=== PATIENT | male | born 1945 | race Caucasian/White ===

== ENCOUNTER 2017-01-11 20:45 | Emergency (ER) | payer MEDICARE, OTHER ==
[2017-01-11 21:16] LABS: Hematocrit 48 % (42-52); Hemoglobin 15.9 g/dl (14.0-18.0); Mean Corpuscular HGB Conc 33 g/dl (31-36); Mean Corpuscular Hemoglobin 35 pg (27-31); Mean Corpuscular Volume 104 fL (80-94); Mean Platelet Volume 7 um3 (7.4-10.4); Red Cell Distribution Width 17 % (10.5-15)
[2017-01-11 21:24] LABS: Add Diff/Slide Review? Slide Review Added; Comments Flag Yes
[2017-01-11 21:31] LABS: ALT 21 U/L (7-52); AST 33 U/L (13-39); Albumin 4.3 g/dL (3.2-5.2); Alkaline Phosphatase 57 U/L (34-104); Anion Gap 13 mmol/L (2-11); BUN/Creatinine Ratio 17.7 (8-20); Blood Urea Nitrogen 25 mg/dL (6-24); CO2 Carbon Dioxide 21 mmol/L (22-32); Calcium 8.7 mg/dL (8.6-10.3); Chloride 105 mmol/L (101-111); EGFR African American 64.1 (>60); EGFR Non-African American 49.8 (>60); Globulin 3.1 g/dL (2-4); Glucose 82 mg/dL (70-100); Potassium 4.5 mmol/L (3.5-5.0); Sodium 139 mmol/L (133-145); Total Protein 7.4 g/dL (6.4-8.9)
[2017-01-11 21:59] LABS: Acetaminophen < 15 mcg/mL; Neutrophil % 41 % (38-83); RBC Morphology Normal (Normal); Reactive Lymph % 3 % (0-6); Salicylate < 2.50 mg/dL (<30)
[2017-01-11 22:00] LABS: Alcohol 440 mg/dL (<10)
[2017-01-11 22:06] LABS: TSH (Thyroid Stimulating Horm) 4.32 mcIU/mL (0.34-5.60)
--- NOTE | 2017-01-11 22:35 | RAD ---
Indication: Fall, head injury. CT of the brain was performed without IV contrast. Ventricular structures are midline. No midline shift is noted. The extra-axial spaces are unremarkable. There is no evidence of intracranial mass or hemorrhage. No other high or low density lesions are identified. Mastoid air cells and paranasal sinuses are otherwise unremarkable. IMPRESSION: No intracranial mass or hemorrhage is noted.
--- NOTE | 2017-01-11 23:49 | ED ---
Meghna Gallegos Alok, scribed for Maria E Laguna MD on 01/11/17 at 2217 . Substance Abuse/Use - HPI Summary HPI Summary: 71M presents to the ED BIBA for ETOH intoxication. Pt's girlfriend notes fall with probable head trauma. - History Of Current Complaint Chief Complaint: EDGeneral Stated Complaint: ETOH Time Seen by Provider: 01/11/17 20:52 Hx Obtained From: Patient, Family/Historical Guide Onset/Duration of Drug/ETOH Abuse: Hours Severity Initially: Moderate Severity Currently: Moderate Character: Other - intoxicated Aggravating Factor(s): Nothing Alleviating Factor(s): Nothing Associated Signs And Symptoms: Altered Mental Status, Other: - Allergies/Home Medications Allergies/Adverse Reactions: Allergies Allergy/AdvReac Type Severity Reaction Status Date / Time No Known Allergies Allergy Verified 01/25/16 09:36 PMH/Surg Hx/FS Hx/Imm Hx Endocrine/Hematology History: Denies: Hx Anticoagulant Therapy, Hx Blood Disorders, Hx Blood Transfusions, Hx Bone Marrow Disease, Hx Diabetes, Hx Systemic Lupus Erythematosus, Hx Sickle Cell Disease, Hx Thyroid Disease, Hx Anemia, Hx Unexplained Bleeding, Other Endocrine/Hematological Disorders Cardiovascular History: Reports: Hx Atrial Fibrillation, Hx Deep Vein Thrombosis , Hx Embolism - Pulmonary Embolism, Hx Hypercholesterolemia, Hx Hypertension - TAKES NO MEDS, Other Cardiovascular Problems/Disorders - HIGH CHOLESTEROL Denies: Hx Aneurysm, Hx Angina, Hx Auto Implanted Cardiovert Defib, Hx Cardiac Arrest, Hx Cardiomegaly, Hx Congenital Heart Disease, Hx Congestive Heart Failure, Hx Coronary Artery Disease, Hx Hypotension, Hx Pacemaker/ICD, Hx Peripheral Vascular Disease, Hx Rheumatic Fever, Hx Syncope, Hx Valvular Heart Disease Respiratory History: Reports: Hx Pleural Effusion, Hx Pulmonary Embolism Denies: Hx Asthma, Hx Chronic Bronchitis, Hx Chronic Obstructive Pulmonary Disease (COPD), Hx Cystic Fibrosis, Hx Lung Cancer, Hx Pneumonia, Hx Pulmonary Edema, Hx Seasonal Allergies, Hx Sleep Apnea, Other Respiratory Problems/ Disorders GI History: Denies: Hx Cirrhosis, Hx Crohn's Disease, Hx Diverticulosis, Hx Gall Bladder Disease, Hx Gastroesophageal Reflux Disease, Hx Gastrointestinal Bleed, Hx Hiatal Hernia, Hx Irritable Bowel, Hx Jaundice, Hx Obstructive Bowel, Hx Ileostomy, Hx Pyloric Stenosis, Hx Ulcer, Other GI Disorders History: Denies: Hx Acute Renal Failure, Hx Benign Prostatic Hyperplasia, Hx Chronic Renal Failure, Hx Dialysis, Hx Kidney Infection, Hx Kidney Stones, Other Problems/Disorders Musculoskeletal History: Reports: Other Musculoskeletal History - R hip relpacement Denies: Hx Arthritis, Hx Back Problems, Hx Bursitis, Hx Congenital Bone Abnormalities, Hx Fibromyalgia, Hx Gout, Hx Orthopedic Injury, Hx Osteoporosis, Hx Scoliosis, Hx Tendonitis Sensory History: Reports: Hx Contacts or Glasses Denies: Hx Cataracts, Hx Eye Injury, Hx Eye Prosthesis, Hx Glaucoma, Hx Legally Blind, Hx Macular Degeneration, Hx Vision Problem, Hx Deafness, Hx Hearing Aid, Hx Hearing Problem, Other Sensory Impairments Opthamlomology History: Reports: Hx Contacts or Glasses Denies: Hx Cataracts, Hx Eye Injury, Hx Eye Prosthesis, Hx Glaucoma, Hx Legally Blind, Hx Macular Degeneration, Hx Vision Problem, Other Sensory Impairments Neurological History: Reports: Other Neuro Impairments/Disorders - Bilateral foot numbness Denies: Hx Dementia, Hx Developmental Delay, Hx Headaches, Hx Migraine, Hx Nerve Disease, Hx Seizures, Hx Spinal Cord Injury, Hx Transient Ischemic Attacks (TIA) Psychiatric History: Reports: Hx Anxiety, Hx Depression, Hx Inpatient Treatment , Hx Community Mental Health Tx, Hx Suicide Attempt, Hx Substance Abuse Denies: Hx Attention Deficit Hyperactivity Disorder, Hx Eating Disorder, Hx Panic Disorder, Hx Post Traumatic Stress Disorder, Hx Schizophrenia, Hx Bipolar Disorder, Hx of Violent Episodes Against Others, Other Psychiatric Issues/ Disorders - Surgical History Surgery Procedure, Year, and Place: RT HIP REPLACEMENT Hx Anesthesia Reactions: No - Immunization History Date of Tetanus Vaccine: Unk Date of Influenza Vaccine: Unk Infectious Disease History: No Infectious Disease History: Reports: Hx Hepatitis - Reported via blood bank upon donation, Hx Shingles Denies: Hx Clostridium Difficile, Hx Human Immunodeficiency Virus (HIV), Hx of Known/Suspected MRSA, Hx Tuberculosis, History Other Infectious Disease, Traveled Outside the [place] in Last 30 Days - Family History Known Family History: Negative: Cardiac Disease, Hypertension, Diabetes - Social History Lives: Alone Alcohol Use: Daily Alcohol Amount: gin Hx Substance Use: No Substance Use Type: Reports: None Hx Tobacco Use: No Smoking Status (MU): Never Smoked Tobacco Review of Systems Negative: Fever Positive: Other - ETOH intoxication All Other Systems Reviewed And Are Negative: Yes Physical Exam Triage Information Reviewed: Yes Vital Signs On Initial Exam: Initial Vitals BP 144/85 01/11/17 20:56 Vital Signs Reviewed: Yes Appearance: Positive: Well-Appearing, No Pain Distress Skin: Positive: Warm, Skin Color Reflects Adequate Perfusion, Dry Eyes: Positive: EOMI, MELISSA ENT: Positive: Pharynx normal, TMs normal Neck: Positive: Supple, Nontender Respiratory/Lung Sounds: Positive: Clear to Auscultation, Breath Sounds Present. Negative: Rales, Rhonchi, Wheezes Cardiovascular: Positive: RRR, Other - no gallop. Negative: Murmur, Rub Abdomen Description: Positive: Nontender, Soft, Other: - no rebound. Negative: Distended, Guarding Bowel Sounds: Positive: Present Musculoskeletal: Positive: Strength/ROM Intact. Negative: Edema Left, Edema Right Neurological: Positive: Sensory/Motor Intact, Alert, Oriented to Person Place, Time, CN Intact II-III Psychiatric: Positive: Affect/Mood Appropriate - [place] Coma Scale Coma Scale Total: 15 Diagnostics - Vital Signs Vital Signs Temp Pulse Resp BP Pulse Ox 01/11/17 21:58 69 16 99/64 01/11/17 21:30 73 14 99/64 92 01/11/17 21:21 98.4 F 58 16 123/78 95 01/11/17 21:18 98.4 F 58 16 123/78 95 01/11/17 21:00 98 14 123/78 96 01/11/17 20:58 60 16 97 01/11/17 20:56 144/85 - Laboratory Lab Results: Lab Results 01/11/17 01/11/17 Range/Units 21:10 21:10 WBC 9.0 (3.5-10.8) 10^3/ul RBC 4.60 (4.0-5.4) 10^6/ul Hgb 15.9 (14.0-18.0) g/dl Hct 48 (42-52) % MCV 104 H (80-94) fL MCH 35 H (27-31) pg MCHC 33 (31-36) g/dl RDW 17 H (10.5-15) % Plt Count 213 (150-450) 10^3/ul MPV 7 L (7.4-10.4) um3 Neut % (Auto) 39.9 (38-83) % Lymph % (Auto) 51.3 H (25-47) % [place] % (Auto) 6.6 (1-9) % Eos % (Auto) 0.5 (0-6) % Baso % (Auto) 1.7 (0-2) % Absolute Neuts (auto) 3.6 (1.5-7.7) 10^3/ul Absolute Lymphs (auto) 4.6 (1.0-4.8) 10^3/ul Absolute Monos (auto) 0.6 (0-0.8) 10^3/ul Absolute Eos (auto) 0 (0-0.6) 10^3/ul Absolute Basos (auto) 0.2 (0-0.2) 10^3/ul Absolute Nucleated RBC 0.01 10^3/ul Neutrophils % 41 (38-83) % Lymphocytes % 53 H (25-47) % Reactive Lymphs % 3 (0-6) % Monocytes % 2 (0-13) % Basophils % 1 (0-2) % Nucleated RBC % 0.1 Normal RBC Morphology Normal (Normal) Sodium 139 (133-145) mmol/L Potassium 4.5 (3.5-5.0) mmol/L Chloride 105 (101-111) mmol/L Carbon Dioxide 21 L (22-32) mmol/L Anion Gap 13 H (2-11) mmol/L BUN 25 H (6-24) mg/dL Creatinine 1.41 H (0.67-1.17) mg/dL Est GFR ( Amer) 64.1 (>60) Est GFR (Non-Af Amer) 49.8 (>60) BUN/Creatinine Ratio 17.7 (8-20) Glucose 82 (70-100) mg/dL Calcium 8.7 (8.6-10.3) mg/dL Total Bilirubin 0.60 (0.2-1.0) mg/dL AST 33 (13-39) U/L ALT 21 (7-52) U/L Alkaline Phosphatase 57 (34-104) U/L Total Protein 7.4 (6.4-8.9) g/dL Albumin 4.3 (3.2-5.2) g/dL Globulin 3.1 (2-4) g/dL Albumin/Globulin Ratio 1.4 (1-3) TSH 4.32 (0.34-5.60) mcIU/mL Salicylates < 2.50 (<30) mg/dL Acetaminophen < 15 mcg/mL Serum Alcohol 440 H* (<10) mg/dL Result Diagrams: 01/11/17 21:10 01/11/17 21:10 Lab Statement: Any lab studies that have been ordered have been reviewed, and results considered in the medical decision making process. - CT Brain CT CT Interpretation: Positive (See Comments) - IMPRESSION: No intracranial mass or hemorrhage is noted. CT Interpretation Completed By: Radiologist Course/Dx - Course Course Of Treatment: 71 yo male here after girlfriend found lodged between couch and wall, but she was unable to pick him up. He is asking for her to come , but his level is over 400, plan is for her to come at 5am and get him.CT brain neg no signs of trauma - Diagnoses Provider Diagnoses: ETOH intoxication Discharge - Discharge Plan Condition: Stable Disposition: HOME Patient Education Materials: Alcohol Intoxication (ED) Referrals: Onur Rodriguez MD [Primary Care Provider] - The documentation as recorded by the Meghna quintanilla Alok accurately reflects the service I personally performed and the decisions made by me, Maria E Lagnua MD.
[2017-01-12] MEDS ORDERED: LORazepam TAB(*) 1 MG PO ONE (01:37)
[2017-01-12 05:25] VITALS: BP 117/77
== END 2017-01-12 05:23 | disposition home or self-care (01) ==
LOC: ED 20:45
DX: F10.129 Alcohol abuse with intoxication, unspecified (principal); Y90.8 Blood alcohol level of 240 mg/100 ml or more; I10 Essential (primary) hypertension; I48.91 Unspecified atrial fibrillation; E78.00 Pure hypercholesterolemia, unspecified; F41.9 Anxiety disorder, unspecified; F32.9 Major depressive disorder, single episode, unspecified; Z86.718 Personal history of other venous thrombosis and embolism; Z86.711 Personal history of pulmonary embolism; Z96.641 Presence of right artificial hip joint
CPT/HCPCS: 36415; 70450; 80053; 80320; 80329; 84443; 85025; 99284; A9270-GY; G0480

== ENCOUNTER 2017-11-17 13:10 | Emergency (ER) | payer MEDICARE, OTHER ==
[2017-11-17] MEDS ORDERED: NS 0.9% 1000 ML* 2,000 ML IV ONE ×2 (14:56→17:32)
[2017-11-17 15:06] LABS: ABS Basophils 0.1 10^3/ul (0-0.2); ABS Eosinophils 0 10^3/ul (0-0.6); ABS Lymphocytes 2.3 10^3/ul (1.0-4.8); ABS Monocytes 0.3 10^3/ul (0-0.8); ABS Neutrophils 2.5 10^3/ul (1.5-7.7); ABS Nucleated RBC 0 10^3/ul; Eosinophil % 0.8 % (0-6); Hematocrit 44 % (42-52); Hemoglobin 15.1 g/dl (14.0-18.0); Lymphocyte % 43.4 % (25-47); Mean Corpuscular HGB Conc 34 g/dl (31-36); Mean Corpuscular Hemoglobin 35 pg (27-31); Mean Corpuscular Volume 101 fL (80-94); Mean Platelet Volume 7.3 um3 (7.4-10.4); Nucleated Red Blood Cells % 0.1; Platelet Count 144 10^3/ul (150-450); Red Blood Count 4.37 10^6/ul (4.0-5.4); Red Cell Distribution Width 14 % (10.5-15); White Blood Count 5.2 10^3/ul (3.5-10.8)
[2017-11-17 15:22] LABS: EGFR Non-African American 60.4 (>60)
[2017-11-17 18:26] VITALS: BP 139/90
--- NOTE | 2017-11-17 19:07 | ED ---
Ting Gallegos Emily, scribed for Lisseth Ackerman MD on 11/17/17 at 1435 . Substance Abuse/Use - HPI Summary HPI Summary: This patient is a 72 year old M BIBA to [facility] accompanied by friend with a chief complaint of ETOH intoxication that occurred [employer]. The patient rates the pain 0/10 in severity. Symptoms aggravated by nothing. Symptoms alleviated by nothing. Patient reports purple finger tips. Patient denies CP and SOB. Pt reports having 2L of gin [employer]. - History Of Current Complaint Chief Complaint: EDSubstanceAbuse Stated Complaint: ETOH Time Seen by Provider: 11/17/17 13:47 Hx Obtained From: Patient Ingestion History: Type/Name Of Drug - ETOH Overdose Characteristics: Oral Timing Of Abuse: Daily Severity Initially: Mild Severity Currently: Mild Aggravating Factor(s): Nothing Alleviating Factor(s): Nothing - Allergies/Home Medications Allergies/Adverse Reactions: Allergies Allergy/AdvReac Type Severity Reaction Status Date / Time No Known Allergies Allergy Verified 11/17/17 13:32 PMH/Surg Hx/FS Hx/Imm Hx Previously Healthy: No Endocrine/Hematology History: Denies: Hx Anticoagulant Therapy, Hx Blood Disorders, Hx Blood Transfusions, Hx Bone Marrow Disease, Hx Diabetes, Hx Systemic Lupus Erythematosus, Hx Sickle Cell Disease, Hx Thyroid Disease, Hx Anemia, Hx Unexplained Bleeding, Other Endocrine/Hematological Disorders Cardiovascular History: Reports: Hx Atrial Fibrillation, Hx Deep Vein Thrombosis , Hx Embolism - Pulmonary Embolism, Hx Hypercholesterolemia, Hx Hypertension - TAKES NO MEDS, Other Cardiovascular Problems/Disorders - HIGH CHOLESTEROL Denies: Hx Aneurysm, Hx Angina, Hx Auto Implanted Cardiovert Defib, Hx Cardiac Arrest, Hx Cardiomegaly, Hx Congenital Heart Disease, Hx Congestive Heart Failure, Hx Coronary Artery Disease, Hx Hypotension, Hx Pacemaker/ICD, Hx Peripheral Vascular Disease, Hx Rheumatic Fever, Hx Syncope, Hx Valvular Heart Disease Respiratory History: Reports: Hx Pleural Effusion, Hx Pulmonary Embolism Denies: Hx Asthma, Hx Chronic Bronchitis, Hx Chronic Obstructive Pulmonary Disease (COPD), Hx Cystic Fibrosis, Hx Lung Cancer, Hx Pneumonia, Hx Pulmonary Edema, Hx Seasonal Allergies, Hx Sleep Apnea, Other Respiratory Problems/ Disorders GI History: Denies: Hx Cirrhosis, Hx Crohn's Disease, Hx Diverticulosis, Hx Gall Bladder Disease, Hx Gastroesophageal Reflux Disease, Hx Gastrointestinal Bleed, Hx Hiatal Hernia, Hx Irritable Bowel, Hx Jaundice, Hx Obstructive Bowel, Hx Ileostomy, Hx Pyloric Stenosis, Hx Ulcer, Other GI Disorders History: Denies: Hx Acute Renal Failure, Hx Benign Prostatic Hyperplasia, Hx Chronic Renal Failure, Hx Dialysis, Hx Kidney Infection, Hx Kidney Stones, Hx Renal Disease, Other Problems/Disorders Musculoskeletal History: Reports: Other Musculoskeletal History - R hip relpacement Denies: Hx Arthritis, Hx Back Problems, Hx Bursitis, Hx Congenital Bone Abnormalities, Hx Fibromyalgia, Hx Gout, Hx Orthopedic Injury, Hx Osteoporosis, Hx Scoliosis, Hx Tendonitis Sensory History: Reports: Hx Contacts or Glasses Denies: Hx Cataracts, Hx Eye Injury, Hx Eye Prosthesis, Hx Glaucoma, Hx Legally Blind, Hx Macular Degeneration, Hx Vision Problem, Hx Deafness, Hx Hearing Aid, Hx Hearing Problem, Other Sensory Impairments Opthamlomology History: Reports: Hx Contacts or Glasses Denies: Hx Cataracts, Hx Eye Injury, Hx Eye Prosthesis, Hx Glaucoma, Hx Legally Blind, Hx Macular Degeneration, Hx Vision Problem, Other Sensory Impairments Neurological History: Reports: Other Neuro Impairments/Disorders - Bilateral foot numbness Denies: Hx Dementia, Hx Developmental Delay, Hx Headaches, Hx Migraine, Hx Nerve Disease, Hx Seizures, Hx Spinal Cord Injury, Hx Transient Ischemic Attacks (TIA) Psychiatric History: Reports: Hx Anxiety, Hx Depression, Hx Inpatient Treatment , Hx Community Mental Health Tx, Hx Suicide Attempt, Hx Substance Abuse Denies: Hx Attention Deficit Hyperactivity Disorder, Hx Eating Disorder, Hx Panic Disorder, Hx Post Traumatic Stress Disorder, Hx Schizophrenia, Hx Bipolar Disorder, Hx of Violent Episodes Against Others, Other Psychiatric Issues/ Disorders - Surgical History Surgery Procedure, Year, and Place: RT HIP REPLACEMENT Hx Anesthesia Reactions: No - Immunization History Date of Tetanus Vaccine: Unk Date of Influenza Vaccine: Unk Infectious Disease History: No Infectious Disease History: Reports: Hx Hepatitis - Reported via blood bank upon donation, Hx Shingles Denies: Hx Clostridium Difficile, Hx Human Immunodeficiency Virus (HIV), Hx of Known/Suspected MRSA, Hx Tuberculosis, History Other Infectious Disease, Traveled Outside the [place] in Last 30 Days - Family History Known Family History: Positive: None Negative: Cardiac Disease, Hypertension, Diabetes - Social History Occupation: Retired Lives: Alone Alcohol Use: Daily Alcohol Amount: gin Hx Substance Use: No Substance Use Type: Reports: None Hx Tobacco Use: No Smoking Status (MU): Never Smoked Tobacco Review of Systems Positive: Other - Positive purple fingertips. Negative: Chest Pain Negative: Shortness Of Breath All Other Systems Reviewed And Are Negative: Yes Physical Exam - Summary Physical Exam Summary: Appearance: Obese, Intoxicated Skin: Warm, no evidence of cyanosis Eyes: Normal ENT: Normal Head/Face: bilateral erythematous cheeks Neck: Supple, nontender Respiratory: Clear to auscultation Cardiovascular: Regular rate, regular rhythm. Normal S1, S2. Capillary refill less than 2 seconds Abdomen: Soft, nontender Musculoskeletal: Normal, Strength/ROM Intact Neurological: Normal, A&Ox3 Psychiatric: Normal General: No acute distress Triage Information Reviewed: Yes Vital Signs On Initial Exam: Initial Vitals Temp Pulse Resp BP Pulse Ox 98.3 F 82 16 118/64 92 11/17/17 13:32 11/17/17 13:32 11/17/17 13:32 11/17/17 13:32 11/17/17 13:32 Vital Signs Reviewed: Yes - [place] Coma Scale Best Eye Response: 4 - Spontaneous Best Motor Response: 6 - Obeys Commands Best Verbal Response: 5 - Oriented Coma Scale Total: 15 Diagnostics - Vital Signs Vital Signs Temp Pulse Resp BP Pulse Ox 11/17/17 13:32 98.3 F 82 16 118/64 92 - Laboratory Lab Results: Lab Results 11/17/17 11/17/17 11/17/17 Range/Units 14:56 14:56 14:56 WBC 5.2 (3.5-10.8) 10^3/ul RBC 4.37 (4.0-5.4) 10^6/ul Hgb 15.1 (14.0-18.0) g/dl Hct 44 (42-52) % MCV 101 H (80-94) fL MCH 35 H (27-31) pg MCHC 34 (31-36) g/dl RDW 14 (10.5-15) % Plt Count 144 L (150-450) 10^3/ul MPV 7.3 L (7.4-10.4) um3 Neut % (Auto) 48.6 (38-83) % Lymph % (Auto) 43.4 (25-47) % [place] % (Auto) 6.0 (0-7) % Eos % (Auto) 0.8 (0-6) % Baso % (Auto) 1.2 (0-2) % Absolute Neuts (auto) 2.5 (1.5-7.7) 10^3/ul Absolute Lymphs (auto) 2.3 (1.0-4.8) 10^3/ul Absolute Monos (auto) 0.3 (0-0.8) 10^3/ul Absolute Eos (auto) 0 (0-0.6) 10^3/ul Absolute Basos (auto) 0.1 (0-0.2) 10^3/ul Absolute Nucleated RBC 0 10^3/ul Nucleated RBC % 0.1 Sodium 143 (139-145) mmol/L Potassium 4.2 (3.5-5.0) mmol/L Chloride 104 (101-111) mmol/L Carbon Dioxide 24 (22-32) mmol/L Anion Gap 15 H (2-11) mmol/L BUN 31 H (6-24) mg/dL Creatinine 1.19 H (0.67-1.17) mg/dL Est GFR ( Amer) 77.7 (>60) Est GFR (Non-Af Amer) 60.4 (>60) BUN/Creatinine Ratio 26.1 H (8-20) Glucose 121 H (70-100) mg/dL Lactic Acid 2.8 H* (0.5-2.0) mmol/L Calcium 8.8 (8.6-10.3) mg/dL Total Bilirubin 0.60 (0.2-1.0) mg/dL AST 35 (13-39) U/L ALT 30 (7-52) U/L Alkaline Phosphatase 43 (34-104) U/L Troponin I 0.00 (<0.04) ng/mL Total Protein 7.3 (6.4-8.9) g/dL Albumin 4.3 (3.2-5.2) g/dL Globulin 3.0 (2-4) g/dL Albumin/Globulin Ratio 1.4 (1-3) TSH 3.07 (0.34-5.60) mcIU/mL Salicylates < 2.50 (<30) mg/dL Acetaminophen < 15 mcg/mL Serum Alcohol 377 H (<10) mg/dL Result Diagrams: 11/17/17 14:56 11/17/17 14:56 Lab Statement: Any lab studies that have been ordered have been reviewed, and results considered in the medical decision making process. Course/Dx - Course Assessment/Plan: after 1L of IVF pt REFUSED TO STAY LONGER. PARTNER NOTIFIED. DISCUSSED RISKS OF LEAVING AMA INCLUDING FALL AND DT'S OR WORSE. PT STILL WISHES TO GO AMA. PARTNER CAME TO GET PT AND TO DRIVE HIM HOME AND LEFT AMA - Diagnoses Provider Diagnoses: Alcohol intoxication, Alcohol abuse Discharge - Sign-Out/Discharge Documenting (check all that apply): Discharge - Left AMA - Discharge Plan Condition: Stable Disposition: AGAINST MEDICAL ADVICE Referrals: Onur Rodriguez MD [Primary Care Provider] - - Billing Disposition and Condition Condition: STABLE Disposition: AMA The documentation as recorded by the Ting quintanilla Emily accurately reflects the service I personally performed and the decisions made by me, Lisseth Ackerman MD.
== END 2017-11-17 17:45 | disposition left against medical advice (07) ==
LOC: ED 13:10
DX: F10.129 Alcohol abuse with intoxication, unspecified (principal); Z53.21 Procedure and treatment not carried out due to patient leaving prior to being seen by health care provider
CPT/HCPCS: 36415; 80053; 80320; 80329; 83605; 84443; 84484; 85025; 96360; 99283; G0480

== ENCOUNTER 2017-11-20 10:54 | Inpatient (IN) | payer MEDICARE, OTHER ==
[2017-11-20] MEDS ORDERED: LORazepam INJ* 2 MG/ML 1 ML VIAL IV PUSH ONE ×2 (11:20→13:08)
[2017-11-20] MEDS ORDERED: Ondansetron INJ* 2 MG/ML VIAL IV ONE (11:20)
[2017-11-20] MEDS ORDERED: Thiamine IV* 100 MG/ML 2 ML VIAL IV ONE (11:20)
[2017-11-20] MEDS: NS 0.9% 1000 ML* 2,000 ML IV ONE (11:40)
[2017-11-20] MEDS ORDERED: Thiamine IV* 100 MG in NS 0.9% 50 ML* 50 ML IV ONE (12:00)
[2017-11-20 12:08] LABS: Hematocrit 37 % (42-52); Hemoglobin 12.8 g/dl (14.0-18.0); Mean Corpuscular HGB Conc 35 g/dl (31-36); Mean Corpuscular Hemoglobin 35 pg (27-31); Mean Corpuscular Volume 101 fL (80-94); Red Blood Count 3.66 10^6/ul (4.0-5.4); Red Cell Distribution Width 14 % (10.5-15); White Blood Count 8.9 10^3/ul (3.5-10.8)
[2017-11-20 12:09] LABS: INR 1.25 (0.77-1.02)
[2017-11-20 12:21] LABS: EGFR Non-African American 62.9 (>60)
[2017-11-20 12:26] LABS: Urine Appearance Clear; Urine Blood 1+ (Negative); Urine Color Yellow; Urine Ketones Trace (Negative); Urine Protein Negative (Negative); Urine Specific Gravity 1.013 (1.010-1.030); Urine Urobilinogen Negative (Negative)
[2017-11-20 12:35] LABS: ABS Basophils 0.1 10^3/ul (0-0.2); ABS Eosinophils 0 10^3/ul (0-0.6); ABS Lymphocytes 0.4 10^3/ul (1.0-4.8); ABS Monocytes 0.3 10^3/ul (0-0.8); ABS Neutrophils 8.1 10^3/ul (1.5-7.7); ABS Nucleated RBC 0 10^3/ul; Eosinophil % 0.1 % (0-6); Lymphocyte % 4.9 % (25-47); Nucleated Red Blood Cells % 0; Platelet Count 91 10^3/ul (150-450)
--- NOTE | 2017-11-20 13:02 | RAD ---
INDICATION: Hypoxemia. Fever COMPARISON: [id number] TECHNIQUE: PA and lateral dual-energy views were obtained. FINDINGS: Bones/Soft Tissues: There are no acute bony findings. Cardiomediastinal: The cardiomediastinal silhouette is normal. Lungs: There are no infiltrates. There is hyperinflation. Pleura: There are no pleural effusions. Other: None IMPRESSION: HYPERINFLATION. NO ACTIVE DISEASE.
[2017-11-20] MEDS ORDERED: Metoprolol Tartrate IV* 1 MG/ML 5 ML VIAL IV ONE (13:08)
[2017-11-20] MEDS ORDERED: Al Hydrox/Mg Hydrox/Simet LIQ* 30 ML UDC PO PRN (13:31)
[2017-11-20] MEDS ORDERED: Ondansetron INJ* 2 MG/ML VIAL IV PRN (13:31)
[2017-11-20] MEDS ORDERED: Iohexol 350* (CONTRAST) 500 ML MDV IV ONE (13:35)
[2017-11-20] MEDS ORDERED: Acetaminophen TAB* 325 MG PO PRN ×2 (13:37→14:28)
[2017-11-20] MEDS ORDERED: Magnesium Sulfate 2 GM IV* 2 GM/50 ML BAG IVPB ONE (13:58)
--- NOTE | 2017-11-20 13:58 | ED ---
Sofya Gallegos Julia, scribed for Troy Jimenez MD on 11/20/17 at 1126 . Substance Abuse/Use - HPI Summary HPI Summary: This patient is a 72 year old M presenting [facility] accompanied by a friend with a chief complaint of tremors, difficulty ambulating, nausea and vomiting for the past two days. Patient has a history of alcohol abuse, but was sober for the past eight months before relapsing on 11/10/17. He states he has been drinking a liter of gin each day for ten days. He was seen in the ED, drunk, on 11/17/17. He has not eaten yet today. He states he doesnt know why he began drinking again, and has gone through withdrawal and rehab multiple times. Patient denies current pain. Medications list reviewed. - History Of Current Complaint Chief Complaint: EDSubstanceAbuse Stated Complaint: ALCOHOL WITHDRAWALS Time Seen by Provider: 11/20/17 11:11 Hx Obtained From: Patient Onset/Duration of Drug/ETOH Abuse: Increased Since: - 11/10/17 Ingestion History: Type/Name Of Drug - etoh States Increased Use Since: 11/10/17 Overdose Characteristics: Oral Timing Of Abuse: Binge Use, Recent Cessation For A Period Of - 8 months Aggravating Factor(s): Nothing Associated Signs And Symptoms: Nausea, Vomiting, Other: - tremors and difficulty with ambulation Related Hx: Drug/Alcohol Last Used @ - 11/17/17, Prior Drug Abuse Counseling/ Admission - Allergies/Home Medications Allergies/Adverse Reactions: Allergies Allergy/AdvReac Type Severity Reaction Status Date / Time No Known Allergies Allergy Verified 11/17/17 13:32 Home Medications: Home Medications Atorvastatin* [Lipitor*] 20 mg PO BEDTIME 11/20/17 [History Confirmed 11/20/17] PMH/Surg Hx/FS Hx/Imm Hx Endocrine/Hematology History: Denies: Hx Anticoagulant Therapy, Hx Blood Disorders, Hx Blood Transfusions, Hx Bone Marrow Disease, Hx Diabetes, Hx Systemic Lupus Erythematosus, Hx Sickle Cell Disease, Hx Thyroid Disease, Hx Anemia, Hx Unexplained Bleeding, Other Endocrine/Hematological Disorders Cardiovascular History: Reports: Hx Atrial Fibrillation, Hx Deep Vein Thrombosis , Hx Embolism - Pulmonary Embolism, Hx Hypercholesterolemia, Hx Hypertension - TAKES NO MEDS, Other Cardiovascular Problems/Disorders - HIGH CHOLESTEROL Denies: Hx Aneurysm, Hx Angina, Hx Auto Implanted Cardiovert Defib, Hx Cardiac Arrest, Hx Cardiomegaly, Hx Congenital Heart Disease, Hx Congestive Heart Failure, Hx Coronary Artery Disease, Hx Hypotension, Hx Pacemaker/ICD, Hx Peripheral Vascular Disease, Hx Rheumatic Fever, Hx Syncope, Hx Valvular Heart Disease Respiratory History: Reports: Hx Pleural Effusion, Hx Pulmonary Embolism Denies: Hx Asthma, Hx Chronic Bronchitis, Hx Chronic Obstructive Pulmonary Disease (COPD), Hx Cystic Fibrosis, Hx Lung Cancer, Hx Pneumonia, Hx Pulmonary Edema, Hx Seasonal Allergies, Hx Sleep Apnea, Other Respiratory Problems/ Disorders GI History: Denies: Hx Cirrhosis, Hx Crohn's Disease, Hx Diverticulosis, Hx Gall Bladder Disease, Hx Gastroesophageal Reflux Disease, Hx Gastrointestinal Bleed, Hx Hiatal Hernia, Hx Irritable Bowel, Hx Jaundice, Hx Obstructive Bowel, Hx Ileostomy, Hx Pyloric Stenosis, Hx Ulcer, Other GI Disorders History: Denies: Hx Acute Renal Failure, Hx Benign Prostatic Hyperplasia, Hx Chronic Renal Failure, Hx Dialysis, Hx Kidney Infection, Hx Kidney Stones, Hx Renal Disease, Other Problems/Disorders Musculoskeletal History: Reports: Other Musculoskeletal History - R hip relpacement Denies: Hx Arthritis, Hx Back Problems, Hx Bursitis, Hx Congenital Bone Abnormalities, Hx Fibromyalgia, Hx Gout, Hx Orthopedic Injury, Hx Osteoporosis, Hx Scoliosis, Hx Tendonitis Sensory History: Reports: Hx Contacts or Glasses Denies: Hx Cataracts, Hx Eye Injury, Hx Eye Prosthesis, Hx Glaucoma, Hx Legally Blind, Hx Macular Degeneration, Hx Vision Problem, Hx Deafness, Hx Hearing Aid, Hx Hearing Problem, Other Sensory Impairments Opthamlomology History: Reports: Hx Contacts or Glasses Denies: Hx Cataracts, Hx Eye Injury, Hx Eye Prosthesis, Hx Glaucoma, Hx Legally Blind, Hx Macular Degeneration, Hx Vision Problem, Other Sensory Impairments Neurological History: Reports: Other Neuro Impairments/Disorders - Bilateral foot numbness Denies: Hx Dementia, Hx Developmental Delay, Hx Headaches, Hx Migraine, Hx Nerve Disease, Hx Seizures, Hx Spinal Cord Injury, Hx Transient Ischemic Attacks (TIA) Psychiatric History: Reports: Hx Anxiety, Hx Depression, Hx Inpatient Treatment , Hx Community Mental Health Tx, Hx Suicide Attempt, Hx Substance Abuse Denies: Hx Attention Deficit Hyperactivity Disorder, Hx Eating Disorder, Hx Panic Disorder, Hx Post Traumatic Stress Disorder, Hx Schizophrenia, Hx Bipolar Disorder, Hx of Violent Episodes Against Others, Other Psychiatric Issues/ Disorders - Surgical History Surgery Procedure, Year, and Place: RT HIP REPLACEMENT Hx Anesthesia Reactions: No - Immunization History Date of Tetanus Vaccine: Unk Date of Influenza Vaccine: Unk Infectious Disease History: Yes Infectious Disease History: Reports: Hx Hepatitis - Reported via blood bank upon donation, Hx Shingles Denies: Hx Clostridium Difficile, Hx Human Immunodeficiency Virus (HIV), Hx of Known/Suspected MRSA, Hx Tuberculosis, History Other Infectious Disease, Traveled Outside the [place] in Last 30 Days - Family History Known Family History: Negative: Cardiac Disease, Hypertension, Diabetes - Social History Lives: Alone Alcohol Use: Daily Alcohol Amount: gin Hx Substance Use: No Substance Use Type: Reports: None Hx Tobacco Use: No Smoking Status (MU): Never Smoked Tobacco Review of Systems Positive: Vomiting, Nausea Neurological: Other - tremors, difficulty walking All Other Systems Reviewed And Are Negative: Yes Physical Exam - Summary Physical Exam Summary: Appearance: Well appearing, no pain distress Skin: warm, dry, reflects adequate perfusion, moist mucous membranes Head/face: normal Eyes: EOMI, MELISSA, no nystagmus ENT: normal Neck: supple, non-tender Respiratory: CTA, breath sounds present Cardiovascular: Tachycardic, mostly regular rate with some irregularity, pulses symmetrical Abdomen: non-tender, soft Bowel Sounds: present Musculoskeletal: strength/ROM intact, tremoring Neuro: normal, sensory motor intact, A&Ox3 Triage Information Reviewed: Yes Vital Signs On Initial Exam: Initial Vitals Temp Pulse Resp BP Pulse Ox 99.1 F 113 20 174/103 99 11/20/17 11:01 11/20/17 11:01 11/20/17 11:01 11/20/17 11:01 11/20/17 11:01 Vital Signs Reviewed: Yes Diagnostics - Vital Signs Vital Signs Temp Pulse Resp BP Pulse Ox 11/20/17 11:01 99.1 F 113 20 174/103 99 - Laboratory Lab Results: Lab Results 11/20/17 11/20/17 11/20/17 Range/Units 11:37 11:40 11:40 WBC 8.9 (3.5-10.8) 10^3/ul RBC 3.66 L (4.0-5.4) 10^6/ul Hgb 12.8 L (14.0-18.0) g/dl Hct 37 L (42-52) % MCV 101 H (80-94) fL MCH 35 H (27-31) pg MCHC 35 (31-36) g/dl RDW 14 (10.5-15) % Plt Count 91 L D (150-450) 10^3/ul MPV 8.0 (7.4-10.4) um3 Neut % (Auto) 90.9 H (38-83) % Lymph % (Auto) 4.9 L (25-47) % Casey % (Auto) 3.5 (0-7) % Eos % (Auto) 0.1 (0-6) % Baso % (Auto) 0.6 (0-2) % Absolute Neuts (auto) 8.1 H (1.5-7.7) 10^3/ul Absolute Lymphs (auto) 0.4 L (1.0-4.8) 10^3/ul Absolute Monos (auto) 0.3 (0-0.8) 10^3/ul Absolute Eos (auto) 0 (0-0.6) 10^3/ul Absolute Basos (auto) 0.1 (0-0.2) 10^3/ul Absolute Nucleated RBC 0 10^3/ul Nucleated RBC % 0 Hem Pathologist Commnt Pending INR (Anticoag Therapy) (0.77-1.02) ABG pH 7.56 H (7.35-7.45) ABG pCO2 27 L (35-45) mmHg ABG pO2 57 L* (80-100) mmHg ABG HCO3 27.1 (19-31) mmol/L ABG O2 Saturation 95.6 (95-98) % ABG Base Excess 3.0 H (-2.0-2.0) Sodium (139-145) mmol/L Potassium (3.5-5.0) mmol/L Chloride (101-111) mmol/L Carbon Dioxide (22-32) mmol/L Anion Gap (2-11) mmol/L BUN (6-24) mg/dL Creatinine (0.67-1.17) mg/dL Est GFR ( Amer) (>60) Est GFR (Non-Af Amer) (>60) BUN/Creatinine Ratio (8-20) Glucose (70-100) mg/dL Lactic Acid 1.6 (0.5-2.0) mmol/L Calcium (8.6-10.3) mg/dL Magnesium (1.9-2.7) mg/dL Total Bilirubin (0.2-1.0) mg/dL AST (13-39) U/L ALT (7-52) U/L Alkaline Phosphatase (34-104) U/L Total Protein (6.4-8.9) g/dL Albumin (3.2-5.2) g/dL Globulin (2-4) g/dL Albumin/Globulin Ratio (1-3) Vitamin B12 (180-914) pg/mL Folate (>3.99) ng/mL TSH (0.34-5.60) mcIU/mL Urine Color Urine Appearance Urine pH (5-9) Ur Specific [place] (1.010-1.030) Urine Protein (Negative) Urine Ketones (Negative) Urine Blood (Negative) Urine Nitrate (Negative) Urine Bilirubin (Negative) Urine Urobilinogen (Negative) Ur Leukocyte Esterase (Negative) Urine WBC (Auto) (Absent) Urine RBC (Auto) (Absent) Ur Squamous Epith Cells (Absent) Urine Bacteria (Absent) Urine Glucose (Negative) 11/20/17 11/20/17 11/20/17 Range/Units 11:40 11:40 11:50 WBC (3.5-10.8) 10^3/ul RBC (4.0-5.4) 10^6/ul Hgb (14.0-18.0) g/dl Hct (42-52) % MCV (80-94) fL MCH (27-31) pg MCHC (31-36) g/dl RDW (10.5-15) % Plt Count (150-450) 10^3/ul MPV (7.4-10.4) um3 Neut % (Auto) (38-83) % Lymph % (Auto) (25-47) % Casey % (Auto) (0-7) % Eos % (Auto) (0-6) % Baso % (Auto) (0-2) % Absolute Neuts (auto) (1.5-7.7) 10^3/ul Absolute Lymphs (auto) (1.0-4.8) 10^3/ul Absolute Monos (auto) (0-0.8) 10^3/ul Absolute Eos (auto) (0-0.6) 10^3/ul Absolute Basos (auto) (0-0.2) 10^3/ul Absolute Nucleated RBC 10^3/ul Nucleated RBC % Hem Pathologist Commnt INR (Anticoag Therapy) 1.25 H (0.77-1.02) ABG pH (7.35-7.45) ABG pCO2 (35-45) mmHg ABG pO2 (80-100) mmHg ABG HCO3 (19-31) mmol/L ABG O2 Saturation (95-98) % ABG Base Excess (-2.0-2.0) Sodium 132 L D (139-145) mmol/L Potassium 3.9 (3.5-5.0) mmol/L Chloride 100 L (101-111) mmol/L Carbon Dioxide 21 L (22-32) mmol/L Anion Gap 11 (2-11) mmol/L BUN 17 (6-24) mg/dL Creatinine 1.15 (0.67-1.17) mg/dL Est GFR ( Amer) 80.9 (>60) Est GFR (Non-Af Amer) 62.9 (>60) BUN/Creatinine Ratio 14.8 (8-20) Glucose 143 H (70-100) mg/dL Lactic Acid (0.5-2.0) mmol/L Calcium 8.6 (8.6-10.3) mg/dL Magnesium 1.2 L (1.9-2.7) mg/dL Total Bilirubin 1.20 H (0.2-1.0) mg/dL AST 30 (13-39) U/L ALT 21 (7-52) U/L Alkaline Phosphatase 49 (34-104) U/L Total Protein 6.5 (6.4-8.9) g/dL Albumin 3.9 (3.2-5.2) g/dL Globulin 2.6 (2-4) g/dL Albumin/Globulin Ratio 1.5 (1-3) Vitamin B12 991 H (180-914) pg/mL Folate > 20.00 (>3.99) ng/mL TSH 2.73 (0.34-5.60) mcIU/mL Urine Color Yellow Urine Appearance Clear Urine pH 7.0 (5-9) Ur Specific [place] 1.013 (1.010-1.030) Urine Protein Negative (Negative) Urine Ketones Trace A (Negative) Urine Blood 1+ A (Negative) Urine Nitrate Negative (Negative) Urine Bilirubin Negative (Negative) Urine Urobilinogen Negative (Negative) Ur Leukocyte Esterase Negative (Negative) Urine WBC (Auto) Trace(0-5/hpf) (Absent) Urine RBC (Auto) Trace(0-2/hpf) (Absent) Ur Squamous Epith Cells Present A (Absent) Urine Bacteria 3+ A (Absent) Urine Glucose Negative (Negative) Result Diagrams: 11/20/17 11:40 11/20/17 11:40 Lab Statement: Any lab studies that have been ordered have been reviewed, and results considered in the medical decision making process. - Radiology CXR Radiology Interpretation Completed By: Radiologist - HYPERINFLATION. NO ACTIVE DISEASE. ED Physician has reviewed this report. - EKG 1141 EKG Rhythm: Atrial Fibrillation - at [address] Segment: Non-Specific EKG Interpretation: nml axis, low voltage Re-Evaluation - Re-Evaluation 1 Re-Evaluation Time: 13:05 Comment: tremors improved Course/Dx - Course Course Of Treatment: pt presents with overt ETOH withdrawl. No hx of seizures in the past. 2mg Ativan with fluids given. On daily thiamine. Hypoxemia without SOB. Will require admission, sz precautions etc. Cont to improve here. No evidence for AKA. - Diagnoses Differential Diagnosis/HQI/PQRI: Positive: Alcohol Abuse, Alcohol Withdrawal, Delirium Tremens, Other - rapid afib, copd Provider Diagnoses: Alcohol withdrawal, Rapid atrial fibrillation, COPD (chronic obstructive pulmonary disease), Hypoxemia - Physician Notifications Discussed Care Of Patient With: Angelina Fernando - hospitalist Time Discussed With Above Provider: 12:57 Instructed by Provider To: Admit As Inpatient - Critical Care Time Critical Care Time: 30-74 min - Exclusive of separately billable procedures Discharge - Sign-Out/Discharge Documenting (check all that apply): Discharge - Discharge Plan Condition: Guarded Disposition: ADMITTED TO [facility] Referrals: Onur Rodriguez MD [Primary Care Provider] - - Billing Disposition and Condition Condition: GUARDED Disposition: [facility] The documentation as recorded by the Sofya quintanilla Julia accurately reflects the service I personally performed and the decisions made by Barbara garcia Kirk, MD.
[2017-11-20] MEDS ORDERED: LORazepam INJ* 2 MG/ML 1 ML VIAL IV PUSH SCH (14:00)
[2017-11-20] MEDS ORDERED: Thiamine IV* 100 MG/ML 2 ML VIAL IM ONE (14:28)
--- NOTE | 2017-11-20 14:41 | RAD ---
Indication: Hypoxia, evaluate for pulmonary embolus. Contrast: Administered 83.2 ml of OMNIPAQUE 350 mg/ml CTA of the chest was performed after IV contrast demonstration. Coronal and sagittal reconstructed images were obtained. The pulmonary arterial tree is well opacified. There are no filling defects present to suggest pulmonary embolus. Bibasilar atelectasis is noted. No evidence of alveolar consolidation is noted. Aorta demonstrates no evidence of aortic dissection. Cardiomegaly is noted. The trachea and major bronchi appear patent. Bibasilar atelectasis is noted. The visualized abdominal organs are otherwise unremarkable. IMPRESSION: No evidence of pulmonary embolus is noted. No definite alveolar consolidation is noted although some minimal pleural thickening is noted. There is cardiomegaly without pericardial effusion noted.
--- NOTE | 2017-11-20 16:00 | HP ---
CC: Dr. Rodriguez * HISTORY AND PHYSICAL: ADDENDUM: DATE OF ADMISSION: 11/20/17 PRIMARY CARE PROVIDER: Dr. Rodriguez. ADDENDUM: This case was discussed and reviewed with Eva Fields, physician assistant center director. Mr. Bethea is a 72-year-old male with a past medical history of AFib, DVT, PE , alcohol abuse, prior retroperitoneal bleed that presented to the emergency room with complaints of difficulty ambulating, nausea, and tremors. The patient had been sober for a month but went on a 10-day farah and quit 4 days ago and now is experiencing alcohol withdrawal. He was found to be tachycardic and hypertensive in the emergency room. His ABG also revealed hypoxia. The patient is going to be admitted for management of his alcohol withdrawal and he will also have a CTA of the chest to rule out PE as his compliance with Eliquis is questionable when he drinks. I discussed the plan of care and management with the admitting physician assistant center director. SANDRA Winters MD [id number]/[facility] #: [id number] MTDD
[2017-11-20] MEDS: LORazepam TAB(*) 1 MG PO SCH ×5 (16:12→23:50)
--- NOTE | 2017-11-20 16:25 | HP ---
ATTENDING ADDENDUM INCLUDED ON THIS REPORT CC: Dr. Onur Rodriguez * ADMISSION HISTORY AND PHYSICAL: DATE OF ADMISSION: 11/20/17 ATTENDING HOSPITALIST: Sandra Winters MD ATTENDING PHYSICIAN WHILE IN THE HOSPITAL: Sandra Winters MD* (DICTATED BY CRISTÓBAL GILMAN) PRIMARY CARE PHYSICIAN: Dr. Rodriguez. CHIEF COMPLAINT: Alcohol withdrawal and depression. HISTORY OF PRESENT ILLNESS: Mr. Bethea is a 72-year-old gentleman who presented to the emergency room today with complaints of alcohol withdrawal since last Sunday. The patient has past medical history significant for atrial fibrillation as well as history of DVT and PE for which he has been on Eliquis for the past 5 years. He also has a history of EtOH abuse with a recent hospitalization about a year and a half ago. The patient notes that he had been sober for the past 10 months; however, starting right after , about a week ago, he started drinking heavily again. He notes drinking about a pint of gin and other liquor on a daily basis. He stopped drinking "cold turkey " last Sunday and felt okay on the following day; however, yesterday, he started to notice some shaking and agitation and today definitely got worse with time for which he presented to the emergency room for evaluation. He denies any chest pain, shortness of breath, syncope, headache, blurred vision, double vision, or seizure. The patient has had history of retroperitoneal hematoma from an arterial bleed for which he had a mobilization performed at [place], [place] back in February of 2016. He has been dealing with major episodes of depression and has been drinking heavily in the past; however, he seemed to be doing well over the past 8 months until last week when he started binge drinking again. He denies any suicidal or homicidal ideation. He does feel nauseated on occasion, but denies any abdominal pain, vomiting, or any other associated symptoms. The patient has a history of depression and was evaluated by mental health unit; however, he was never hospitalized for any mental health issues and has been managed as an outpatient. The patient exhibits some withdrawal symptoms while he is in the ED. He was tachycardic and diaphoretic and received 2 doses of Ativan as well as IV fluid boluses and at the time of admission, he feels fairly comfortable. Again, he denies any palpitation, chest pain, shortness of breath, seizure, hallucination, or any other associated symptoms. He admits to having some tremors on and off, definitely got worse with time since he stopped drinking 3 days ago. Because of his early signs of withdrawal, we were asked to evaluate the patient for admission and management of withdrawal symptoms. PAST MEDICAL HISTORY: As mentioned above significant for atrial fibrillation, history of DVT and PE for which he has been on Eliquis for more than 5 years. The patient notes that he has been taking his medication religiously every day; however, his significant other present in the room notes that the patient more than frequent forget to take his medication when he binge drinks. He also has history of EtOH abuse and retroperitoneal bleed back in 2016 that was treated with immobilization at [facility]. PAST SURGICAL HISTORY: Significant for: 1. Right total hip arthroplasty. 2. Retroperitoneal bleed immobilization done at [place], [place] back in 2016. CURRENT MEDICATIONS: His medications at home include: 1. Eliquis 5 mg p.o. b.i.d. 2. Aspirin 81 mg p.o. daily. 3. Lipitor 20 mg p.o. daily. 4. Vitamin B12 500 mcg p.o. daily. 5. Folic acid 1 mg p.o. daily. 6. Magnesium oxide 400 mg p.o. b.i.d. 7. Metoprolol 25 mg p.o. b.i.d. 8. [place]-3 acid 2 g p.o. b.i.d. 9. Zoloft 50 mg p.o. daily. 10. Vitamin B1 tablets 100 mg p.o. daily. ALLERGIES: He has no known drug allergies. FAMILY HISTORY: His father has history of coronary artery disease. Mother's history was noncontributory. 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 He has never smoked and he has known history of EtOH abuse and recently has been binge drinking for a week, approximately a pint or a liter of gin on a daily basis. He denies any illicit drug use. He is and his surrogate decision making is his sister, Jocelin. REVIEW OF SYSTEMS: See HPI. Otherwise, review of 14 systems is completed and otherwise all negative. PHYSICAL EXAMINATION GENERAL: He is a pleasant, cooperative 72-year-old gentleman, awake, alert and oriented, appears comfortable, and in no acute distress or discomfort at the time of admission. VITAL SIGNS: Revealed temperature of 99.1, blood pressure 174/103, pulse of 113 , and O2 sat of 99% on 2 L oxygen. HEENT: Head is normocephalic, atraumatic. Sclerae anicteric. PERRLA. EOMs intact. Oropharynx is dry. NECK: Supple. Trachea midline. No cervical adenopathy or thyromegaly. LUNGS: Clear to auscultation bilaterally. HEART: Regular rhythm with normal sinus tachycardia noted. There are no rubs, murmurs, or gallops noted. BACK: With normal curvature. No CVA tenderness. ABDOMEN: Round, soft, obese, nontender, and nondistended. There are no hernias , masses, or hepatosplenomegaly. There is no guarding, rigidity, or rebound tenderness. NEUROLOGIC: The patient exhibits some very minimal resting tremors on exam. Sensation is slightly decreased to his right lower extremity. The patient informed me that his primary care physician already set him up with an appointment with Dr. Moran to discuss vascular diagnostic imaging of his right leg. EXTREMITIES: Without cyanosis, clubbing, or edema. Right lower extremity appeared to be slightly pale compared to the left side. Pedal pulse was felt and is 1+. There are no ulcers noted. RECTAL: Exam deferred at this time. LABORATORY WORKUP: CBC revealed white count of 8900, hemoglobin 12.8, hematocrit 37, and platelets of 91. His coags with INR of 1.25. Chemistry panel with sodium of 132, potassium 3.9, chloride 100, CO2 21, BUN is 17, creatinine 1.15, glucose of 143. Magnesium 1.2 and total bilirubin 1.2. His blood gases showed hypoxia with pO2 of 57, pH 7.56, pCO2 27, and base excess of 3.0. ACCESSORY DIAGNOSTIC DATA: The patient had a chest x-ray that was essentially normal. His EKG with atrial fibrillation noted, irregular rate ranging between 85 and 110. IMPRESSION: A 72-year-old gentleman with past medical history significant for hypertension, hyperlipidemia, depression and chronic alcohol abuse, who presented to emergency room today with complaints of not feeling well as well as concern for alcohol withdrawal. The patient is exhibiting signs of early withdrawal and we were contacted to see the patient for hospitalist admission. PLAN AND RECOMMENDATIONS: 1. EtOH abuse and depression. At this point, the patient is showing signs of withdrawal. He is hypertensive, tachycardic and showed evidence of diaphoresis early; however, he felt better now with less shaking after administration of Ativan in the emergency room. The patient will be admitted under protocol for withdrawal symptoms. We will hydrate him since he exhibits signs of dehydration with elevated lactic acid and we will continue his thiamine and folic acid. 2. Depression. The patient exhibits no signs of harming self or others and we will continue his Zoloft. 3. Atrial fibrillation. The patient has a history of chronic atrial fibrillation and it is uncertain if he continues to take his Eliquis at home or not. He exhibited signs of hypoxia during his ED visit for which we will go ahead and order a CTA of the chest given his high risk status and history of DVT /PE in the past. 4. Hypoxia. Again, the patient is a high risk for pulmonary embolism given his history and the uncertainty of compliance with his medication as an outpatient. We will schedule him for a CTA chest to rule out any possibility of PE. 5. Deep veins thrombosis and history of PE. We will continue his Eliquis for the time being awaiting CTA findings. 6. Hypomagnesemia. We will replace his magnesium with IV runs and p.o. supplement. 7. Dehydration. The patient exhibits signs of dehydration with increasing lactic acid and we will hydrate him gently after he received boluses in the ED. 8. Fluids, electrolytes, and nutrition. The patient will have a regular diet. 9. DVT prophylaxis. Again, he is going to be on Eliquis and we will also use sequential stocking devices and ambulate as tolerated. 10. Code status. The patient is a full code. TIME SPENT: Time spent for admitting this patient was 60 minutes and greater than half the time was spent [id number] with the patient obtaining history and physical. CRISTÓBAL GILMAN ADDENDUM: DATE OF ADMISSION: 11/20/17 PRIMARY CARE PROVIDER: Dr. Rodriguez. This case was discussed and reviewed with CRISTÓBAL Gilman. Mr. Bethea is a 72-year-old male with a past medical history of AFib, DVT, PE , alcohol abuse, prior retroperitoneal bleed that presented to the emergency room with complaints of difficulty ambulating, nausea, and tremors. The patient had been sober for a month but went on a 10-day farah and quit 4 days ago and now is experiencing alcohol withdrawal. He was found to be tachycardic and hypertensive in the emergency room. His ABG also revealed hypoxia. The patient is going to be admitted for management of his alcohol withdrawal and he will also have a CTA of the chest to rule out PE as his compliance with Eliquis is questionable when he drinks. I discussed the plan of care and management with the admitting physician teacher's assistant. SANDRA Winters MD [id number]/CPS #: [id number]/CPS #: [id number] TIAN
[2017-11-20] MEDS: oxyCODONE/Acetamin 5/325 MG* TAB PO PRN ×2 (18:26→23:50)
[2017-11-20] MEDS: Magnesium Oxide TAB* 400 MG PO SCH (20:35)
[2017-11-20] MEDS: Apixaban* 5 MG TAB PO SCH (20:35)
[2017-11-20] MEDS: Metoprolol Succinate XL TAB* 25 MG PO SCH (20:35)
[2017-11-20] MEDS: Atorvastatin* 20 MG TAB PO SCH (20:35)
[2017-11-20] MEDS: Docusate CAP* 100 MG PO SCH (20:35)
[2017-11-20] MEDS: Acetaminophen TAB* 325 MG PO PRN (20:35)
[2017-11-20] MEDS: Zolpidem TAB* 5 MG PO SCH (21:50)
[2017-11-21] MEDS: Acetaminophen TAB* 325 MG PO PRN ×2 (00:37→05:55)
[2017-11-21] MEDS: LORazepam TAB(*) 1 MG PO SCH ×4 (01:56→05:55)
[2017-11-21] MEDS: oxyCODONE/Acetamin 5/325 MG* TAB PO PRN (03:50)
[2017-11-21 06:20] LABS: ABS Basophils 0 10^3/ul (0-0.2); ABS Eosinophils 0 10^3/ul (0-0.6); ABS Lymphocytes 0.9 10^3/ul (1.0-4.8); ABS Monocytes 0.7 10^3/ul (0-0.8); ABS Nucleated RBC 0 10^3/ul; Eosinophil % 0 % (0-6); Hematocrit 37 % (42-52); Hemoglobin 12.2 g/dl (14.0-18.0); Lymphocyte % 6.9 % (25-47); Mean Corpuscular HGB Conc 33 g/dl (31-36); Mean Corpuscular Hemoglobin 35 pg (27-31); Mean Corpuscular Volume 103 fL (80-94); Nucleated Red Blood Cells % 0.1; Platelet Count 64 10^3/ul (150-450); Red Blood Count 3.55 10^6/ul (4.0-5.4); Red Cell Distribution Width 15 % (10.5-15); White Blood Count 13.6 10^3/ul (3.5-10.8)
[2017-11-21 06:38] LABS: EGFR Non-African American 54.1 (>60)
[2017-11-21] MEDS ORDERED: Folic Acid TAB* 1 MG PO SCH ×2 (09:00)
[2017-11-21] MEDS ORDERED: Multivitamins/Minerals TAB PO SCH (09:00)
[2017-11-21] MEDS ORDERED: Thiamine TAB* 100 MG TAB PO SCH ×2 (09:00)
[2017-11-21] MEDS ORDERED: NS 0.9% 1000 ML* 1,000 ML IV ONE (09:49)
--- NOTE | 2017-11-21 09:57 | PN ---
Subjective Date of Service: 11/21/17 Interval History: Patient seen and examined. WA scores high overnight. Obtunded, not following commands. Sonorous respirations, on continuous pulse ox with oxymask. Remains tachycardic with what appears to be DAYNE vs benzo induced hypoventilation, BP stable. Instructed RN to hold ativan for now. Respiratory paged, will trial CPAP. Objective Active Medications: Acetaminophen (Tylenol Tab*) 650 mg PO Q4H PRN PRN Reason: FEVER/PAIN Last Admin: 11/21/17 05:55 Dose: 650 mg Al Hydrox/Mg Hydrox/Simethicone (Maalox Plus*) 30 ml PO Q6H PRN PRN Reason: INDIGESTION Apixaban (Eliquis*) 5 mg PO BID [facility] Last Admin: 11/20/17 20:35 Dose: 5 mg Aspirin (Aspirin 81 Mg Chew Tab*) 81 mg PO DAILY [facility] Atorvastatin Calcium (Lipitor*) 20 mg PO BEDTIME [facility] Last Admin: 11/20/17 20:35 Dose: 20 mg Cyanocobalamin (Vitamin B12 Tab*) 500 mcg PO DAILY [facility] Docusate Sodium (Colace Cap*) 100 mg PO BID [facility] Last Admin: 11/20/17 20:35 Dose: 100 mg Folic Acid (Folvite Tab*) 1 mg PO DAILY [facility] Lactated Ringer's (Lactated Ringers 1000 Ml Bag*) 1,000 mls @ 150 mls/hr IV PER RATE [facility] Last Admin: 11/21/17 07:38 Dose: 150 mls/hr Sodium Chloride (Ns 0.9% 1000 Ml*) 1,000 mls @ 0 mls/hr IV .BOLUS ONE PRN Reason: Wide Open Stop: 11/21/17 09:50 Lorazepam (Ativan Tab(*)) 2 mg PO Q12H [facility] PRN Reason: Taper Stop: 11/23/17 09:59 Last Admin: 11/21/17 05:55 Dose: 2 mg Lorazepam (Ativan Tab(*)) 0 - 6 mg PO .[facility] PROTOCOL [facility] PRN Reason: Protocol Last Admin: 11/21/17 05:54 Dose: 3 mg Magnesium Oxide (Magox 400 Tab*) 400 mg PO BID [facility] Last Admin: 11/20/17 20:35 Dose: 400 mg Metoprolol Succinate (Toprol Xl Tab*) 25 mg PO BID [facility] Last Admin: 11/20/17 20:35 Dose: 25 mg Multivitamins/Minerals (Theragran/Minerals Tab*) 1 tab PO DAILY [facility] Ondansetron HCl (Zofran Inj*) 4 mg IV Q4H PRN PRN Reason: NAUSEA/VOMITING Oxycodone/Acetaminophen (Percocet 5/325 Tab*) 1 tab PO Q4H PRN PRN Reason: Pain Last Admin: 11/21/17 03:50 Dose: 1 tab Sertraline HCl (Zoloft*) 50 mg PO DAILY [facility] Thiamine HCl (Vitamin B-1 Tab*) 100 mg PO DAILY [facility] Zolpidem Tartrate (Ambien Tab*) 5 mg PO BEDTIME [facility] Last Admin: 11/20/17 21:50 Dose: 5 mg Vital Signs - 8 hr 11/21/17 11/21/17 11/21/17 01:56 03:43 03:45 Temperature Pulse Rate 111 Respiratory 20 19 18 Rate Blood Pressure 148/80 (mmHg) O2 Sat by Pulse 96 Oximetry 11/21/17 11/21/17 11/21/17 03:48 03:50 04:33 Temperature Pulse Rate Respiratory 20 20 20 Rate Blood Pressure (mmHg) O2 Sat by Pulse Oximetry 11/21/17 11/21/17 11/21/17 05:42 05:48 05:54 Temperature Pulse Rate 106 Respiratory 16 18 20 Rate Blood Pressure 177/106 (mmHg) O2 Sat by Pulse 83 Oximetry 11/21/17 11/21/17 11/21/17 05:55 07:01 07:11 Temperature 101.3 F Pulse Rate 110 Respiratory 20 18 16 Rate Blood Pressure 122/87 (mmHg) O2 Sat by Pulse Oximetry 11/21/17 11/21/17 07:34 09:18 Temperature Pulse Rate 102 Respiratory 22 25 Rate Blood Pressure 123/78 (mmHg) O2 Sat by Pulse 94 Oximetry Oxygen Devices in Use Now: OxyMask Appearance: Obtunded, lethargic Eyes: No Scleral Icterus Ears/Nose/Mouth/Throat: - - extremely dry oral mucosa Neck: Trachea Midline Respiratory: - - course respirations, sonorous Cardiovascular: NL Sounds; No Murmurs; No JVD, - - tachycardia Extremities: No Edema, No Clubbing, Cyanosis Skin: No Rash or Ulcers Neurological: - - confused, not following commands Nutrition: - - keep NPO Result Diagrams: 11/21/17 16:00 11/21/17 16:00 Additional Lab and Data: Lab Results 11/20/17 11/20/17 11/20/17 Range/Units 11:37 11:40 11:40 WBC 8.9 (3.5-10.8) 10^3/ul RBC 3.66 L (4.0-5.4) 10^6/ul Hgb 12.8 L (14.0-18.0) g/dl Hct 37 L (42-52) % MCV 101 H (80-94) fL MCH 35 H (27-31) pg MCHC 35 (31-36) g/dl RDW 14 (10.5-15) % Plt Count 91 L D (150-450) 10^3/ul MPV 8.0 (7.4-10.4) um3 Neut % (Auto) 90.9 H (38-83) % Lymph % (Auto) 4.9 L (25-47) % Wallace % (Auto) 3.5 (0-7) % Eos % (Auto) 0.1 (0-6) % Baso % (Auto) 0.6 (0-2) % Absolute Neuts (auto) 8.1 H (1.5-7.7) 10^3/ul Absolute Lymphs (auto) 0.4 L (1.0-4.8) 10^3/ul Absolute Monos (auto) 0.3 (0-0.8) 10^3/ul Absolute Eos (auto) 0 (0-0.6) 10^3/ul Absolute Basos (auto) 0.1 (0-0.2) 10^3/ul Absolute Nucleated RBC 0 10^3/ul Nucleated RBC % 0 Hem Pathologist Commnt Pending INR (Anticoag Therapy) (0.77-1.02) ABG pH 7.56 H (7.35-7.45) ABG pCO2 27 L (35-45) mmHg ABG pO2 57 L* (80-100) mmHg ABG HCO3 27.1 (19-31) mmol/L ABG O2 Saturation 95.6 (95-98) % ABG Base Excess 3.0 H (-2.0-2.0) Sodium (139-145) mmol/L Potassium (3.5-5.0) mmol/L Chloride (101-111) mmol/L Carbon Dioxide (22-32) mmol/L Anion Gap (2-11) mmol/L BUN (6-24) mg/dL Creatinine (0.67-1.17) mg/dL Est GFR ( Amer) (>60) Est GFR (Non-Af Amer) (>60) BUN/Creatinine Ratio (8-20) Glucose (70-100) mg/dL Lactic Acid 1.6 (0.5-2.0) mmol/L Calcium (8.6-10.3) mg/dL Magnesium (1.9-2.7) mg/dL Total Bilirubin (0.2-1.0) mg/dL AST (13-39) U/L ALT (7-52) U/L Alkaline Phosphatase (34-104) U/L Total Protein (6.4-8.9) g/dL Albumin (3.2-5.2) g/dL Globulin (2-4) g/dL Albumin/Globulin Ratio (1-3) Vitamin B12 (180-914) pg/mL Folate (>3.99) ng/mL TSH (0.34-5.60) mcIU/mL Urine Color Urine Appearance Urine pH (5-9) Ur Specific [place] (1.010-1.030) Urine Protein (Negative) Urine Ketones (Negative) Urine Blood (Negative) Urine Nitrate (Negative) Urine Bilirubin (Negative) Urine Urobilinogen (Negative) Ur Leukocyte Esterase (Negative) Urine WBC (Auto) (Absent) Urine RBC (Auto) (Absent) Ur Squamous Epith Cells (Absent) Urine Bacteria (Absent) Urine Glucose (Negative) 11/20/17 11/20/17 11/20/17 Range/Units 11:40 11:40 11:50 WBC (3.5-10.8) 10^3/ul RBC (4.0-5.4) 10^6/ul Hgb (14.0-18.0) g/dl Hct (42-52) % MCV (80-94) fL MCH (27-31) pg MCHC (31-36) g/dl RDW (10.5-15) % Plt Count (150-450) 10^3/ul MPV (7.4-10.4) um3 Neut % (Auto) (38-83) % Lymph % (Auto) (25-47) % Wallace % (Auto) (0-7) % Eos % (Auto) (0-6) % Baso % (Auto) (0-2) % Absolute Neuts (auto) (1.5-7.7) 10^3/ul Absolute Lymphs (auto) (1.0-4.8) 10^3/ul Absolute Monos (auto) (0-0.8) 10^3/ul Absolute Eos (auto) (0-0.6) 10^3/ul Absolute Basos (auto) (0-0.2) 10^3/ul Absolute Nucleated RBC 10^3/ul Nucleated RBC % Hem Pathologist Commnt INR (Anticoag Therapy) 1.25 H (0.77-1.02) ABG pH (7.35-7.45) ABG pCO2 (35-45) mmHg ABG pO2 (80-100) mmHg ABG HCO3 (19-31) mmol/L ABG O2 Saturation (95-98) % ABG Base Excess (-2.0-2.0) Sodium 132 L D (139-145) mmol/L Potassium 3.9 (3.5-5.0) mmol/L Chloride 100 L (101-111) mmol/L Carbon Dioxide 21 L (22-32) mmol/L Anion Gap 11 (2-11) mmol/L BUN 17 (6-24) mg/dL Creatinine 1.15 (0.67-1.17) mg/dL Est GFR ( Amer) 80.9 (>60) Est GFR (Non-Af Amer) 62.9 (>60) BUN/Creatinine Ratio 14.8 (8-20) Glucose 143 H (70-100) mg/dL Lactic Acid (0.5-2.0) mmol/L Calcium 8.6 (8.6-10.3) mg/dL Magnesium 1.2 L (1.9-2.7) mg/dL Total Bilirubin 1.20 H (0.2-1.0) mg/dL AST 30 (13-39) U/L ALT 21 (7-52) U/L Alkaline Phosphatase 49 (34-104) U/L Total Protein 6.5 (6.4-8.9) g/dL Albumin 3.9 (3.2-5.2) g/dL Globulin 2.6 (2-4) g/dL Albumin/Globulin Ratio 1.5 (1-3) Vitamin B12 991 H (180-914) pg/mL Folate > 20.00 (>3.99) ng/mL TSH 2.73 (0.34-5.60) mcIU/mL Urine Color Yellow Urine Appearance Clear Urine pH 7.0 (5-9) Ur Specific [place] 1.013 (1.010-1.030) Urine Protein Negative (Negative) Urine Ketones Trace A (Negative) Urine Blood 1+ A (Negative) Urine Nitrate Negative (Negative) Urine Bilirubin Negative (Negative) Urine Urobilinogen Negative (Negative) Ur Leukocyte Esterase Negative (Negative) Urine WBC (Auto) Trace(0-5/hpf) (Absent) Urine RBC (Auto) Trace(0-2/hpf) (Absent) Ur Squamous Epith Cells Present A (Absent) Urine Bacteria 3+ A (Absent) Urine Glucose Negative (Negative) Diagnostic Imaging: Patient Name: HUMBERTO CAPPS Medical Record#: [id number] Ordering Physician: Eva AMBROCIO Acct.#: [id number] : 1945 Age: 72 Sex: M Location: [address] [place] [address] MEDICAL Exam Date: 11/20/17 1330 ADM Status: ADM IN Order Information: CTA CHEST Accession Number: [id number] CPT: 89608 Indication: Hypoxia, evaluate for pulmonary embolus. Contrast: Administered 83.2 ml of OMNIPAQUE 350 mg/ml CTA of the chest was performed after IV contrast demonstration. Coronal and sagittal reconstructed images were obtained. The pulmonary arterial tree is well opacified. There are no filling defects present to suggest pulmonary embolus. Bibasilar atelectasis is noted. No evidence of alveolar consolidation is noted. Aorta demonstrates no evidence of aortic dissection. Cardiomegaly is noted. The trachea and major bronchi appear patent. Bibasilar atelectasis is noted. The visualized abdominal organs are otherwise unremarkable. IMPRESSION: No evidence of pulmonary embolus is noted. No definite alveolar consolidation is noted although some minimal pleural thickening is noted. There is cardiomegaly without pericardial effusion noted. <Electronically signed by Margareth Mcclellan MD in OV> 11/20/17 1437 Dictated By: Margareth Mcclellan MD Dictated Date/Time: 11/20/17 1437 Transcribed Date/Time: 11/20/17 1429 Copy to: CC:Angelina Ramos MD; Eva AMBROCIO; Onur Rodriguez MD Imaging - [facility] Imaging - [facility] Imaging - [facility] [address] [place] [address] [address] [address] ph ([phone]) ph ([phone]) ph ([phone]) Assess/Plan/Problems-Billing Assessment: This is a 72 y/o male with hx of ETOH abuse with sobriety per patient report for 8 months that reports binge drinking since and stopped ETOH last Sunday, presents with acute alcohol withdrawal and hypoxia. - Patient Problems (1) Alcohol withdrawal Code(s): F10.239 - ALCOHOL DEPENDENCE WITH WITHDRAWAL, UNSPECIFIED SNOMED Code (s): 507125942 Comment: - In overt withdrawl with high WAM scores overnight, cannot take PO - Fluid bolus now for dehydration and tachycardia, BP stable - Continue supportive care (2) Hypoxia Code(s): R09.02 - HYPOXEMIA SNOMED Code(s): 013030446 Comment: - Blood gas with PO2 of 57% - Currently on oxymask with periods of apnea, maintaining O2 sats 87-97% with continuous pulse ox - Respiratory paged, will trial CPAP - If patient not able to protect his airway, may need ICU transfer, continue to monitor closely (3) Afib Code(s): I48.91 - UNSPECIFIED ATRIAL FIBRILLATION SNOMED Code(s): 18713096 Comment: - Irregular and tachycardic but no afib - Continue metoprolol XL and eliquis (4) History of pulmonary embolus (PE) Code(s): Z86.711 - PERSONAL HISTORY OF PULMONARY EMBOLISM SNOMED Code(s): 178095861 Comment: - CTA chest as above, no PE - Continue Eliquis - Remains hypoxic (5) Depression Code(s): F32.9 - MAJOR DEPRESSIVE DISORDER, SINGLE EPISODE, UNSPECIFIED SNOMED Code(s): 30394746 Comment: - Continue zoloft, may consider psych eval when medically stable (6) DVT prophylaxis Code(s): NTW3185 - SNOMED Code(s): 017345450 Comment: - On eliquis (7) Full code status Code(s): Z78.9 - OTHER SPECIFIED HEALTH STATUS SNOMED Code(s): 665373378 Status and Disposition: Remain inpatient. Guarded.
[2017-11-21] MEDS: Docusate CAP* 100 MG PO SCH ×2 (10:40→21:28)
[2017-11-21] MEDS: Magnesium Oxide TAB* 400 MG PO SCH ×2 (10:40→21:28)
[2017-11-21] MEDS: Folic Acid TAB* 1 MG PO SCH (10:40)
[2017-11-21] MEDS: Apixaban* 5 MG TAB PO SCH (10:41)
[2017-11-21] MEDS: Multivitamins/Minerals TAB PO SCH (10:41)
[2017-11-21] MEDS: Metoprolol Succinate XL TAB* 25 MG PO SCH ×2 (10:41→21:28)
[2017-11-21] MEDS: Thiamine TAB* 100 MG TAB PO SCH (10:41)
[2017-11-21] MEDS: Aspirin 81 mg CHEW TAB* 81 MG TAB.CHEW PO SCH (10:41)
[2017-11-21] MEDS: Sertraline* 50 MG TAB PO SCH (10:41)
[2017-11-21] MEDS: Cyanocobalamin TAB* 500 MCG PO SCH (10:41)
[2017-11-21 16:21] LABS: ABS Basophils 0 10^3/ul (0-0.2); ABS Eosinophils 0 10^3/ul (0-0.6); ABS Monocytes 0.6 10^3/ul (0-0.8); ABS Neutrophils 12.3 10^3/ul (1.5-7.7); ABS Nucleated RBC 0 10^3/ul; Eosinophil % 0 % (0-6); Hematocrit 36 % (42-52); Hemoglobin 12.2 g/dl (14.0-18.0); Lymphocyte % 7.2 % (25-47); Mean Corpuscular HGB Conc 34 g/dl (31-36); Mean Corpuscular Hemoglobin 35 pg (27-31); Mean Corpuscular Volume 104 fL (80-94); Mean Platelet Volume 8.2 um3 (7.4-10.4); Nucleated Red Blood Cells % 0; Platelet Count 62 10^3/ul (150-450); Red Blood Count 3.51 10^6/ul (4.0-5.4); Red Cell Distribution Width 15 % (10.5-15)
[2017-11-21 16:30] LABS: EGFR Non-African American 54.6 (>60)
--- NOTE | 2017-11-21 16:35 | RAD ---
INDICATION: Evaluate for infiltrate. COMPARISON: Comparison is made with prior study from November 20, 2017. TECHNIQUE: A portable view of the chest was obtained. FINDINGS: The heart is moderately enlarged and unchanged from the prior study. The lungs are underinflated. There are small bibasilar infiltrates. IMPRESSION: LOW LUNG VOLUMES, SMALL BIBASILAR INFILTRATES.
[2017-11-21] MEDS ORDERED: ZOSYN 3.375 GM x ONE DOSE over 30 miuntes IVPB ×2 (18:00)
[2017-11-21] MEDS ORDERED: Vancomycin(*) 1,000 MG in NS 0.9% 250 ML* 250 ML IVPB ONE (18:30)
--- NOTE | 2017-11-21 18:50 | CONSULT ---
Consult Consult: Consultation Note Critical Care Requesting Physician: Dr Igor Adams Reason for consult: respiratory distress, delirium Limitations in history/physical: delirium, resp distress Date of consult: 11/21/2017 HPI: 72y M pmhx of Afib on AC, DVT, PE, HLD, HTN, past alcohol abuse. Comes to ER 11/20 for complaints of nausea/vomiting, tremors, difficulty ambulating. He stated to them he was off alcohol and relapsed and started drinking again heavy for 1-2 weeks around and stopped on Sunday. He comes to ER for those complaints above. He was deemed to be in alcohol withdrawal, started on alcohol withdrawal protocol. Initial wbc of 9, plt 91, mild hypoxia with PO2 57. Overnight given Ativan PO 6mg, was still awake, restless. This morning he was given Ativan 1 mg PO. He was febrile 101.3 in AM and now increased wbc to 13. Sometime after that his mental status changed, more lethargic, seemed to have some hypoxia now and so oxygen was increased. Hospitalist on service saw patient and attempted to try NIV for hypoxia. Given his poor mental status he was upgraded to the ICU. He was lethargic but would be groggy, open eyes slightly and was holding his airway on aerosol mask on transfer. Sats upper 90s but seemed to be obstructing on inspiration like he was sleeping and had sleep apnea. No audible wheezing, BP and HR stable. Decision to obtain ABG demonstrating hypercapnea and hypoxia, so started on NIV. Repeat ABG with improvement in CO2 and O2. Blood pressure slowly decreasing, but responded to IVF bolus 500cc LR x2 and HR improved. Seems comfortable now but still has delirium, hard to arouse but spontaneous breaths and less distress, less acc muscle use or obstruction noted. ROS: limited due to mental status change and resp distress PMHx: Afib, DVT, PE, HLD, HTN, past alcohol abuse PSHx: Right hip replacement; h/o retroperitoneal bleed in 2016 Family History: CAD in father. Social History: Alcohol-relapsed and binge drinking for 1-2 weeks 1 bottle/day and stopped 4 days back, Smoking-none, Drug use-none Allergies: Allergies Allergy/AdvReac Type Severity Reaction Status Date / Time No Known Allergies Allergy Verified 11/17/17 13:32 Home Medications: Apixaban* [Eliquis*] 5 mg PO BID #60 tab 10/11/15 [Rx Confirmed 11/20/17] Aspirin 81 mg CHEW TAB* 81 mg PO DAILY #30 tab.chew 10/11/15 [Rx Confirmed 11/20] Cyanocobalamin TAB* [Vitamin B12 TAB*] 500 mcg PO DAILY #30 tab 10/11/15 [Rx Confirmed 11/20/17] Folic Acid TAB* [Folvite TAB*] 1 mg PO DAILY #30 tab 10/11/15 [Rx Confirmed ] Magnesium Oxide TAB* [MagOx 400 TAB*] 400 mg PO BID 12/15/15 [History Confirmed 11/20/17] Metoprolol Succinate XL TAB* [Toprol XL TAB*] 25 mg PO BID 12/15/15 [History Confirmed 11/20/17] Kzkrk-5-Bmhp Ethyl Esters (NF) [Lovaza (NF)] 2 gm PO BID 12/15/15 [History Confirmed 11/20/17] Sertraline* [Zoloft*] 50 mg PO DAILY 12/15/15 [History Confirmed 11/20/17] Thiamine TAB* [Vitamin B-1 TAB 100 MG*] 100 mg PO DAILY tab 02/12/16 [Rx Confirmed 11/20/17] Atorvastatin* [Lipitor*] 20 mg PO BEDTIME 11/20/17 [History Confirmed 11/20/17] Tele: Afib, rate controlled Vitals: tmax 101 Vital Signs Temp 99.5 F 11/21/17 16:05 Pulse 102 11/21/17 18:15 Resp 17 11/21/17 18:15 BP 155/111 11/21/17 18:15 Pulse Ox 91 11/21/17 18:15 Intake & Output 11/20/17 11/21/17 11/21/17 18:59 06:59 18:59 Intake Total 1999 2071 1548 Output Total 250 Balance 1999 1821 1548 Weight 238 lb 3.2 oz Intake: IV Fluids 1999 1831 1548 LR 1831 1548 Oral 240 Output: Urine 250 Other: Estimated Void Large Large # Bowel Movements 0 # Voids 0 1 O2/Vent: NIV 16/8 40%, RR 18, TV 800; sat 95% Infusions: LR 100cc/hr Current Medications: Acetaminophen (Tylenol Tab*) 650 mg PO Q4H PRN PRN Reason: FEVER/PAIN Last Admin: 11/21/17 05:55 Dose: 650 mg Al Hydrox/Mg Hydrox/Simethicone (Maalox Plus*) 30 ml PO Q6H PRN PRN Reason: INDIGESTION Apixaban (Eliquis*) 5 mg PO BID [facility] Last Admin: 11/21/17 10:41 Dose: Not Given Aspirin (Aspirin 81 Mg Chew Tab*) 81 mg PO DAILY [facility] Last Admin: 11/21/17 10:41 Dose: Not Given Atorvastatin Calcium (Lipitor*) 20 mg PO BEDTIME [facility] Last Admin: 11/20/17 20:35 Dose: 20 mg Cyanocobalamin (Vitamin B12 Tab*) 500 mcg PO DAILY [facility] Last Admin: 11/21/17 10:41 Dose: Not Given Docusate Sodium (Colace Cap*) 100 mg PO BID [facility] Last Admin: 11/21/17 10:40 Dose: Not Given Folic Acid (Folvite Tab*) 1 mg PO DAILY [facility] Last Admin: 11/21/17 10:40 Dose: Not Given Vancomycin HCl 1,000 mg/ (Sodium Chloride) 250 mls @ 166.667 mls/hr IVPB ONCE ONE Stop: 11/21/17 19:59 Piperacillin Sod/Tazobactam (Sod 3.375 gm/ Sodium Chloride) 100 mls @ 25 mls/ hr IVPB Q8H [facility] Lactated Ringer's (Lactated Ringers 1000 Ml Bag*) 1,000 mls @ 100 mls/hr IV PER RATE [facility] Lorazepam (Ativan Tab(*)) 0 - 6 mg PO .PER [facility] PROTOCOL [facility] PRN Reason: Protocol Last Admin: 11/21/17 05:54 Dose: 3 mg Magnesium Oxide (Magox 400 Tab*) 400 mg PO BID [facility] Last Admin: 11/21/17 10:40 Dose: Not Given Metoprolol Succinate (Toprol Xl Tab*) 25 mg PO BID [facility] Last Admin: 11/21/17 10:41 Dose: Not Given Multivitamins/Minerals (Theragran/Minerals Tab*) 1 tab PO DAILY [facility] Last Admin: 11/21/17 10:41 Dose: Not Given Ondansetron HCl (Zofran Inj*) 4 mg IV Q4H PRN PRN Reason: NAUSEA/VOMITING Oxycodone/Acetaminophen (Percocet 5/325 Tab*) 1 tab PO Q4H PRN PRN Reason: Pain Last Admin: 11/21/17 03:50 Dose: 1 tab Sertraline HCl (Zoloft*) 50 mg PO DAILY [facility] Last Admin: 11/21/17 10:41 Dose: Not Given Thiamine HCl (Vitamin B-1 Tab*) 100 mg PO DAILY [facility] Last Admin: 11/21/17 10:41 Dose: Not Given Zolpidem Tartrate (Ambien Tab*) 5 mg PO BEDTIME [facility] Last Admin: 11/20/17 21:50 Dose: 5 mg Physical Exam: General: lethargic, difficult to arouse Head: normocephalic, atraumatic HEENT: no pallor, no icterus, moist mucous membranes Neck: soft, supple, no jvd, no stridor CVS: irregular, normal rate, no murmur Resp: bilateral air entry, diminished earlier, no rhales, no wheeze, no rhonchi , no acc muscle use now Abdomen: soft, nontender, nondistended, bowel sounds present Ext: pulses+, warm, no edema Skin: intact Neuro: lethargic, arousable with tactile stimuli, opens eyes but doesnt follow too much, mummbling words, moving all ext spontaneously Labs: Laboratory Results - last 24 hr 11/21/17 11/21/17 11/21/17 05:39 05:39 15:45 WBC 13.6 H RBC 3.55 L Hgb 12.2 L Hct 37 L MCV 103 H MCH 35 H MCHC 33 RDW 15 Plt Count 64 L MPV 8.0 Neut % (Auto) 87.8 H Lymph % (Auto) 6.9 L [place] % (Auto) 4.9 Eos % (Auto) 0 Baso % (Auto) 0.4 Absolute Neuts (auto) 12.0 H Absolute Lymphs (auto) 0.9 L Absolute Monos (auto) 0.7 Absolute Eos (auto) 0 Absolute Basos (auto) 0 Absolute Nucleated RBC 0 Nucleated RBC % 0.1 Patient Temperature Not Reportable ABG pH 7.27 L ABG pH (Temp Correct) Not Reportable ABG pCO2 55 H ABG pCO2 (Temp Corrct Not Reportable ABG pO2 99 ABG pO2 (Temp Correct Not Reportable ABG HCO3 23.0 ABG O2 Saturation 99.1 H ABG Base Excess -2.4 L Respiration Rate Not Reportable Ventilator Type Not Reportable Vent Mode Not Reportable FiO2 100 Inspiratory Time Not Reportable PEEP Not Reportable Pressure Support Not Reportable Pressure Control Not Reportable EPAP Not Reportable IPAP Not Reportable BiPAP Not Reportable Sodium 130 L Potassium 4.6 Chloride 97 L Carbon Dioxide 25 Anion Gap 8 BUN 13 Creatinine 1.31 H Est GFR ( Amer) 69.6 Est GFR (Non-Af Amer) 54.1 BUN/Creatinine Ratio 9.9 Glucose 105 H Lactic Acid Calcium 8.6 Total Bilirubin 1.20 H AST 24 ALT 16 Alkaline Phosphatase 35 Total Protein 6.4 Albumin 3.8 Globulin 2.6 Albumin/Globulin Ratio 1.5 11/21/17 11/21/17 11/21/17 16:00 16:00 16:00 WBC 14.0 H RBC 3.51 L Hgb 12.2 L Hct 36 L MCV 104 H MCH 35 H MCHC 34 RDW 15 Plt Count 62 L MPV 8.2 Neut % (Auto) 88.1 H Lymph % (Auto) 7.2 L [place] % (Auto) 4.5 Eos % (Auto) 0 Baso % (Auto) 0.2 Absolute Neuts (auto) 12.3 H Absolute Lymphs (auto) 1.0 Absolute Monos (auto) 0.6 Absolute Eos (auto) 0 Absolute Basos (auto) 0 Absolute Nucleated RBC 0 Nucleated RBC % 0 Patient Temperature ABG pH ABG pH (Temp Correct) ABG pCO2 ABG pCO2 (Temp Corrct ABG pO2 ABG pO2 (Temp Correct ABG HCO3 ABG O2 Saturation ABG Base Excess Respiration Rate Ventilator Type Vent Mode FiO2 Inspiratory Time PEEP Pressure Support Pressure Control EPAP IPAP BiPAP Sodium 131 L Potassium 4.1 Chloride 97 L Carbon Dioxide 25 Anion Gap 9 BUN 16 Creatinine 1.30 H Est GFR ( Amer) 70.2 Est GFR (Non-Af Amer) 54.6 BUN/Creatinine Ratio 12.3 Glucose 99 Lactic Acid 2.0 Calcium 8.4 L Total Bilirubin 1.50 H AST 23 ALT 16 Alkaline Phosphatase 37 Total Protein 6.5 Albumin 3.8 Globulin 2.7 Albumin/Globulin Ratio 1.4 11/21/17 16:58 WBC RBC Hgb Hct MCV MCH MCHC RDW Plt Count MPV Neut % (Auto) Lymph % (Auto) [place] % (Auto) Eos % (Auto) Baso % (Auto) Absolute Neuts (auto) Absolute Lymphs (auto) Absolute Monos (auto) Absolute Eos (auto) Absolute Basos (auto) Absolute Nucleated RBC Nucleated RBC % Patient Temperature Not Reportable ABG pH 7.41 ABG pH (Temp Correct) Not Reportable ABG pCO2 39 ABG pCO2 (Temp Corrct Not Reportable ABG pO2 113 H ABG pO2 (Temp Correct Not Reportable ABG HCO3 25.0 ABG O2 Saturation 99.6 H ABG Base Excess 0.1 Respiration Rate 14 Ventilator Type Not Reportable Vent Mode Not Reportable FiO2 40 Inspiratory Time Not Reportable PEEP Not Reportable Pressure Support Not Reportable Pressure Control Not Reportable EPAP 8 IPAP 16 BiPAP Not Reportable Sodium Potassium Chloride Carbon Dioxide Anion Gap BUN Creatinine Est GFR ( Amer) Est GFR (Non-Af Amer) BUN/Creatinine Ratio Glucose Lactic Acid Calcium Total Bilirubin AST ALT Alkaline Phosphatase Total Protein Albumin Globulin Albumin/Globulin Ratio Imaging: CT brain 11/20 - no acute findings CTA chest 11/20 - no PE, no acute infiltrates CXR 11/21 - low volumes, basilar infiltrates Assessment: 72y M pmhx of Afib on AC, DVT, PE, HLD, HTN, past alcohol abuse. Comes to ER 11/20 for complaints of nausea/vomiting, tremors, difficulty ambulating. He stated to them he was off alcohol and relapsed and started drinking again heavy for 1-[address] [facility] and stopped on Sunday. He comes to ER for those complaints above. He was deemed to be in alcohol withdrawal, started on alcohol withdrawal protocol. Initial wbc of 9, plt 91, mild hypoxia with PO2 57. Overnight given Ativan PO 6mg, was still awake, restless. This morning he was given Ativan 1 mg PO. He was febrile 101.3 in AM and now increased wbc to 13. Sometime after that his mental status changed, more lethargic, seemed to have some hypoxia now and so oxygen was increased. Hospitalist on service saw patient and attempted to try NIV for hypoxia. Given his poor mental status he was upgraded to the ICU. Here was hypercapneic, hypoxic, hypotension developing with poor mental status. -Acute Hypercapneic and Hypoxic Respiratory Failure -Encephelopathy, suspect metabolic/toxic origin -Severe Sepsis -Alcohol withdrawal -thrombocytopenia Afib Plan: Neuro- poor responsiveness but able to hold airway. arousable but poor. unable to follow commands. component of hypercapnea, likely underlying sepsis given fevers. will obtain CT head if stable to move. neurochecks, fall prec, asp prec. no further bdz or sedatives now. CVS- hypotension, responded to LR bolus 500cc x2. cont LR 100cc/hour. Afib, rate controlled. IV abx for suspected sepsis, unclear source. Hold antihypertensives for now. Cont eliquis once able to swallow. Check LA level in AM. Resp- hypercapneic and hypoxic; improved with NIV now. Last ABG reviewed. CXR low volume but no large consolidations, could be atelectasis at base. IV abx for broad coverage for aspiration also. Currently able to hold airway and has good volumes, close monitoring and if any sign of distress or if mental status does not improve or worsen, then will have to be intubated. No wheezing, no steroids indicated. Bronchodilators q4h prn. ID- febrile 101.3, wbc 14. Blood cultures sent. U/A abnormal 11/20 but growth of strept B. Recultured blood again. IV zosyn/vanco (day#1) empiric coverage. GI- NPO. aspiration prec. MVI/folate/thiamine once able to take PO. Renal- MERCEDEZ noted from admission, rise in Cr. K okay, no acidosis. LA 2.0. cont LR infusion. little will be needed. Heme- hg okay, mild anemia. thrombocytopenia, plt 90-61. no bleeding noted. drug induced? alcohol induced? Will need to hold eliquis till plt recover. Endo- fingersticks as needed. Musculsk- bedrest Wounds- none Nutrition- NPO DVT prophylaxis: SCDs GI prophylaxis: - Central Line: - Arterial Line: - Little Cathetor: - Disposition: ICU Code Status: full code Total Critical Care time is 60 minutes, excluding procedures/teaching Addison Quick MD [employer] Machine [employer] (Electronically Signed)
[2017-11-21] MEDS ORDERED: Albuterol 2.5 MG/3 ML NEB.SOL* (0.083%) INH PRN (19:04)
[2017-11-21] MEDS ORDERED: Zosyn per Pharmacy* NOTE FOLLOW UP PRN (20:23)
[2017-11-21] MEDS: Atorvastatin* 20 MG TAB PO SCH (21:28)
[2017-11-21] MEDS: Zolpidem TAB* 5 MG PO SCH (21:28)
[2017-11-21] MEDS ORDERED: Piperacillin/Tazobac ADVAN(*) 3.375 GM in NS 0.9% 100 ML* 100 ML IVPB SCH (22:30)
[2017-11-22] MEDS ORDERED: Piperacillin/Tazobactam 13.5 GM IV 24 hour continuous infusion IVPB SCH ×2
[2017-11-22] MEDS ORDERED: ZOSYN 3.375 GM x ONE DOSE over 30 miuntes IVPB ×2 (05:45)
[2017-11-22 05:59] LABS: Hematocrit 33 % (42-52); Hemoglobin 11.6 g/dl (14.0-18.0); Mean Corpuscular HGB Conc 35 g/dl (31-36); Mean Corpuscular Hemoglobin 36 pg (27-31); Mean Corpuscular Volume 102 fL (80-94); Mean Platelet Volume 8.6 um3 (7.4-10.4); Platelet Count 56 10^3/ul (150-450); Red Blood Count 3.23 10^6/ul (4.0-5.4); Red Cell Distribution Width 15 % (10.5-15); White Blood Count 10.2 10^3/ul (3.5-10.8)
[2017-11-22 06:09] LABS: EGFR Non-African American 59.3 (>60)
[2017-11-22] MEDS: Piperacillin/Tazobactam 13.5 GM IV 24 hour continuous infusion IVPB SCH ×2 (09:26)
[2017-11-22] MEDS: Thiamine TAB* 100 MG TAB PO SCH (10:57)
[2017-11-22] MEDS: Cyanocobalamin TAB* 500 MCG PO SCH (10:57)
[2017-11-22] MEDS: Multivitamins/Minerals TAB PO SCH (10:57)
[2017-11-22] MEDS: Metoprolol Succinate XL TAB* 25 MG PO SCH ×2 (10:57→21:11)
[2017-11-22] MEDS: Docusate CAP* 100 MG PO SCH ×2 (10:57→21:11)
[2017-11-22] MEDS: Aspirin 81 mg CHEW TAB* 81 MG TAB.CHEW PO SCH (10:57)
[2017-11-22] MEDS: Magnesium Oxide TAB* 400 MG PO SCH ×2 (10:57→21:11)
[2017-11-22] MEDS: Folic Acid TAB* 1 MG PO SCH (10:57)
[2017-11-22] MEDS: Sertraline* 50 MG TAB PO SCH (10:57)
[2017-11-22] MEDS ORDERED: Vancomycin(*) 1,000 MG in NS 0.9% 250 ML* 250 ML IVPB ONE (11:37)
--- NOTE | 2017-11-22 11:37 | PN ---
Progress Note - Progress Note Date of Service: 11/22/17 Note: Progress Note Critical Care 24 hour events: -on NIV all night, this morning more alert and very easily arousable and able to speak more -ABG improved, ventilation better -BP stable overnight on IVF hydration, mild tachy at time this morning -febrile 101 this morning again -switched to aerosol mask Tele: Afib Vitals: tmax 101 Vital Signs Temp 101.1 F 11/22/17 08:00 Pulse 101 11/22/17 11:00 Resp 23 11/22/17 11:00 BP 121/78 11/22/17 11:00 Pulse Ox 100 11/22/17 11:00 Intake & Output 11/21/17 11/22/17 11/22/17 18:59 06:59 18:59 Intake Total 1548 2177 440 Balance 1548 2177 440 Weight 238 lb 3.2 oz Intake: IV Fluids 1548 2127 ABX - VANCOMYCIN 270 ABX - ZOSYN 112 LR 1548 1566 NS (0.9%) 179 Oral 50 440 Other: Estimated Void Large Medium # Bowel Movements 0 # Voids 1 1 O2/Vent: aerosol mask 35% Infusions: LR 100cc/hr Current Medications Acetaminophen (Tylenol Tab*) 650 mg PO Q4H PRN PRN Reason: FEVER/PAIN Last Admin: 11/21/17 05:55 Dose: 650 mg Al Hydrox/Mg Hydrox/Simethicone (Maalox Plus*) 30 ml PO Q6H PRN PRN Reason: INDIGESTION Albuterol (Ventolin 2.5 Mg/3 Ml Neb.Terrie*) 2.5 mg INH Q4H PRN PRN Reason: SOB/WHEEZING Aspirin (Aspirin 81 Mg Chew Tab*) 81 mg PO DAILY [facility] Last Admin: 11/22/17 10:57 Dose: 81 mg Atorvastatin Calcium (Lipitor*) 20 mg PO BEDTIME [facility] Last Admin: 11/21/17 21:28 Dose: Not Given Cyanocobalamin (Vitamin B12 Tab*) 500 mcg PO DAILY [facility] Last Admin: 11/22/17 10:57 Dose: 500 mcg Docusate Sodium (Colace Cap*) 100 mg PO BID [facility] Last Admin: 11/22/17 10:57 Dose: 100 mg Folic Acid (Folvite Tab*) 1 mg PO DAILY [facility] Last Admin: 11/22/17 10:57 Dose: 1 mg Lactated Ringer's (Lactated Ringers 1000 Ml Bag*) 1,000 mls @ 100 mls/hr IV PER RATE [facility] Last Admin: 11/21/17 19:00 Dose: 100 mls/hr Piperacillin Sod/Tazobactam (Sod 13.5 gm/ Sodium Chloride) 500 mls @ 20.833 mls /hr IVPB Q24H [facility] Last Admin: 11/22/17 09:26 Dose: 20.833 mls/hr Lorazepam (Ativan Tab(*)) 0 - 6 mg PO .PER [facility] PROTOCOL [facility] PRN Reason: Protocol Last Admin: 11/21/17 05:54 Dose: 3 mg Magnesium Oxide (Magox 400 Tab*) 400 mg PO BID [facility] Last Admin: 11/22/17 10:57 Dose: 400 mg Metoprolol Succinate (Toprol Xl Tab*) 25 mg PO BID [facility] Last Admin: 11/22/17 10:57 Dose: 25 mg Multivitamins/Minerals (Theragran/Minerals Tab*) 1 tab PO DAILY [facility] Last Admin: 11/22/17 10:57 Dose: 1 tab Ondansetron HCl (Zofran Inj*) 4 mg IV Q4H PRN PRN Reason: NAUSEA/VOMITING Oxycodone/Acetaminophen (Percocet 5/325 Tab*) 1 tab PO Q4H PRN PRN Reason: Pain Last Admin: 11/21/17 03:50 Dose: 1 tab Pharmacy Consult (Zosyn Per Pharmacy*) 1 note FOLLOW UP . PRN PRN Reason: PER PROTOCOL Sertraline HCl (Zoloft*) 50 mg PO DAILY [facility] Last Admin: 11/22/17 10:57 Dose: 50 mg Thiamine HCl (Vitamin B-1 Tab*) 100 mg PO DAILY [facility] Last Admin: 11/22/17 10:57 Dose: 100 mg Zolpidem Tartrate (Ambien Tab*) 5 mg PO BEDTIME [facility] Last Admin: 11/21/17 21:28 Dose: Not Given Physical Exam: General: less lethargic, easily arousable, sleepy though; less resp distress but snoring on aerosol mask Head: normocephalic, atraumatic HEENT: no pallor, no icterus, moist mucous membranes Neck: soft, supple, no jvd, no stridor CVS: irregular, normal rate, no murmur Resp: bilateral air entry, diminished bilaterally, no rhales, no wheeze, no rhonchi, no acc muscle use now Abdomen: soft, nontender, nondistended, bowel sounds present Ext: pulses+, warm, no edema Skin: intact Neuro: sleepy but more easily arousable, able to follow commands, speaks, moves all ext, oriented x2 Labs: Laboratory Results - last 24 hr 11/21/17 11/21/17 11/21/17 15:45 16:00 16:00 WBC 14.0 H RBC 3.51 L Hgb 12.2 L Hct 36 L MCV 104 H MCH 35 H MCHC 34 RDW 15 Plt Count 62 L MPV 8.2 Neut % (Auto) 88.1 H Lymph % (Auto) 7.2 L Lamb % (Auto) 4.5 Eos % (Auto) 0 Baso % (Auto) 0.2 Absolute Neuts (auto) 12.3 H Absolute Lymphs (auto) 1.0 Absolute Monos (auto) 0.6 Absolute Eos (auto) 0 Absolute Basos (auto) 0 Absolute Nucleated RBC 0 Nucleated RBC % 0 Patient Temperature Not Reportable ABG pH 7.27 L ABG pH (Temp Correct) Not Reportable ABG pCO2 55 H ABG pCO2 (Temp Corrct Not Reportable ABG pO2 99 ABG pO2 (Temp Correct Not Reportable ABG HCO3 23.0 ABG O2 Saturation 99.1 H ABG Base Excess -2.4 L Respiration Rate Not Reportable O2 Delivery Device Ventilator Type Not Reportable Vent Mode Not Reportable FiO2 100 Inspiratory Time Not Reportable PEEP Not Reportable Pressure Support Not Reportable Pressure Control Not Reportable EPAP Not Reportable IPAP Not Reportable BiPAP Not Reportable Sodium 131 L Potassium 4.1 Chloride 97 L Carbon Dioxide 25 Anion Gap 9 BUN 16 Creatinine 1.30 H Est GFR ( Amer) 70.2 Est GFR (Non-Af Amer) 54.6 BUN/Creatinine Ratio 12.3 Glucose 99 Lactic Acid Calcium 8.4 L Total Bilirubin 1.50 H AST 23 ALT 16 Alkaline Phosphatase 37 Total Protein 6.5 Albumin 3.8 Globulin 2.7 Albumin/Globulin Ratio 1.4 11/21/17 11/21/17 11/22/17 16:00 16:58 05:32 WBC RBC Hgb Hct MCV MCH MCHC RDW Plt Count MPV Neut % (Auto) Lymph % (Auto) Lamb % (Auto) Eos % (Auto) Baso % (Auto) Absolute Neuts (auto) Absolute Lymphs (auto) Absolute Monos (auto) Absolute Eos (auto) Absolute Basos (auto) Absolute Nucleated RBC Nucleated RBC % Patient Temperature Not Reportable ABG pH 7.41 ABG pH (Temp Correct) Not Reportable ABG pCO2 39 ABG pCO2 (Temp Corrct Not Reportable ABG pO2 113 H ABG pO2 (Temp Correct Not Reportable ABG HCO3 25.0 ABG O2 Saturation 99.6 H ABG Base Excess 0.1 Respiration Rate 14 O2 Delivery Device Ventilator Type Not Reportable Vent Mode Not Reportable FiO2 40 Inspiratory Time Not Reportable PEEP Not Reportable Pressure Support Not Reportable Pressure Control Not Reportable EPAP 8 IPAP 16 BiPAP Not Reportable Sodium 131 L Potassium 3.9 Chloride 99 L Carbon Dioxide 22 Anion Gap 10 BUN 17 Creatinine 1.21 H Est GFR ( Amer) 76.2 Est GFR (Non-Af Amer) 59.3 BUN/Creatinine Ratio 14.0 Glucose 97 Lactic Acid 2.0 Calcium 8.2 L Total Bilirubin AST ALT Alkaline Phosphatase Total Protein Albumin Globulin Albumin/Globulin Ratio 11/22/17 11/22/17 11/22/17 05:32 05:32 06:00 WBC 10.2 RBC 3.23 L Hgb 11.6 L Hct 33 L MCV 102 H MCH 36 H MCHC 35 RDW 15 Plt Count 56 L MPV 8.6 Neut % (Auto) Lymph % (Auto) Lamb % (Auto) Eos % (Auto) Baso % (Auto) Absolute Neuts (auto) Absolute Lymphs (auto) Absolute Monos (auto) Absolute Eos (auto) Absolute Basos (auto) Absolute Nucleated RBC Nucleated RBC % Patient Temperature Not Reportable ABG pH 7.39 ABG pH (Temp Correct) Not Reportable ABG pCO2 38 ABG pCO2 (Temp Corrct Not Reportable ABG pO2 87 ABG pO2 (Temp Correct Not Reportable ABG HCO3 23.6 ABG O2 Saturation 98.3 H ABG Base Excess -1.6 Respiration Rate 14 O2 Delivery Device bipap Ventilator Type Not Reportable Vent Mode s/t FiO2 30 Inspiratory Time Not Reportable PEEP Not Reportable Pressure Support Not Reportable Pressure Control Not Reportable EPAP 8 IPAP 16 BiPAP Not Reportable Sodium Potassium Chloride Carbon Dioxide Anion Gap BUN Creatinine Est GFR ( Amer) Est GFR (Non-Af Amer) BUN/Creatinine Ratio Glucose Lactic Acid 1.0 Calcium Total Bilirubin AST ALT Alkaline Phosphatase Total Protein Albumin Globulin Albumin/Globulin Ratio Imaging: CT brain 11/20 - no acute findings CTA chest 11/20 - no PE, no acute infiltrates CXR 11/21 - low volumes, basilar infiltrates Assessment: 72y M pmhx of Afib on AC, DVT, PE, HLD, HTN, past alcohol abuse. Comes to ER 11/20 for complaints of nausea/vomiting, tremors, difficulty ambulating. He stated to them he was off alcohol and relapsed and started drinking again heavy for 1-2 weeks around and stopped on Sunday. He comes to ER for those complaints above. He was deemed to be in alcohol withdrawal, started on alcohol withdrawal protocol. Initial wbc of 9, plt 91, mild hypoxia with PO2 57. Overnight given Ativan PO 6mg, was still awake, restless. This morning he was given Ativan 1 mg PO. He was febrile 101.3 in AM and now increased wbc to 13. Sometime after that his mental status changed, more lethargic, seemed to have some hypoxia now and so oxygen was increased. Hospitalist on service saw patient and attempted to try NIV for hypoxia. Given his poor mental status he was upgraded to the ICU. Here was hypercapneic, hypoxic, hypotension developing with poor mental status. -Acute Hypercapneic and Hypoxic Respiratory Failure -Encephelopathy, metabolic/toxic origin -Severe Sepsis -Gram positive bacteremia -Strept Group B UTI ? -Alcohol withdrawal, not active at this time. -thrombocytopenia Afib Plan: Neuro- mental status better today but still sleepy at times but more alert and arousable. suspect metabolic/toxic component to encephelopathy. does not appear to be hallucinating or agitated, no active withdrawal state. CVS- No further hypotension, BP stable, on LR 100cc/hour. Afib, rate controlled , cont metoprolol po. IV abx; bacteremia+, UTI+. Hold eliquis till plt recover. Resp- HYpercapnea/hypoxia better; trial off NIV, on aerosol mask 35%, but does desaturate if it comes off. CXR with low volumes. Currently able to hold airway and has good volumes. No wheezing, no steroids indicated. Bronchodilators q4h prn. Will keep NIV/CPAP at night time, given snoring when he sleeps and it is absent when awake and talking. ID- febrile 101.3, wbc 10. BLood culture gram+. Urine cx group B strept+. Cont Cefepime/Vanco. IV zosyn/vanco (day#2). GI- NPO until more awake. aspiration prec. MVI/folate/thiamine once able to take PO. Renal- MERCEDEZ noted from admission, rise in Cr. K okay, no acidosis. LA 2.0. cont LR infusion. little will be needed. Heme- hg okay, mild anemia. thrombocytopenia, plt 50s. no bleeding noted. drug induced? alcohol induced? Will need to hold eliquis till plt recover. Endo- fingersticks as needed. Musculsk- bedrest Wounds- none Nutrition- NPO DVT prophylaxis: SCDs GI prophylaxis: - Central Line: - Arterial Line: - Little Cathetor: - Disposition: ICU Code Status: full code Total Critical Care time is 45 minutes, excluding procedures/teaching Addison Quick MD Administrative Secretary (Electronically Signed)
[2017-11-22] MEDS ORDERED: Vancomycin per Pharmacy* NOTE FOLLOW UP SCH (12:00)
--- NOTE | 2017-11-22 12:24 | PN ---
Subjective Date of Service: 11/22/17 Interval History: Patient seen and examined. More alert this AM. Was on BiPap all night and then transitioned to Salter this AM. Appears to be more awake, has been febrile since admission. CXR with infiltrates, urine with one bottle of group B strep, unclear if contaminant. Patient gave me permission to talk with Makenna, his sig other regarding his condition. Denies headache, pain or chest pain. Patient states he doesn't remember the last 24 hours and was unaware he is in ICU. Dr. Quick/Manufacturing Automation Engineer remains on consult. Objective Active Medications: Acetaminophen (Tylenol Tab*) 650 mg PO Q4H PRN PRN Reason: FEVER/PAIN Last Admin: 11/21/17 05:55 Dose: 650 mg Al Hydrox/Mg Hydrox/Simethicone (Maalox Plus*) 30 ml PO Q6H PRN PRN Reason: INDIGESTION Albuterol (Ventolin 2.5 Mg/3 Ml Neb.Terrie*) 2.5 mg INH Q4H PRN PRN Reason: SOB/WHEEZING Aspirin (Aspirin 81 Mg Chew Tab*) 81 mg PO DAILY [facility] Last Admin: 11/22/17 10:57 Dose: 81 mg Atorvastatin Calcium (Lipitor*) 20 mg PO BEDTIME [facility] Last Admin: 11/21/17 21:28 Dose: Not Given Cyanocobalamin (Vitamin B12 Tab*) 500 mcg PO DAILY [facility] Last Admin: 11/22/17 10:57 Dose: 500 mcg Docusate Sodium (Colace Cap*) 100 mg PO BID [facility] Last Admin: 11/22/17 10:57 Dose: 100 mg Folic Acid (Folvite Tab*) 1 mg PO DAILY [facility] Last Admin: 11/22/17 10:57 Dose: 1 mg Piperacillin Sod/Tazobactam (Sod 13.5 gm/ Sodium Chloride) 500 mls @ 20.833 mls /hr IVPB Q24H [facility] Last Admin: 11/22/17 09:26 Dose: 20.833 mls/hr Vancomycin HCl 1,000 mg/ (Sodium Chloride) 250 mls @ 166.667 mls/hr IVPB ONCE ONE Stop: 11/22/17 13:06 Lactated Ringer's (Lactated Ringers 1000 Ml Bag*) 1,000 mls @ 75 mls/hr IV PER RATE [facility] Magnesium Oxide (Magox 400 Tab*) 400 mg PO BID [facility] Last Admin: 11/22/17 10:57 Dose: 400 mg Metoprolol Succinate (Toprol Xl Tab*) 25 mg PO BID [facility] Last Admin: 11/22/17 10:57 Dose: 25 mg Multivitamins/Minerals (Theragran/Minerals Tab*) 1 tab PO DAILY [facility] Last Admin: 11/22/17 10:57 Dose: 1 tab Ondansetron HCl (Zofran Inj*) 4 mg IV Q4H PRN PRN Reason: NAUSEA/VOMITING Oxycodone/Acetaminophen (Percocet 5/325 Tab*) 1 tab PO Q4H PRN PRN Reason: Pain Last Admin: 11/21/17 03:50 Dose: 1 tab Pharmacy Consult (Zosyn Per Pharmacy*) 1 note FOLLOW UP . PRN PRN Reason: PER PROTOCOL Pharmacy Consult (Vancomycin Per Pharmacy*) 1 note FOLLOW UP .VANC PER PHARMACY [facility] Sertraline HCl (Zoloft*) 50 mg PO DAILY [facility] Last Admin: 11/22/17 10:57 Dose: 50 mg Thiamine HCl (Vitamin B-1 Tab*) 100 mg PO DAILY [facility] Last Admin: 11/22/17 10:57 Dose: 100 mg Zolpidem Tartrate (Ambien Tab*) 5 mg PO BEDTIME [facility] Last Admin: 11/21/17 21:28 Dose: Not Given Vital Signs - 8 hr 11/22/17 11/22/17 11/22/17 04:31 04:45 05:00 Temperature Pulse Rate 111 113 107 Respiratory 26 22 21 Rate Blood Pressure 148/76 141/82 140/97 (mmHg) O2 Sat by Pulse 100 95 96 Oximetry 11/22/17 11/22/17 11/22/17 05:01 05:15 05:30 Temperature Pulse Rate 99 97 99 Respiratory 25 21 22 Rate Blood Pressure 150/99 148/95 (mmHg) O2 Sat by Pulse 97 95 97 Oximetry 11/22/17 11/22/17 11/22/17 05:45 06:00 06:15 Temperature Pulse Rate 115 Respiratory 32 24 25 Rate Blood Pressure 154/101 160/105 147/105 (mmHg) O2 Sat by Pulse 98 Oximetry 11/22/17 11/22/17 11/22/17 06:30 06:45 07:00 Temperature Pulse Rate Respiratory 23 20 20 Rate Blood Pressure 157/106 155/107 153/98 (mmHg) O2 Sat by Pulse Oximetry 11/22/17 11/22/17 11/22/17 07:15 07:30 07:45 Temperature Pulse Rate 110 108 Respiratory 20 26 25 Rate Blood Pressure 150/109 166/110 168/107 (mmHg) O2 Sat by Pulse 96 98 Oximetry 11/22/17 11/22/17 11/22/17 08:00 08:15 08:30 Temperature 101.1 F Pulse Rate 112 105 107 Respiratory 23 24 23 Rate Blood Pressure 165/113 156/100 166/102 (mmHg) O2 Sat by Pulse 97 96 97 Oximetry 11/22/17 11/22/17 11/22/17 08:45 09:00 09:01 Temperature Pulse Rate 100 106 108 Respiratory 25 24 28 Rate Blood Pressure 135/103 132/85 (mmHg) O2 Sat by Pulse 96 94 98 Oximetry 11/22/17 11/22/17 11/22/17 09:15 09:30 09:46 Temperature Pulse Rate 112 109 119 Respiratory 22 28 28 Rate Blood Pressure 148/93 164/106 163/111 (mmHg) O2 Sat by Pulse 99 98 94 Oximetry 11/22/17 11/22/17 11/22/17 10:00 10:15 10:30 Temperature Pulse Rate 103 112 108 Respiratory 27 27 25 Rate Blood Pressure 150/106 144/91 129/78 (mmHg) O2 Sat by Pulse 96 98 98 Oximetry 11/22/17 11/22/17 10:45 11:00 Temperature Pulse Rate 107 101 Respiratory 24 24 Rate Blood Pressure 118/67 121/78 (mmHg) O2 Sat by Pulse 100 100 Oximetry Oxygen Devices in Use Now: OxyMask Appearance: Alert, tremulous, NAD Ears/Nose/Mouth/Throat: - - dry oral mucosa Neck: NL Appearance and Movements; NL JVP, Trachea Midline Respiratory: - - belly breathing, improved, no rhonchi or rales noted Cardiovascular: NL Sounds; No Murmurs; No JVD, - - tachycardia, irregular Skin: - - rash bilat anterior thighs - appears to be "scratch" barrera with scabbing, no erythema or drainage Neurological: - - alert to person, reoriented to place and time Nutrition: Taking PO's Result Diagrams: 11/22/17 05:32 11/22/17 05:32 Additional Lab and Data: Lab Results 11/20/17 11/20/17 11/20/17 Range/Units 11:37 11:40 11:40 WBC 8.9 (3.5-10.8) 10^3/ul RBC 3.66 L (4.0-5.4) 10^6/ul Hgb 12.8 L (14.0-18.0) g/dl Hct 37 L (42-52) % MCV 101 H (80-94) fL MCH 35 H (27-31) pg MCHC 35 (31-36) g/dl RDW 14 (10.5-15) % Plt Count 91 L D (150-450) 10^3/ul MPV 8.0 (7.4-10.4) um3 Neut % (Auto) 90.9 H (38-83) % Lymph % (Auto) 4.9 L (25-47) % [place] % (Auto) 3.5 (0-7) % Eos % (Auto) 0.1 (0-6) % Baso % (Auto) 0.6 (0-2) % Absolute Neuts (auto) 8.1 H (1.5-7.7) 10^3/ul Absolute Lymphs (auto) 0.4 L (1.0-4.8) 10^3/ul Absolute Monos (auto) 0.3 (0-0.8) 10^3/ul Absolute Eos (auto) 0 (0-0.6) 10^3/ul Absolute Basos (auto) 0.1 (0-0.2) 10^3/ul Absolute Nucleated RBC 0 10^3/ul Nucleated RBC % 0 Hem Pathologist Commnt Pending INR (Anticoag Therapy) (0.77-1.02) ABG pH 7.56 H (7.35-7.45) ABG pCO2 27 L (35-45) mmHg ABG pO2 57 L* (80-100) mmHg ABG HCO3 27.1 (19-31) mmol/L ABG O2 Saturation 95.6 (95-98) % ABG Base Excess 3.0 H (-2.0-2.0) Sodium (139-145) mmol/L Potassium (3.5-5.0) mmol/L Chloride (101-111) mmol/L Carbon Dioxide (22-32) mmol/L Anion Gap (2-11) mmol/L BUN (6-24) mg/dL Creatinine (0.67-1.17) mg/dL Est GFR ( Amer) (>60) Est GFR (Non-Af Amer) (>60) BUN/Creatinine Ratio (8-20) Glucose (70-100) mg/dL Lactic Acid 1.6 (0.5-2.0) mmol/L Calcium (8.6-10.3) mg/dL Magnesium (1.9-2.7) mg/dL Total Bilirubin (0.2-1.0) mg/dL AST (13-39) U/L ALT (7-52) U/L Alkaline Phosphatase (34-104) U/L Total Protein (6.4-8.9) g/dL Albumin (3.2-5.2) g/dL Globulin (2-4) g/dL Albumin/Globulin Ratio (1-3) Vitamin B12 (180-914) pg/mL Folate (>3.99) ng/mL TSH (0.34-5.60) mcIU/mL Urine Color Urine Appearance Urine pH (5-9) Ur Specific Orient (1.010-1.030) Urine Protein (Negative) Urine Ketones (Negative) Urine Blood (Negative) Urine Nitrate (Negative) Urine Bilirubin (Negative) Urine Urobilinogen (Negative) Ur Leukocyte Esterase (Negative) Urine WBC (Auto) (Absent) Urine RBC (Auto) (Absent) Ur Squamous Epith Cells (Absent) Urine Bacteria (Absent) Urine Glucose (Negative) 11/20/17 11/20/17 11/20/17 Range/Units 11:40 11:40 11:50 WBC (3.5-10.8) 10^3/ul RBC (4.0-5.4) 10^6/ul Hgb (14.0-18.0) g/dl Hct (42-52) % MCV (80-94) fL MCH (27-31) pg MCHC (31-36) g/dl RDW (10.5-15) % Plt Count (150-450) 10^3/ul MPV (7.4-10.4) um3 Neut % (Auto) (38-83) % Lymph % (Auto) (25-47) % [place] % (Auto) (0-7) % Eos % (Auto) (0-6) % Baso % (Auto) (0-2) % Absolute Neuts (auto) (1.5-7.7) 10^3/ul Absolute Lymphs (auto) (1.0-4.8) 10^3/ul Absolute Monos (auto) (0-0.8) 10^3/ul Absolute Eos (auto) (0-0.6) 10^3/ul Absolute Basos (auto) (0-0.2) 10^3/ul Absolute Nucleated RBC 10^3/ul Nucleated RBC % Hem Pathologist Commnt INR (Anticoag Therapy) 1.25 H (0.77-1.02) ABG pH (7.35-7.45) ABG pCO2 (35-45) mmHg ABG pO2 (80-100) mmHg ABG HCO3 (19-31) mmol/L ABG O2 Saturation (95-98) % ABG Base Excess (-2.0-2.0) Sodium 132 L D (139-145) mmol/L Potassium 3.9 (3.5-5.0) mmol/L Chloride 100 L (101-111) mmol/L Carbon Dioxide 21 L (22-32) mmol/L Anion Gap 11 (2-11) mmol/L BUN 17 (6-24) mg/dL Creatinine 1.15 (0.67-1.17) mg/dL Est GFR ( Amer) 80.9 (>60) Est GFR (Non-Af Amer) 62.9 (>60) BUN/Creatinine Ratio 14.8 (8-20) Glucose 143 H (70-100) mg/dL Lactic Acid (0.5-2.0) mmol/L Calcium 8.6 (8.6-10.3) mg/dL Magnesium 1.2 L (1.9-2.7) mg/dL Total Bilirubin 1.20 H (0.2-1.0) mg/dL AST 30 (13-39) U/L ALT 21 (7-52) U/L Alkaline Phosphatase 49 (34-104) U/L Total Protein 6.5 (6.4-8.9) g/dL Albumin 3.9 (3.2-5.2) g/dL Globulin 2.6 (2-4) g/dL Albumin/Globulin Ratio 1.5 (1-3) Vitamin B12 991 H (180-914) pg/mL Folate > 20.00 (>3.99) ng/mL TSH 2.73 (0.34-5.60) mcIU/mL Urine Color Yellow Urine Appearance Clear Urine pH 7.0 (5-9) Ur Specific Orient 1.013 (1.010-1.030) Urine Protein Negative (Negative) Urine Ketones Trace A (Negative) Urine Blood 1+ A (Negative) Urine Nitrate Negative (Negative) Urine Bilirubin Negative (Negative) Urine Urobilinogen Negative (Negative) Ur Leukocyte Esterase Negative (Negative) Urine WBC (Auto) Trace(0-5/hpf) (Absent) Urine RBC (Auto) Trace(0-2/hpf) (Absent) Ur Squamous Epith Cells Present A (Absent) Urine Bacteria 3+ A (Absent) Urine Glucose Negative (Negative) Microbiology and Other Data: Microbiology 11/21/17 15:45 Anaerobic Blood Culture - Preliminary Blood Venous Diagnostic Imaging: REPEAT CXT 11/20/17 Patient Name: HUMBERTO CAPPS Medical Record#: [id number] Ordering Physician: Addison Quick MD Acct.#: [id number] : 1945 Age: 72 Sex: M Location: [facility] Exam Date: 11/21/17 160 ADM Status: ADM IN Order Information: CHEST AP PORTABLE Accession Number: [id number] CPT: 13986 INDICATION: Evaluate for infiltrate. COMPARISON: Comparison is made with prior study from November 20, 2017. TECHNIQUE: A portable view of the chest was obtained. FINDINGS: The heart is moderately enlarged and unchanged from the prior study. The lungs are underinflated. There are small bibasilar infiltrates. IMPRESSION: LOW LUNG VOLUMES, SMALL BIBASILAR INFILTRATES. <Electronically signed by Asher Wayne MD in [place]> 11/21/17 1632 Dictated By: Asher Wayne MD Dictated Date/Time: 11/21/17 1632 Transcribed Date/Time: 11/21/17 1630 Copy to: Patient Name: HUMBERTO CAPPS Medical Record#: [id number] Ordering Physician: Eva AMBROCIO Acct.#: [id number] : 1945 Age: 72 Sex: M Location: [address] [place] [address] MEDICAL Exam Date: 11/20/17 1330 ADM Status: ADM IN Order Information: CTA CHEST Accession Number: [id number] CPT: 28080 Indication: Hypoxia, evaluate for pulmonary embolus. Contrast: Administered 83.2 ml of OMNIPAQUE 350 mg/ml CTA of the chest was performed after IV contrast demonstration. Coronal and sagittal reconstructed images were obtained. The pulmonary arterial tree is well opacified. There are no filling defects present to suggest pulmonary embolus. Bibasilar atelectasis is noted. No evidence of alveolar consolidation is noted. Aorta demonstrates no evidence of aortic dissection. Cardiomegaly is noted. The trachea and major bronchi appear patent. Bibasilar atelectasis is noted. The visualized abdominal organs are otherwise unremarkable. IMPRESSION: No evidence of pulmonary embolus is noted. No definite alveolar consolidation is noted although some minimal pleural thickening is noted. There is cardiomegaly without pericardial effusion noted. <Electronically signed by Margareth Mcclellan MD in [place]> 11/20/17 1437 Dictated By: Margareth Mcclellan MD Dictated Date/Time: 11/20/17 1437 Transcribed Date/Time: 11/20/17 1429 Copy to: CC:Angelina Ramos MD; Eva AMBROCIO; Onur Rodriguez MD Imaging - [facility] - [facility] [address] [address] ph [phone]) ph ([phone]) ph ([phone]) Assess/Plan/Problems-Billing Assessment: This is a 72 y/o male with hx of ETOH abuse with sobriety per patient report for 8 months that reports binge drinking since and stopped ETOH last Sunday, presents with acute alcohol withdrawal and hypoxia. - Patient Problems (1) Sepsis Comment: - Unclear sources, likely chest - T-max 101.0 today - Urine with one bottle of group B strep? - Empiric zosyn - BP soft and remains tachycardic, continue tele and ICU care (2) Alcohol withdrawal Code(s): F10.239 - ALCOHOL DEPENDENCE WITH WITHDRAWAL, UNSPECIFIED SNOMED Code (s): 293138374 Comment: - WAM scores lower - Mentation appears improved - Continue supportive care (3) Hypoxia Code(s): R09.02 - HYPOXEMIA SNOMED Code(s): 930605431 Comment: - Repeat gas improved after BiPap - On salter now and tolerating - Continue to wean - Concern that infectious process/sepsis is culprit (4) Afib Code(s): I48.91 - UNSPECIFIED ATRIAL FIBRILLATION SNOMED Code(s): 49446079 Comment: - Irregular and tachycardic but no afib - Continue metoprolol XL and eliquis (5) History of pulmonary embolus (PE) Code(s): Z86.711 - PERSONAL HISTORY OF PULMONARY EMBOLISM SNOMED Code(s): 439763192 Comment: - CTA chest as above, no PE - Continue Eliquis (6) Depression Code(s): F32.9 - MAJOR DEPRESSIVE DISORDER, SINGLE EPISODE, UNSPECIFIED SNOMED Code(s): 02693130 Comment: - Continue zoloft, may consider psych eval when medically stable (7) DVT prophylaxis Code(s): FXR4167 - SNOMED Code(s): 257513913 Comment: - On eliquis (8) Full code status Code(s): Z78.9 - OTHER SPECIFIED HEALTH STATUS SNOMED Code(s): 591891817 Status and Disposition: Remain inpatient. Guarded. Spoke with patient's sig other Makenna who will be coming to see the patient today.
[2017-11-22] MEDS: Atorvastatin* 20 MG TAB PO SCH (21:11)
[2017-11-23] MEDS: Zolpidem TAB* 5 MG PO SCH ×2 (01:26→20:53)
[2017-11-23] MEDS: Vancomycin(*) 1,000 MG in NS 0.9% 250 ML* 250 ML IVPB SCH ×2 (02:15→15:19)
[2017-11-23 06:02] LABS: Hematocrit 34 % (42-52); Hemoglobin 11.4 g/dl (14.0-18.0); Mean Corpuscular HGB Conc 34 g/dl (31-36); Mean Corpuscular Hemoglobin 35 pg (27-31); Mean Corpuscular Volume 103 fL (80-94); Mean Platelet Volume 8.9 um3 (7.4-10.4); Platelet Count 79 10^3/ul (150-450); Red Blood Count 3.25 10^6/ul (4.0-5.4); Red Cell Distribution Width 15 % (10.5-15); White Blood Count 9.6 10^3/ul (3.5-10.8)
[2017-11-23 06:15] LABS: EGFR Non-African American 64.2 (>60)
[2017-11-23] MEDS: Docusate CAP* 100 MG PO SCH ×2 (08:23→20:52)
[2017-11-23] MEDS: Thiamine TAB* 100 MG TAB PO SCH (08:23)
[2017-11-23] MEDS: Multivitamins/Minerals TAB PO SCH (08:23)
[2017-11-23] MEDS: Metoprolol Succinate XL TAB* 25 MG PO SCH ×2 (08:23→20:52)
[2017-11-23] MEDS: Cyanocobalamin TAB* 500 MCG PO SCH (08:23)
[2017-11-23] MEDS: Magnesium Oxide TAB* 400 MG PO SCH ×2 (08:23→20:53)
[2017-11-23] MEDS: Folic Acid TAB* 1 MG PO SCH (08:23)
[2017-11-23] MEDS: Aspirin 81 mg CHEW TAB* 81 MG TAB.CHEW PO SCH (08:23)
[2017-11-23] MEDS: Sertraline* 50 MG TAB PO SCH (08:23)
--- NOTE | 2017-11-23 09:28 | PN ---
Progress Note - Progress Note Date of Service: 11/23/17 Note: Progress Note Critical Care 24 hour events: -on NIV overnight, now on oximask -audible wheezing this morning, mild distress -in chair now, eating -febrile 101 overnight, BP stable, HR stable -more awake, alert, answering questions Tele: Afib Vitals: tmax 101 Vital Signs Temp 99.6 F 11/23/17 08:00 Pulse 91 11/23/17 09:00 Resp 19 11/23/17 09:00 BP 156/108 11/23/17 09:00 Pulse Ox 99 11/23/17 09:00 Intake & Output 11/22/17 11/23/17 11/23/17 18:59 06:59 18:59 Intake Total 2030 1803 160 Output Total 300 Balance 2030 1503 160 Weight 265 lb 6.985 oz Intake: IV Fluids 1391 1803 ABX - VANCOMYCIN 266 270 ABX - ZOSYN 117 305 LR 887 1081 NS (0.9%) 121 147 Oral 640 160 Output: Urine 300 Other: Estimated Void Large Medium # Voids 2 2 O2/Vent: aerosol mask 35% Infusions: LR 75cc/hr Current Medication Acetaminophen (Tylenol Tab*) 650 mg PO Q4H PRN PRN Reason: FEVER/PAIN Last Admin: 11/21/17 05:55 Dose: 650 mg Al Hydrox/Mg Hydrox/Simethicone (Maalox Plus*) 30 ml PO Q6H PRN PRN Reason: INDIGESTION Albuterol (Ventolin 2.5 Mg/3 Ml Neb.Terrie*) 2.5 mg INH Q4H PRN PRN Reason: SOB/WHEEZING Last Admin: 11/22/17 19:39 Dose: 2.5 mg Amlodipine Besylate (Norvasc Tab*) 10 mg PO DAILY [facility] Aspirin (Aspirin 81 Mg Chew Tab*) 81 mg PO DAILY [facility] Last Admin: 11/23/17 08:23 Dose: 81 mg Atorvastatin Calcium (Lipitor*) 20 mg PO BEDTIME [facility] Last Admin: 11/22/17 21:11 Dose: 20 mg Cyanocobalamin (Vitamin B12 Tab*) 500 mcg PO DAILY [facility] Last Admin: 11/23/17 08:23 Dose: 500 mcg Docusate Sodium (Colace Cap*) 100 mg PO BID [facility] Last Admin: 11/23/17 08:23 Dose: 100 mg Folic Acid (Folvite Tab*) 1 mg PO DAILY [facility] Last Admin: 11/23/17 08:23 Dose: 1 mg Piperacillin Sod/Tazobactam (Sod 13.5 gm/ Sodium Chloride) 500 mls @ 20.833 mls /hr IVPB Q24H [facility] Last Admin: 11/22/17 09:26 Dose: 20.833 mls/hr Lactated Ringer's (Lactated Ringers 1000 Ml Bag*) 1,000 mls @ 75 mls/hr IV PER RATE [facility] Last Admin: 11/22/17 16:16 Dose: 75 mls/hr Vancomycin HCl 1,000 mg/ (Sodium Chloride) 250 mls @ 166.667 mls/hr IVPB Q12H [facility] Last Admin: 11/23/17 02:15 Dose: 166.667 mls/hr Magnesium Oxide (Magox 400 Tab*) 400 mg PO BID [facility] Last Admin: 11/23/17 08:23 Dose: 400 mg Metoprolol Succinate (Toprol Xl Tab*) 25 mg PO BID [facility] Last Admin: 11/23/17 08:23 Dose: 25 mg Multivitamins/Minerals (Theragran/Minerals Tab*) 1 tab PO DAILY [facility] Last Admin: 11/23/17 08:23 Dose: 1 tab Ondansetron HCl (Zofran Inj*) 4 mg IV Q4H PRN PRN Reason: NAUSEA/VOMITING Oxycodone/Acetaminophen (Percocet 5/325 Tab*) 1 tab PO Q4H PRN PRN Reason: Pain Last Admin: 11/21/17 03:50 Dose: 1 tab Pharmacy Consult (Zosyn Per Pharmacy*) 1 note FOLLOW UP . PRN PRN Reason: PER PROTOCOL Pharmacy Consult (Vancomycin Per Pharmacy*) 1 note FOLLOW UP .VANC PER PHARMACY [facility] Pharmacy Profile Note (Vancomycin Trough Check) 1 note FOLLOW UP 1400 ONE Stop: 11/24/17 14:01 Sertraline HCl (Zoloft*) 50 mg PO DAILY [facility] Last Admin: 11/23/17 08:23 Dose: 50 mg Thiamine HCl (Vitamin B-1 Tab*) 100 mg PO DAILY [facility] Last Admin: 11/23/17 08:23 Dose: 100 mg Zolpidem Tartrate (Ambien Tab*) 5 mg PO BEDTIME [facility] Last Admin: 11/23/17 01:26 Dose: Not Given Physical Exam: General: awake, alert, mild distress+, not diaphoretic Head: normocephalic, atraumatic HEENT: no pallor, no icterus, moist mucous membranes Neck: soft, supple, no jvd, no stridor CVS: irregular, normal rate, no murmur Resp: bilateral air entry, diminished bilaterally, no rhales, + wheeze, no rhonchi, no acc muscle use now Abdomen: soft, nontender, nondistended, bowel sounds present Ext: pulses+, warm, no edema Skin: intact Neuro: awake, alert, oriented 2-3x, moves all ext, moved to chair Labs: Laboratory Results - last 24 hr 11/22/17 11/23/17 11/23/17 13:34 05:35 05:35 WBC 9.6 RBC 3.25 L Hgb 11.4 L Hct 34 L MCV 103 H MCH 35 H MCHC 34 RDW 15 Plt Count 79 L MPV 8.9 Sodium 131 L Potassium 3.7 Chloride 98 L Carbon Dioxide 25 Anion Gap 8 BUN 18 Creatinine 1.13 Est GFR ( Amer) 82.5 Est GFR (Non-Af Amer) 64.2 BUN/Creatinine Ratio 15.9 Glucose 112 H Calcium 8.2 L Influenza A (Rapid) Negative Influenza B (Rapid) Negative Imaging: CT brain 11/20 - no acute findings CTA chest 11/20 - no PE, no acute infiltrates CXR 11/21 - low volumes, basilar infiltrates Assessment: 72y M pmhx of Afib on AC, DVT, PE, HLD, HTN, past alcohol abuse. Comes to ER 11/20 for complaints of nausea/vomiting, tremors, difficulty ambulating. He stated to them he was off alcohol and relapsed and started drinking again heavy for 1-2 weeks around [facility] and stopped on Sunday. He comes to ER for those complaints above. He was deemed to be in alcohol withdrawal, started on alcohol withdrawal protocol. Initial wbc of 9, plt 91, mild hypoxia with PO2 57. Overnight given Ativan PO 6mg, was still awake, restless. This morning he was given Ativan 1 mg PO. He was febrile 101.3 in AM and now increased wbc to 13. Sometime after that his mental status changed, more lethargic, seemed to have some hypoxia now and so oxygen was increased. Hospitalist on service saw patient and attempted to try NIV for hypoxia. Given his poor mental status he was upgraded to the ICU. Here was hypercapneic, hypoxic, hypotension developing with poor mental status. -Acute Hypercapneic and Hypoxic Respiratory Failure -Encephelopathy, metabolic/toxic origin -Severe Sepsis -Group B strept bacteremia and UTI -Alcohol withdrawal, not active at this time. -thrombocytopenia -Wheezing Afib Plan: Neuro- mental status improved, not hallucinating or delirious, improved. delirium prec. asp prec. no bdz indicated at this time, will re-eval if needed further. CVS- BP stable, hypertensive. Afib rate controlled. Cont metoprolol 25 bid. add norvasc 10mg po daily. Dec LR 50cc/hour. IV abx; bacteremia+, UTI+. Hold eliquis till plt recover. Resp- Wheezing+, bronchodilators, reassess if steroids needed. CXR today to eval for congestion. Dec IVF. On oximask 35%. Bronchodilators q4h prn. Keep NIV for night time as needed now. ID- febrile 101. wbc 9. Group B strept+ in blood cx and urine cx. Still febrile though. WIll cont zosyn/vanco for now, though strept is likely sensitive to B- lactams, pending any sensitivities. IV zosyn/vanco (day#3). GI- Cardiac diet. aspiration prec. MVI/folate/thiamine once able to take PO. Renal- MERCEDEZ noted from admission, Cr downtrend now. K okay, no acidosis. LA 2.0. cont LR infusion. making urine, incontinent. Heme- hg okay, mild anemia. thrombocytopenia, plt increasing. no bleeding noted. drug induced? alcohol induced? Will need to hold eliquis till plt recover. Endo- fingersticks as needed. Musculsk- oob to chair Wounds- none Nutrition- cardiac diet DVT prophylaxis: SCDs GI prophylaxis: - Central Line: - Arterial Line: - Laureano Cathetor: - Disposition: ICU Code Status: full code Total Critical Care time is 35 minutes, excluding procedures/teaching Addison Quick MD Seam Stayer (Electronically Signed)
[2017-11-23] MEDS: Piperacillin/Tazobactam 13.5 GM IV 24 hour continuous infusion IVPB SCH ×2 (10:00)
--- NOTE | 2017-11-23 10:12 | RAD ---
HISTORY: Wheezing, respiratory distress COMPARISONS: November 21, 2017 VIEWS: 1: frontal portable view of the chest at 9:42 AM FINDINGS: LINES AND TUBES: None. CARDIOMEDIASTINAL SILHOUETTE: The cardiac silhouette is enlarged. The cardiomediastinal silhouette is otherwise normal for portable technique. PLEURA: The costophrenic angles are sharp. No pleural abnormalities are noted. LUNG PARENCHYMA: The lungs are clear. ABDOMEN: The upper abdomen is clear. There is no subphrenic gas. BONES AND SOFT TISSUES: No bone or soft tissue abnormalities are noted. IMPRESSION: CARDIOMEGALY
[2017-11-23] MEDS ORDERED: methylPREDNISolone 125 MG* 2 ML VIAL IV ONE (10:32)
[2017-11-23] MEDS ORDERED: Perflutren Lipid Microsphere* 3 ML VIAL ONE (15:35)
--- NOTE | 2017-11-23 16:41 | ECHO ---
Patient: HUMBERTO CAPPS [facility] Rec#: [id number] : 1945 Date: 11/23/2017 Age: 72y Height: 177.8 cm / 70.0 in Weight: 120.2 kg / 264.9 lbs Sex: M BSA: 2.35 Room#: [facility] Admit Date#: 11/20/2017 Type: Inpatient Referring: Addison Quick Reading: Rojelio Thakur MD Upholstery Instructor: Isabel Moore RDCS CC: Onur Rodriguez MD Transthoracic Echocardiogram Indication: Bacteremia BP: 141/88 HR: 99 Rhythm: A-Fib Findings History: A-fib, PE, DVT, ETOH abuse, +BC Strep Agalactiae, obesity. Technical Comments: The study is technically difficult. The study is technically limited due to patient body habitus. Completed at 1615. Left Ventricle: The left ventricular chamber size is normal. Mild concentric left ventricular hypertrophy is observed. Global left ventricular wall motion and contractility are within normal limits. Left ventricular systolic function is at the lower limits of normal. The estimated ejection fraction is 50-55%. The assessment of diastolic function is non-diagnostic. Left Atrium: The left atrium is severely dilated. Right Ventricle: The right ventricle is mild to moderately dilated. The right ventricular global systolic function is mildly reduced. Right Atrium: The right atrial cavity size is severely dilated. Aortic Valve: The aortic valve is trileaflet. The aortic valve leaflets are mildly thickened. There is moderate thickening of the left coronary cusp.Also seen on prior echo 10/10/15. There is trace to mild aortic regurgitation. There is no evidence of aortic stenosis. Mitral Valve: There is mitral annular calcification. The mitral valve leaflets are mildly thickened. There is trace to mild mitral regurgitation. Tricuspid Valve: The tricuspid valve leaflets are normal. There is trace to mild tricuspid regurgitation. The right ventricular systolic pressure is estimated at 44 mmHg. There is evidence of mild to moderate pulmonary hypertension. Pulmonic Valve: The pulmonic valve appears normal. There is no evidence of pulmonic regurgitation. There is no pulmonic stenosis. Pericardium: There is no significant pericardial effusion. A pericardial fat pad is visualized. Aorta: There is mild dilatation of the ascending aorta. There is no dilatation of the aortic arch. The aortic root is normal in size. Pulmonary Artery: The main pulmonary artery is not well visualized. Venous: The inferior vena cava is dilated. There is an approximate 50% respiratory change in the inferior vena cava dimension. Contrast: Definity was used to optimize study. 5 mL of diluted Definity was utilized. Intravenous contrast was used to enhance endocardial border definition. Conclusions Left ventricular systolic function is at the lower limits of normal. The estimated ejection fraction is 50-55%. Global left ventricular wall motion and contractility are within normal limits. The left ventricular chamber size is normal. Mild concentric left ventricular hypertrophy is observed. The left atrium is severely dilated. The right ventricle is mild to moderately dilated. The right ventricular global systolic function is mildly reduced. The right atrial cavity size is severely dilated. There is trace to mild tricuspid regurgitation. There is evidence of mild to moderate pulmonary hypertension. Since the prior echocardiogram completed 10/10/15, pertinent changes are prior normal right ventricular size and systolic function noted. Measurements Name Value Normal Range RVIDd (AP) 2D 2.9 cm (0.9 - 2.6) RVDdMajor (2D) 5.4 cm (2.2 - 4.4) RAd ISD 4CH 8 cm (3.4 - 4.9) RA (A4C)W 5.9 cm (2.9 - 4.6) IVSd (2D) 1.3 cm (0.6 - 1) LVPWd (2D) 1.2 cm (0.6 - 1) LVIDd (2D) 5.3 cm (3.6 - 5.4) LVIDs (2D) 3.6 cm - LV FS (2D) 32 % (25 - 45) EF Teichholz (2D) 59 % - Aortic Annulus 2.2 cm (1.4 - 2.6) Ao root diameter (2D) 2.9 cm (2.1 - 3.5) Ascending Ao 3.7 cm (2.1 - 3.4) Aortic arch 3.1 cm (1.8 - 3.4) LA dimension (AP) 2D 4.2 cm (2.3 - 3.8) LAd ISD 4CH 7.3 cm (2.9 - 5.3) LA ISD 4CH W 5.1 cm (2.5 - 4.5) Name Value Normal Range LA ESV SP 4CH (A/L) 86 ml - LA ESV SP 2CH (A/L) 133 ml - LA ESV BP (A/L) 117 ml - LA ESV BP (A/L) index 50 ml/m2 - LA ESV SP 4CH (MOD) 82 ml - LA ESV SP 2CH (MOD) 131 ml - Name Value Normal Range MV E-wave Vmax 1.12 m/sec - MV deceleration time 135.8 msec - LV septal e' Vmax 0.11 m/sec - LV lateral e' Vmax 0.11 m/sec - LV E:e' septal ratio 10.18 ratio - LV E:e' lateral ratio 10.18 ratio - Name Value Normal Range AV Vmax 1.33 m/sec - AV VTI 26.93 cm - AV peak gradient 7.2 mmHg - AV mean gradient 4.35 mmHg - LVOT Vmax 0.69 m/sec - LVOT VTI 15.85 cm - LVOT peak gradient 1.91 mmHg - LVOT mean gradient 1.05 mmHg - AR peak gradient 14.4 mmHg - ABE Vmax 0.53 m/sec - Name Value Normal Range TR Vmax 3 m/sec - TR peak gradient 36 mmHg - RAP 8 mmHg - RVSP 44 mmHg - IVC diameter 2.4 cm - Name Value Normal Range PV Vmax 0.72 m/sec - PV peak gradient 2.16 mmHg -
[2017-11-23] MEDS: Atorvastatin* 20 MG TAB PO SCH (20:48)
[2017-11-23] MEDS: methylPREDNISolone SOD 40 MG* 1 ML VIAL IV SCH (22:05)
[2017-11-24] MEDS: Vancomycin(*) 1,000 MG in NS 0.9% 250 ML* 250 ML IVPB SCH (02:04)
[2017-11-24 05:51] LABS: Hematocrit 32 % (42-52); Hemoglobin 10.7 g/dl (14.0-18.0); Mean Corpuscular HGB Conc 34 g/dl (31-36); Mean Corpuscular Hemoglobin 35 pg (27-31); Mean Corpuscular Volume 102 fL (80-94); Mean Platelet Volume 9.6 um3 (7.4-10.4); Platelet Count 102 10^3/ul (150-450); Red Blood Count 3.08 10^6/ul (4.0-5.4); Red Cell Distribution Width 14 % (10.5-15); White Blood Count 6.9 10^3/ul (3.5-10.8)
[2017-11-24 06:09] LABS: EGFR Non-African American 85.6 (>60)
[2017-11-24] MEDS: Metoprolol Succinate XL TAB* 25 MG PO SCH ×2 (08:14→20:53)
[2017-11-24] MEDS: Multivitamins/Minerals TAB PO SCH (08:14)
[2017-11-24] MEDS: Cyanocobalamin TAB* 500 MCG PO SCH (08:15)
[2017-11-24] MEDS: Thiamine TAB* 100 MG TAB PO SCH (08:15)
[2017-11-24] MEDS: Aspirin 81 mg CHEW TAB* 81 MG TAB.CHEW PO SCH (08:15)
[2017-11-24] MEDS: Docusate CAP* 100 MG PO SCH ×2 (08:15→20:53)
[2017-11-24] MEDS: Sertraline* 50 MG TAB PO SCH (08:15)
[2017-11-24] MEDS: Folic Acid TAB* 1 MG PO SCH (08:15)
[2017-11-24] MEDS: Magnesium Oxide TAB* 400 MG PO SCH ×2 (08:15→20:53)
[2017-11-24] MEDS ORDERED: amLODIPine TAB* 5 MG PO SCH (09:00)
[2017-11-24] MEDS: methylPREDNISolone SOD 40 MG* 1 ML VIAL IV SCH (09:20)
[2017-11-24] MEDS: Piperacillin/Tazobactam 13.5 GM IV 24 hour continuous infusion IVPB SCH ×2 (09:22)
--- NOTE | 2017-11-24 11:33 | PN ---
Progress Note - Progress Note Date of Service: 11/24/17 Note: Progress Note Critical Care 24 hour events: -NC overnight; PRN NIV if needed -BP stable, HR controlled -no cp/sob/n/v -awake, alert, in chair now. speaking clearly. at bedside states he looks much better Tele: Afib Vitals: Vital Signs Temp 98.1 F 11/24/17 11:04 Pulse 82 11/24/17 11:04 Resp 16 11/24/17 11:04 BP 118/66 11/24/17 11:04 Pulse Ox 95 11/24/17 11:04 Intake & Output 11/23/17 11/24/17 11/24/17 18:59 06:59 18:59 Intake Total 1210 2412 280 Balance 1210 2412 280 Weight 264 lb 1.82 oz Intake: IV Fluids 637 1316 ABX - VANCOMYCIN 260 ABX - ZOSYN 159 LR 549 746 NS (0.9%) 88 151 IVPB 183 416 ABX - VANCOMYCIN 260 ABX - ZOSYN 183 156 Oral 390 680 280 Other: Estimated Void Large Large Date of Last Bowel 11/24/17 Movement # Bowel Movements 1 Estimated Stool Amount Large # Voids 1 1 O2/Vent: NC 2L Infusions: - Current Medication Acetaminophen (Tylenol Tab*) 650 mg PO Q4H PRN PRN Reason: FEVER/PAIN Last Admin: 11/21/17 05:55 Dose: 650 mg Al Hydrox/Mg Hydrox/Simethicone (Maalox Plus*) 30 ml PO Q6H PRN PRN Reason: INDIGESTION Albuterol (Ventolin 2.5 Mg/3 Ml Neb.Terrie*) 2.5 mg INH Q4H PRN PRN Reason: SOB/WHEEZING Last Admin: 11/22/17 19:39 Dose: 2.5 mg Amlodipine Besylate (Norvasc Tab*) 10 mg PO DAILY [facility] Last Admin: 11/24/17 08:14 Dose: 10 mg Aspirin (Aspirin 81 Mg Chew Tab*) 81 mg PO DAILY [facility] Last Admin: 11/24/17 08:15 Dose: 81 mg Atorvastatin Calcium (Lipitor*) 20 mg PO BEDTIME [facility] Last Admin: 11/23/17 20:48 Dose: 20 mg Cyanocobalamin (Vitamin B12 Tab*) 500 mcg PO DAILY [facility] Last Admin: 11/24/17 08:15 Dose: 500 mcg Docusate Sodium (Colace Cap*) 100 mg PO BID [facility] Last Admin: 11/24/17 08:15 Dose: 100 mg Folic Acid (Folvite Tab*) 1 mg PO DAILY [facility] Last Admin: 11/24/17 08:15 Dose: 1 mg Piperacillin Sod/Tazobactam (Sod 13.5 gm/ Sodium Chloride) 500 mls @ 20.833 mls /hr IVPB Q24H [facility] Last Admin: 11/24/17 09:22 Dose: 20.833 mls/hr Lactated Ringer's (Lactated Ringers 1000 Ml Bag*) 1,000 mls @ 50 mls/hr IV PER RATE [facility] Last Admin: 11/23/17 22:04 Dose: 50 mls/hr Magnesium Oxide (Magox 400 Tab*) 400 mg PO BID [facility] Last Admin: 11/24/17 08:15 Dose: 400 mg Methylprednisolone Sodium Succinate (Solu-Medrol 40 Mg) 40 mg IV Q12H [facility] Last Admin: 11/24/17 09:20 Dose: 40 mg Metoprolol Succinate (Toprol Xl Tab*) 25 mg PO BID [facility] Last Admin: 11/24/17 08:14 Dose: 25 mg Multivitamins/Minerals (Theragran/Minerals Tab*) 1 tab PO DAILY [facility] Last Admin: 11/24/17 08:14 Dose: 1 tab Ondansetron HCl (Zofran Inj*) 4 mg IV Q4H PRN PRN Reason: NAUSEA/VOMITING Oxycodone/Acetaminophen (Percocet 5/325 Tab*) 1 tab PO Q4H PRN PRN Reason: Pain Last Admin: 11/21/17 03:50 Dose: 1 tab Pharmacy Consult (Zosyn Per Pharmacy*) 1 note FOLLOW UP . PRN PRN Reason: PER PROTOCOL Sertraline HCl (Zoloft*) 50 mg PO DAILY [facility] Last Admin: 11/24/17 08:15 Dose: 50 mg Thiamine HCl (Vitamin B-1 Tab*) 100 mg PO DAILY [facility] Last Admin: 11/24/17 08:15 Dose: 100 mg Zolpidem Tartrate (Ambien Tab*) 5 mg PO BEDTIME [facility] Last Admin: 11/23/17 20:53 Dose: Not Given Physical Exam: General: awake, alert, no distress, not diaphoretic Head: normocephalic, atraumatic HEENT: no pallor, no icterus, moist mucous membranes Neck: soft, supple, no jvd, no stridor CVS: irregular, normal rate, no murmur Resp: bilateral air entry, no rhales/rhonchi/wheeze, no acc muscle use now Abdomen: soft, nontender, nondistended, bowel sounds present Ext: pulses+, warm, no edema Skin: intact Neuro: awake, alert, oriented 3x, moves all ext Labs: Laboratory Results - last 24 hr 11/23/17 11/24/17 11/24/17 14:18 05:15 05:15 WBC 6.9 RBC 3.08 L Hgb 10.7 L Hct 32 L MCV 102 H MCH 35 H MCHC 34 RDW 14 Plt Count 102 L MPV 9.6 Sodium 133 L Potassium 3.9 Chloride 101 Carbon Dioxide 25 Anion Gap 7 BUN 21 Creatinine 0.88 Est GFR ( Amer) 110.1 Est GFR (Non-Af Amer) 85.6 BUN/Creatinine Ratio 23.9 H Glucose 164 H Calcium 7.9 L Vancomycin Trough 6.1 Imaging: CT brain 11/20 - no acute findings CTA chest 11/20 - no PE, no acute infiltrates CXR 11/21 - low volumes, basilar infiltrates Assessment: 72y M pmhx of Afib on AC, DVT, PE, HLD, HTN, past alcohol abuse. Comes to ER 11/20 for complaints of nausea/vomiting, tremors, difficulty ambulating. He stated to them he was off alcohol and relapsed and started drinking again heavy for 1-2 weeks around [facility] and stopped on Sunday. He comes to ER for those complaints above. He was deemed to be in alcohol withdrawal, started on alcohol withdrawal protocol. Initial wbc of 9, plt 91, mild hypoxia with PO2 57. Overnight given Ativan PO 6mg, was still awake, restless. This morning he was given Ativan 1 mg PO. He was febrile 101.3 in AM and now increased wbc to 13. Sometime after that his mental status changed, more lethargic, seemed to have some hypoxia now and so oxygen was increased. Hospitalist on service saw patient and attempted to try NIV for hypoxia. Given his poor mental status he was upgraded to the ICU. Here was hypercapneic, hypoxic, hypotension developing with poor mental status. -Acute Hypercapneic and Hypoxic Respiratory Failure -Encephelopathy, metabolic/toxic origin -Severe Sepsis -Group B strept bacteremia and UTI -Alcohol withdrawal, not active at this time. -thrombocytopenia -Bronchospasm -Afib Plan: Neuro- mental status improved, stable. no active hallucinations/withdrawal noted. delirium prec. no bdz indicated at this time CVS- BP stable/improved. Afib rate controlled. Cont metoprolol 25 bid. aDec norvasc 5mg daily. d/c ivf. Right leg some swelling as prior, d/c fluid and re- eval, may need low dose lasix. Check fobt. hg 10s. re-eval eliquis restart tomorrow. IV abx; bacteremia+, UTI+. ECHO 11/23 shows normal lv function, mild RV dysfunction, no vegetations noted. Resp- Wheezing better; bronchodilators q4h prn. Dec solumedrol to 40mg iv daily for 2 more days. CXR 11/23 no infiltrates. ID- afebrile. wbc normal. Group B strept+ bacteremia/UTI+. d/c vanco. Cont Zosyn (day#4). ECHO with no visible vegetations or sig new valve abn. Repeat Blood cx to assess bacteremia clearance. If negative, can probably switch to Ceftriaxone for total of 7-10days of IV abx. GI- Cardiac diet. aspiration prec. MVI/folate/thiamine Renal- MERCEDEZ noted from admission, Cr normalized. K okay, no acidosis. d/c LR. Heme- hg slight downtrend. no bleeding anywhere noted. check fobt. reassess eliquis if fobt neg and h/h stable. mild anemia. thrombocytopenia improving. Endo- fingersticks as needed. Musculsk- oob to chair, pt/ot; keep right leg elevated. obtain LE duplex right leg. Wounds- none Nutrition- cardiac diet DVT prophylaxis: SCDs GI prophylaxis: - Central Line: - Arterial Line: - Laureano Cathetor: - Disposition: hemodyn stable, resp status improved; stable for transfer to medical floor. signed out to hospitalist service. Code Status: full code Addison Quick MD Civil Engineer (Electronically Signed)
[2017-11-24] MEDS ORDERED: Vancomycin Trough Check NOTE FOLLOW UP ONE (14:00)
[2017-11-24] MEDS: Atorvastatin* 20 MG TAB PO SCH (20:53)
[2017-11-24] MEDS: Zolpidem TAB* 5 MG PO SCH (20:53)
[2017-11-25 06:22] LABS: Hematocrit 34 % (42-52); Hemoglobin 11.7 g/dl (14.0-18.0); Mean Corpuscular HGB Conc 35 g/dl (31-36); Mean Corpuscular Hemoglobin 35 pg (27-31); Mean Corpuscular Volume 101 fL (80-94); Mean Platelet Volume 8.5 um3 (7.4-10.4); Platelet Count 171 10^3/ul (150-450); Red Blood Count 3.34 10^6/ul (4.0-5.4); Red Cell Distribution Width 15 % (10.5-15); White Blood Count 10.3 10^3/ul (3.5-10.8)
[2017-11-25 06:38] LABS: EGFR Non-African American 72.2 (>60)
[2017-11-25] MEDS: Folic Acid TAB* 1 MG PO SCH (09:31)
[2017-11-25] MEDS: Sertraline* 50 MG TAB PO SCH (09:31)
[2017-11-25] MEDS: Metoprolol Succinate XL TAB* 25 MG PO SCH ×2 (09:31→20:19)
[2017-11-25] MEDS: Magnesium Oxide TAB* 400 MG PO SCH ×2 (09:31→20:18)
[2017-11-25] MEDS: Aspirin 81 mg CHEW TAB* 81 MG TAB.CHEW PO SCH (09:31)
[2017-11-25] MEDS: amLODIPine TAB* 5 MG PO SCH (09:31)
[2017-11-25] MEDS: Cyanocobalamin TAB* 500 MCG PO SCH (09:31)
[2017-11-25] MEDS: Thiamine TAB* 100 MG TAB PO SCH (09:32)
[2017-11-25] MEDS: Multivitamins/Minerals TAB PO SCH (09:32)
[2017-11-25] MEDS: Docusate CAP* 100 MG PO SCH ×2 (09:32→20:02)
[2017-11-25] MEDS: methylPREDNISolone SOD 40 MG* 1 ML VIAL IV SCH (09:33)
[2017-11-25] MEDS: Piperacillin/Tazobactam 13.5 GM IV 24 hour continuous infusion IVPB SCH ×2 (09:33)
--- NOTE | 2017-11-25 14:16 | PN ---
Subjective Date of Service: 11/25/17 Interval History: Patient feels good today, no CP, SOB, N/V, abdominal pain, diarrhea, constipation, tremulousness, F/C, or other pain. Patient states that he has never had a UTI before and denies any symptoms of BPH. Patient states that he has had swelling in his legs chronically and that he has had a significant evaluation for this. Patient states that he had DVTs in both legs. Family History: Unchanged from Admission Social History: Unchanged from Admission Past Medical History: Unchanged from Admission Objective Active Medications: Acetaminophen (Tylenol Tab*) 650 mg PO Q4H PRN PRN Reason: FEVER/PAIN Last Admin: 11/21/17 05:55 Dose: 650 mg Al Hydrox/Mg Hydrox/Simethicone (Maalox Plus*) 30 ml PO Q6H PRN PRN Reason: INDIGESTION Albuterol (Ventolin 2.5 Mg/3 Ml Neb.Terrie*) 2.5 mg INH Q4H PRN PRN Reason: SOB/WHEEZING Last Admin: 11/22/17 19:39 Dose: 2.5 mg Amlodipine Besylate (Norvasc Tab*) 5 mg PO DAILY [facility] Last Admin: 11/25/17 09:31 Dose: 5 mg Aspirin (Aspirin 81 Mg Chew Tab*) 81 mg PO DAILY [facility] Last Admin: 11/25/17 09:31 Dose: 81 mg Atorvastatin Calcium (Lipitor*) 20 mg PO BEDTIME [facility] Last Admin: 11/24/17 20:53 Dose: 20 mg Cyanocobalamin (Vitamin B12 Tab*) 500 mcg PO DAILY [facility] Last Admin: 11/25/17 09:31 Dose: 500 mcg Docusate Sodium (Colace Cap*) 100 mg PO BID [facility] Last Admin: 11/25/17 09:32 Dose: 100 mg Folic Acid (Folvite Tab*) 1 mg PO DAILY [facility] Last Admin: 11/25/17 09:31 Dose: 1 mg Ceftriaxone Sodium 1 gm/ (Sodium Chloride) 50 mls @ 200 mls/hr IVPB Q24H [facility] Magnesium Oxide (Magox 400 Tab*) 400 mg PO BID [facility] Last Admin: 11/25/17 09:31 Dose: 400 mg Methylprednisolone Sodium Succinate (Solu-Medrol 40 Mg) 40 mg IV Q24HR [facility] Stop: 11/26/17 09:01 Last Admin: 11/25/17 09:33 Dose: 40 mg Metoprolol Succinate (Toprol Xl Tab*) 25 mg PO BID [facility] Last Admin: 11/25/17 09:31 Dose: 25 mg Multivitamins/Minerals (Theragran/Minerals Tab*) 1 tab PO DAILY [facility] Last Admin: 11/25/17 09:32 Dose: 1 tab Ondansetron HCl (Zofran Inj*) 4 mg IV Q4H PRN PRN Reason: NAUSEA/VOMITING Oxycodone/Acetaminophen (Percocet 5/325 Tab*) 1 tab PO Q4H PRN PRN Reason: Pain Last Admin: 11/21/17 03:50 Dose: 1 tab Sertraline HCl (Zoloft*) 50 mg PO DAILY [facility] Last Admin: 11/25/17 09:31 Dose: 50 mg Thiamine HCl (Vitamin B-1 Tab*) 100 mg PO DAILY [facility] Last Admin: 11/25/17 09:32 Dose: 100 mg Zolpidem Tartrate (Ambien Tab*) 5 mg PO BEDTIME [facility] Last Admin: 11/24/17 20:53 Dose: 5 mg Vital Signs - 8 hr 11/25/17 11/25/17 11/25/17 07:52 08:00 11:48 Temperature 97.2 F 97.6 F Pulse Rate 81 77 Respiratory 14 20 17 Rate Blood Pressure 110/65 116/66 (mmHg) O2 Sat by Pulse 98 100 Oximetry Oxygen Devices in Use Now: Nasal Cannula Appearance: Patient is a 72yo male who appears stated age and is sitting in the bed in [facility]. Eyes: No Scleral Icterus, PERRLA Ears/Nose/Mouth/Throat: NL Teeth, Lips, Gums, Clear Oropharnyx, Mucous Membranes Moist Neck: NL Appearance and Movements; NL JVP, Trachea Midline Respiratory: Symmetrical Chest Expansion and Respiratory Effort, - - single end expiratory wheeze in RLL. Cardiovascular: NL Sounds; No Murmurs; No JVD, RRR Abdominal: NL Sounds; No Tenderness; No Distention, No Hepatosplenomegaly Lymphatic: No Cervical Adenopathy Extremities: No Clubbing, Cyanosis, - - 3+ edema in RLE, 2+ in LLE. Skin: No Rash or Ulcers, No Nodules or Sclerosis Neurological: Alert and Oriented x 3, NL Sensation, NL Muscle Strength and Tone , - - CN II-XII intact. Result Diagrams: 11/25/17 06:03 11/25/17 06:03 Additional Lab and Data: Lab Results Microbiology and Other Data: Microbiology 11/21/17 15:45 Anaerobic Blood Culture - Preliminary Blood Venous Assess/Plan/Problems-Billing Assessment: This is a 72 y/o male with hx of ETOH abuse with sobriety per patient report for 8 months that reports binge drinking and has been withdrawing from alcohol with respiratory distress, had bacteremia probably due to UTI and is now significantly improved. - Patient Problems (1) Bacteremia Current Visit: Yes Status: Acute Code(s): R78.81 - BACTEREMIA SNOMED Code( s): 1740531 Comment: Due to GBS, now afebrile with no signs of sepsis, repeat BCs negative at this time. Zosyn changed to Ceftriaxone. (2) Metabolic encephalopathy Current Visit: Yes Status: Acute Code(s): G93.41 - METABOLIC ENCEPHALOPATHY SNOMED Code(s): 94644744 Comment: Resolved (3) Respiratory failure with hypoxia and hypercapnia Current Visit: Yes Status: Acute Code(s): J96.91 - RESPIRATORY FAILURE, UNSPECIFIED WITH HYPOXIA; J96.92 - RESPIRATORY FAILURE, UNSPECIFIED WITH HYPERCAPNIA SNOMED Code(s): 71929638 Comment: Acute, Resolving, Previously needed NIV, still on 2L O2 NC. Respiratory exam benign. Continue Steroids for 2 more doses, inhalers PRN. Wean O2. (4) Sepsis Current Visit: Yes Status: Acute Comment: Likely due to BGS bactremia from urinary source. Resolved. Continue antibiotics. (5) Afib Current Visit: No Status: Acute Code(s): I48.91 - UNSPECIFIED ATRIAL FIBRILLATION SNOMED Code(s): 17198360 Comment: Continue metoprolol. Resume Eliquis tomorrow if Platelets remain normal. Rate controlled. (6) Alcohol withdrawal Current Visit: No Status: Acute Code(s): F10.239 - ALCOHOL DEPENDENCE WITH WITHDRAWAL, UNSPECIFIED SNOMED Code(s): 354597934 Comment: Returned to baseline. (7) Chronic alcoholism Current Visit: No Status: Acute Code(s): F10.20 - ALCOHOL DEPENDENCE, UNCOMPLICATED SNOMED Code(s): 92702837 Comment: Outpatient psych referral already being set up. Patient was recently managed with Disulfiram which he would be interested in resuming. (8) DVT prophylaxis Current Visit: No Status: Acute Code(s): LJP6814 - SNOMED Code(s): 207366220 Comment: SCDS, resume Eliquis tomorrow if platelets remain stable. US of LE pending. History of B/L DVT, possible post thrombotic syndrome. (9) Depression Current Visit: No Status: Chronic Code(s): F32.9 - MAJOR DEPRESSIVE DISORDER , SINGLE EPISODE, UNSPECIFIED SNOMED Code(s): 00867261 Comment: Continue zoloft. Patient is amenable to following up with psychiatry outpatient. (10) History of pulmonary embolus (PE) Current Visit: No Status: Acute Code(s): Z86.711 - PERSONAL HISTORY OF PULMONARY EMBOLISM SNOMED Code(s): 010214323 Comment: No PE, resume eliquis tomorrow. Worsening pulmonary hypertension from 2016. Possibly due to previous PEs. (11) Full code status Current Visit: No Status: Acute Code(s): Z78.9 - OTHER SPECIFIED HEALTH STATUS SNOMED Code(s): 134303833 Status and Disposition: Remain inpatient.
[2017-11-25] MEDS: cefTRIAXone(*) 1 GM in NS 0.9% 50 ML* 50 ML IVPB SCH (15:36)
--- NOTE | 2017-11-25 15:40 | RAD ---
Indication: Right leg edema. Duplex Doppler sonography of the deep venous system of the right lower extremity deep venous system was performed. Bilaterally the common femoral veins appear patent and compressible. Right proximal greater saphenous vein, proximal deep femoral vein, femoral vein, popliteal vein, posterior tibial veins and peroneal veins appear patent and compressible. IMPRESSION: NO EVIDENCE OF DEEP VENOUS THROMBOSIS IS IDENTIFIED.
[2017-11-25] MEDS: Zolpidem TAB* 5 MG PO SCH (20:19)
[2017-11-25] MEDS: Atorvastatin* 20 MG TAB PO SCH (20:19)
[2017-11-25] MEDS: oxyCODONE/Acetamin 5/325 MG* TAB PO PRN (22:50)
[2017-11-26 06:50] LABS: Hematocrit 33 % (42-52); Hemoglobin 11.7 g/dl (14.0-18.0); Mean Corpuscular HGB Conc 35 g/dl (31-36); Mean Corpuscular Hemoglobin 36 pg (27-31); Mean Corpuscular Volume 101 fL (80-94); Mean Platelet Volume 8.8 um3 (7.4-10.4); Platelet Count 216 10^3/ul (150-450); Red Blood Count 3.29 10^6/ul (4.0-5.4); Red Cell Distribution Width 15 % (10.5-15)
[2017-11-26 06:59] LABS: EGFR Non-African American 72.2 (>60)
[2017-11-26] MEDS: methylPREDNISolone SOD 40 MG* 1 ML VIAL IV SCH (08:32)
[2017-11-26] MEDS: Sertraline* 50 MG TAB PO SCH (08:33)
[2017-11-26] MEDS: Multivitamins/Minerals TAB PO SCH (08:33)
[2017-11-26] MEDS: Docusate CAP* 100 MG PO SCH (08:33)
[2017-11-26] MEDS: Folic Acid TAB* 1 MG PO SCH (08:33)
[2017-11-26] MEDS: Cyanocobalamin TAB* 500 MCG PO SCH (08:33)
[2017-11-26] MEDS: Magnesium Oxide TAB* 400 MG PO SCH (08:34)
[2017-11-26] MEDS: Thiamine TAB* 100 MG TAB PO SCH (08:34)
[2017-11-26] MEDS: Aspirin 81 mg CHEW TAB* 81 MG TAB.CHEW PO SCH (08:34)
[2017-11-26] MEDS: amLODIPine TAB* 5 MG PO SCH (08:34)
[2017-11-26] MEDS: Metoprolol Succinate XL TAB* 25 MG PO SCH (08:34)
[2017-11-26] MEDS ORDERED: Apixaban* 5 MG TAB PO SCH (10:54)
--- NOTE | 2017-11-26 11:39 | CONS ---
CONSULTATION REPORT: DATE OF CONSULT: 11/26/17 REQUESTING PROVIDER: CRISTÓBAL Candelario CONSULTING SERVICE: Infectious Disease. REASON FOR CONSULT: Group B strep bacteremia. IMPRESSION: 1. Encephalopathy was present on admission, resolved. 2. Group B strep in 1/4 blood culture bottles from 11/21/17; on the 11/20/17 four out of 4 bottles were negative. A urine culture on 11/20/17 grew group B strep greater than 100,000 colonies. Urinalysis showed blood. He has a prosthetic right hip, which is asymptomatic. He has no other prosthetic material present. No foot cellulitis or wound. Followup cultures were negative. A transthoracic echocardiogram was negative. I do not find evidence of another deep site of infection and this may all be related to a group B strep urinary tract infection which is slightly unusual in a man, unless related to prostatitis. 3. Obesity. 4. Alcohol abuse, question cirrhosis, may have led to this group B strep infection causing bacteremia. RECOMMENDATIONS: He has had 5 days of IV antibiotics, can switch him to Levaquin 500 mg by mouth once a day for 14 days to cover the possibility of acute prostatitis. Please check an abdominal ultrasound to be sure there is no stone disease or hydronephrosis. HISTORY OF PRESENT ILLNESS: This is a 72-year-old man with alcohol abuse, admitted with change in mental status on 11/20/17. He had malaise and fever at that time. He cannot provide much of the history of those couple of days, which is obtained instead from review of the medical record and discussion with CRISTÓBAL Candelario. He apparently had relapse in his alcohol abuse since [facility] , was drinking heavily and then earlier last week had some fever, malaise, could not quite identify what was wrong, but knew something was not right, so he came to the hospital on 11/20/17. Blood cultures that day were negative. A urine culture grew group B strep. The next afternoon, he had another low-grade fever, so blood cultures were repeated and 2 of those bottles grew group B strep. Followup cultures drawn on 11/24/17 are negative. He had a transthoracic echocardiogram that was negative for vegetation. He has been on initially vanco and Zosyn and then ceftriaxone, which he has tolerated well. He has no spine pain or joint pain including his right prosthetic hip. He has no pacemaker or heart valve replacement. He has not had an infection requiring hospitalization. PAST MEDICAL HISTORY: 1. Atrial fibrillation. 2. DVT/PE, treated with Eliquis. 3. Retroperitoneal bleed, treated at [facility]. 4. Status post right hip arthroplasty. MEDICATIONS: 1. Tylenol. 2. Amlodipine. 3. Aspirin. 4. Lipitor. 5. Vitamin B12. 6. Docusate. 7. Folic acid. 8. Metoprolol. 9. Oxycodone. 10. Ceftriaxone 1 g a day. 11. Sertraline. 12. Thiamine. 13. Ambien. ALLERGIES: No known drug allergies. FAMILY HISTORY: No recurrent infections. SOCIAL HISTORY: Lives in [place]. No travel. No sick contacts. Recent relapse of alcohol abuse. REVIEW OF SYSTEMS: All negative to a 14-point review of systems except as noted above. PHYSICAL EXAM: Vital Signs: Temperature 36, heart rate 70, respiratory rate 16 , blood pressure 140/70, oxygen saturation 97% on room air. In general, he is awake, not in distress. Neurologic: He is oriented x3. Follows all commands. HEENT: There is no conjunctival hemorrhage. Oropharynx without lesions. Neck is supple without mass. Lymph Nodes: There is no cervical, supraclavicular, inguinal, axillary, or epitrochlear lymphadenopathy. Heart has regular rate and rhythm without murmurs, rubs, or gallops. Lungs are clear to auscultation bilaterally. Abdomen: Soft, nontender, nondistended. There are bowel sounds present. Skin: There is no rash or splinter hemorrhages. Musculoskeletal: There is no spine tenderness to palpation. There is no joint synovitis. There is no right hip pain with log roll. He has no foot wounds. LABORATORY DATA: White blood cell count 19, hemoglobin 11.7, platelets 216, MCV 101, creatinine 1. Please see impressions and recommendations as outlined above. Thanks for asking me to see Mr. Bethea in consultation. [id number]/[facility] #: [id number] TIAN
[2017-11-26 11:52] VITALS: BP 124/64
--- NOTE | 2017-11-26 13:31 | RAD ---
Indication: Urinary tract infection. Bacteremia. Comparison: August 16, 2017 CT Technique: Ultrasound kidneys and urinary bladder. Report: 11.6 x 5.8 x 4.7 cm RIGHT kidney. Normal renal cortical echogenicity. No focal lesions, conspicuous stones, or hydronephrosis. 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 Normal renal cortical echogenicity. No conspicuous focal lesions, stones, or hydronephrosis. Prevoid urinary bladder volume estimated at 182 mL favoring incomplete distention. 2.8 mm normal limits bladder wall thickness. No focal bladder lesions evident. Bilateral ureteral jets documented. Post void residual volume estimated at 14.2 mL. Upper normal range prostate volume estimated at 28 mL. IMPRESSION: 1. Negative for obstructive uropathy or conspicuous urolithiasis. 2. No visualized renal cortical lesions or urinary bladder uroepithelium lesions. 3. Post void residual volume at the urinary bladder estimated at 14.2 mL.
[2017-11-26] MEDS: cefTRIAXone(*) 1 GM in NS 0.9% 50 ML* 50 ML IVPB SCH (13:40)
--- NOTE | 2017-11-27 00:20 | DS ---
CC: Angelina Buchanan MD; Onur Rodriguez MD* DISCHARGE SUMMARY: DATE OF ADMISSION: 11/20/17 DATE OF DISCHARGE: 11/26/17 PRIMARY CARE PROVIDER: Onur Rodriguez MD MY ATTENDING WHILE IN THE HOSPITAL: Angelina Buchanan MD* (dictated by CRISTÓBAL Bagley). PRIMARY DISCHARGE DIAGNOSES: 1. Alcohol withdrawal. 2. Acute hypoxic respiratory failure. SECONDARY DISCHARGE DIAGNOSES: 1. Multiple deep vein thromboses and pulmonary emboli. 2. Leg swelling. 3. Chronic alcohol abuse. 4. History of retroperitoneal bleed in 2016. STUDIES DONE WHILE IN THE HOSPITAL: Chest x-ray from 11/20/17 read as hyperinflation, no active disease. Chest and thorax CTA from 11/20/17 read as: No evidence for pulmonary embolus. No definite alveolar consolidation, though some minimal pleural thickening noted. There is cardiomegaly without pericardial effusion. Chest x-ray from 11/21/17 read as: Low lung volumes, small bibasilar infiltrates. Chest x-ray from 11/23/17 read as cardiomegaly. Transthoracic echocardiogram for 11/23/17 read as left ventricular systolic function with low limits of normal. Estimated ejection fraction 50% to 55%. Global left ventricular wall motion and contractility within normal limits. Left ventricular chamber size is normal. Mild concentric left ventricular hypertrophy is observed. Left atrium is severely dilated. Right ventricle is mild to moderately dilated. The right ventricle global systolic function is mildly reduced. The right atrial cavity is severely dilated. There is trace tricuspid regurgitation. There is evidence of mild to moderate pulmonary hypertension since the echocardiogram completed 10/09/17. Pertinent changes are prior normal right ventricular size and systolic function noted. Venous Doppler study from 11/25/17 read as evidence of deep vein thrombosis identified. Bilateral ultrasound from 11/26/17 read as: Negative for obstructive uropathy or conspicuous urolithiasis, no visualized renal cortical lesions or urinary bladder uroepithelial lesions. Postresidual volume of the urinary bladder estimated at 14.2 mL. MEDICATIONS AT DISCHARGE: 1. Aspirin 81 mg p.o. daily. 2. Eliquis 5 mg p.o. b.i.d. 3. Folic acid 1 mg p.o. daily. 4. Vitamin B12 500 mcg p.o. daily. 5. Magnesium oxide 400 mg p.o. b.i.d. 6. Lovaza 2 g p.o. b.i.d. 7. Metoprolol succinate 25 mg p.o. b.i.d. 8. Sertraline 50 mg p.o. daily. 9. Thiamine 100 mg p.o. daily. 10. Atorvastatin 20 mg p.o. at bedtime. 11. Levofloxacin 500 mg p.o. daily x14. NEW MEDICATIONS AT DISCHARGE: Levofloxacin. The patient was encouraged to resume his Antabuse at previous dose, which is unknown. MEDICATIONS DISCONTINUED AT DISCHARGE: None. HOSPITAL COURSE: This is a brief summary of the patient's presentation. For more details, please see history and physical from CRISTÓBAL Wang from . In brief, the patient is a 72-year-old male with past medical history significant for above who presented to the emergency room with complaints of alcohol intoxication on 11/17/17, but was sent home and stopped drinking that day. He felt okay on 11/18/17, but started to feel shaky and agitated. The patient had been drinking about a pint of gin on a daily basis from 11/04/17 to 11/17/17. The patient had no homicidal or suicidal ideation. The patient received Ativan in the emergency department and was admitted to the hospital for management of alcohol withdrawal. The patient had mildly decreased hemoglobin, decreased platelet count at 91, increased INR at 1.25. It is unknown whether the patient had been taking his Eliquis or not. The patient had ABG showing a pO2 of 57. The patient also had a sodium of 132, carbon dioxide of 21, magnesium of 1.2, bilirubin 1.2. B12 and folate within normal limits. The patient on 11/21/17 was placed on BiPAP for what was believed to be hypoventilation either from obstructive sleep apnea or benzodiazepines. The patient was saturating poorly on CPAP. The patient was seen in consultation by Dr. Quick, the metal model builder, and was transferred to the ICU and placed on BiPAP. The patient's urine grew group B strep, which later grew in his blood cultures and there was concern for infectious cause of his hypoxia. The patient was started on broad-spectrum antibiotics with Zosyn and vancomycin. The patient had a chest x-ray read as above. There was concern for aspiration pneumonia. The patient was started on bronchodilators. The patient continued with withdrawal and to be on noninvasive ventilation. The patient had fevers up to 101 at this point and was continued on broad-spectrum IV antibiotics. The patient was changed to an aerosol mask on 11/20/17. The patient was given CPAP at night. The patient at this time was hemodynamically stable. The patient's platelet count dropped down to low of 56. On 11/22/17, the patient's hemoglobin was low at 11.6. The patient had no signs of active bleeding. The patient's creatinine increased to a high of 1.31 and subsequently decreased. The patient's bilirubin initially increased to 1.5 and was not rechecked. The patient never had lactic acidosis. The patient was able to be transferred out of the ICU with gradual improvement in his mental status and respiratory status. The patient was hypertensive at that point and Norvasc was added to his medications. The patient had transthoracic echocardiogram read as above. The patient had swelling in his legs which was not noted until part way through his hospitalization, but he later stated was chronic for him. The patient's Eliquis was held due to thrombocytopenia in the hospital and was able to be resumed on 11/26/17. The patient's vancomycin was discontinued on . The patient's Zosyn was changed to ceftriaxone on 11/26/17. The patient was seen in consultation by Dr. Israel Hunter of Infectious Disease and he recommended 2 weeks of levofloxacin oral outpatient for possible prostatitis. The patient had no other signs of alcohol withdrawal. The patient was committed to abstinence. The patient was amenable and stable for discharge on 11/26/17. There was concern for stones or abscess in the patient' s urinary tract and ultrasound was obtained as above showing neither of the above. PHYSICAL EXAM ON DATE OF DISCHARGE: General: The patient is a 72-year-old male , who appears stated age and staying comfortable in bed. No acute distress. Vital signs at the time of discharge: Temperature 97.3, pulse rate 103, respiratory rate 18, oxygen saturation 98% on room air, blood pressure 124/64. HEENT: Head: Normocephalic, atraumatic. Sclerae intact. No conjunctival injection. Nasal mucosa moist. Oral mucosa moist. No pharyngeal erythema, discharge, or exudates. Neck: Supple, nontender. No lymphadenopathy. No carotid bruit auscultated. No JVD. Cardiac: Regular rate and rhythm. No clicks, murmurs, gallops, rubs. Pulses 2+ bilaterally in dorsalis pedis, posterior tibialis, and radial areas. 2+ pitting edema in bilateral lower extremities, right slightly greater than left. No calf tenderness. Respiratory : Clear to auscultation bilaterally. No wheezes, rales, or rhonchi. Good air exchange bilaterally. Abdomen: Protuberant, soft, nontender, nondistended. Bowels sounds present, normoactive in all 4 quadrants. No hepatosplenomegaly, no abdominal bruits auscultated. Genitourinary: No suprapubic tenderness or CVA tenderness. Skin: Clean, dry and intact. No rash. Neuro: Cranial nerves II through XII intact. No focal deficits. Psychiatric: Pleasant and cooperative. LABORATORY DATA: On day of discharge, white blood cell count 9.0, hemoglobin 11.7, hematocrit 33, platelet count 216. Sodium 137, chloride 103, BUN 26, creatinine 1.02, calcium 8.1, glucose 125. DISCHARGE PLAN: The patient will be discharged to home. The patient was encouraged to engage in strict alcohol abstinence, which he is in agreement to. The patient has found Antabuse helpful for this and stated that he would like to continue taking it when he got home. He was encouraged to restart his prior dose and follow up closely with his primary care provider for monitoring of this regimen. The patient has been continued on his Eliquis. For his DVTs, the patient has been encouraged to followup with Dr. Moran for evaluation of his issues with peripheral vascular circulation given the patient's history of DVT and PE. The patient should have a heart healthy diet without caffeine. The patient should engage in activities as tolerated. The patient should keep his legs elevated as much as possible. The patient should return to the hospital for alarming symptoms such as chest pain, seizures or significant increased shortness of breath as well as fevers that do not respond to medication. TIME SPENT: Approximately 60 minutes were spent on the discharge, 30 of which was spent [id number] with the patient and obtaining history and physical and discussing treatment plan. CRISTÓBAL BAGLEY [id number]/CPS #: [id number] TIAN
== END 2017-11-26 15:15 | disposition home or self-care (01) | DRG 871 ==
LOC: ED 10:54 → MED 13:01 → ICU 11-21 15:33 → MED 11-24 14:04
PROVIDERS: ADMIT Internal Medicine; ATTEND Internal Medicine
PROC: 5A09357 Assistance with Respiratory Ventilation, Less than 24 Consecutive Hours, Continuous Positive Airway Pressure (ICD-10-PCS; principal; 2017-11-21)
DX: A40.1 Sepsis due to streptococcus, group B (principal); J96.01 Acute respiratory failure with hypoxia; J96.02 Acute respiratory failure with hypercapnia; G93.41 Metabolic encephalopathy; F10.239 Alcohol dependence with withdrawal, unspecified; I82.409 Acute embolism and thrombosis of unspecified deep veins of unspecified lower extremity; N17.9 Acute kidney failure, unspecified; N39.0 Urinary tract infection, site not specified; I10 Essential (primary) hypertension; R65.20 Severe sepsis without septic shock; I48.91 Unspecified atrial fibrillation; E78.00 Pure hypercholesterolemia, unspecified; Z96.641 Presence of right artificial hip joint; F41.9 Anxiety disorder, unspecified; F32.9 Major depressive disorder, single episode, unspecified; Y90.9 Presence of alcohol in blood, level not specified; E83.42 Hypomagnesemia; E86.0 Dehydration; E78.5 Hyperlipidemia, unspecified; D69.6 Thrombocytopenia, unspecified; D64.9 Anemia, unspecified; E66.9 Obesity, unspecified; J98.01 Acute bronchospasm; I27.20 Pulmonary hypertension, unspecified; I07.1 Rheumatic tricuspid insufficiency; N41.9 Inflammatory disease of prostate, unspecified; B95.1 Streptococcus, group B, as the cause of diseases classified elsewhere; Z91.5 Personal history of self-harm; Z86.19 Personal history of other infectious and parasitic diseases; Z68.37 Body mass index [BMI] 37.0-37.9, adult; Z86.711 Personal history of pulmonary embolism; Z79.82 Long term (current) use of aspirin; Z79.01 Long term (current) use of anticoagulants
CPT/HCPCS: 36415; 36600; 71045; 71046; 71275; 76770; 80048; 80053; 80202; 80320; 80329; 81003; 81015; 82607; 82746; 82803; 83605; 83735; 84443; 84484; 85025; 85027; 85060; 85610; 87040; 87077; 87086; 87184; 87186; 87205; 87502; 93005; 93306; 94640; 94660; 94760; 99283; A9270-GY; C8929; G0480; G8978-GP-CI; G8979-GP-CH; J0696; J2060; J2405; J2543; J2920; J2930; J3370; J3411; J3475; J3490; Q9967

== ENCOUNTER 2017-12-09 17:32 | Emergency (ER) | payer MEDICARE, OTHER ==
[2017-12-09 19:08] LABS: ABS Basophils 0.1 10^3/ul (0-0.2); ABS Eosinophils 0.1 10^3/ul (0-0.6); ABS Monocytes 0.3 10^3/ul (0-0.8); ABS Neutrophils 4.1 10^3/ul (1.5-7.7); ABS Nucleated RBC 0 10^3/ul; Hematocrit 35 % (42-52); Hemoglobin 11.8 g/dl (14.0-18.0); Lymphocyte % 30.5 % (25-47); Mean Corpuscular HGB Conc 34 g/dl (31-36); Mean Corpuscular Hemoglobin 34 pg (27-31); Mean Corpuscular Volume 102 fL (80-94); Mean Platelet Volume 6.8 um3 (7.4-10.4); Nucleated Red Blood Cells % 0; Platelet Count 266 10^3/ul (150-450); Red Blood Count 3.46 10^6/ul (4.0-5.4); Red Cell Distribution Width 15 % (10.5-15); White Blood Count 6.6 10^3/ul (3.5-10.8)
[2017-12-09 19:16] LABS: INR 1.42 (0.77-1.02)
[2017-12-09 19:23] LABS: EGFR Non-African American 50.9 (>60)
--- NOTE | 2017-12-09 19:28 | RAD ---
INDICATION: Chest pain. COMPARISON: Comparison is made with a prior study from November 23, 2017. TECHNIQUE: A portable view of the chest was obtained. FINDINGS: The heart is moderately enlarged and unchanged from the prior exam. The lungs are clear. No pleural effusion is seen. There appear to be subacute to chronic fractures of multiple left posterior ribs. IMPRESSION: CARDIOMEGALY, UNCHANGED.
--- NOTE | 2017-12-09 19:58 | ED ---
Josef Gallegos Elizabeth, scribed for Nino Wilburn MD on 12/09/17 at 1815 . Lower Extremity - HPI Summary HPI Summary: This patient is a 72 year old M presenting to [facility] via EMS with a chief complaint of chronic hip pain for 10 years. Pt notes that the pain has been getting worse recently. The patient rates the pain 10/10 in severity. Symptoms aggravated by movement. Symptoms alleviated by nothing. Patient is intoxicated. Pt has a hx of EtOH abuse. Patient reports that he has had a hip replacement. - History of Current Complaint Chief Complaint: EDExtremityLower Stated Complaint: RT LEG PAIN Time Seen by Provider: 12/09/17 17:42 Hx Obtained From: Patient Mechanism Of Injury: Unknown Onset of Pain: Days Onset/Duration: Worse Since - recently Severity Initially: Moderate Severity Currently: Moderate Pain Intensity: 10 Pain Scale Used: 0-10 Numeric Timing: Constant Location: Is Discrete @ - hip Character Of Pain: Unable To Describe Aggravating Factor(s): Movement Alleviating Factor(s): Nothing Able to Bear Weight: Yes - Allergies/Home Medications Allergies/Adverse Reactions: Allergies Allergy/AdvReac Type Severity Reaction Status Date / Time No Known Allergies Allergy Verified 12/09/17 19:12 PMH/Surg Hx/FS Hx/Imm Hx Endocrine/Hematology History: Denies: Hx Anticoagulant Therapy, Hx Blood Disorders, Hx Blood Transfusions, Hx Bone Marrow Disease, Hx Diabetes, Hx Systemic Lupus Erythematosus, Hx Sickle Cell Disease, Hx Thyroid Disease, Hx Anemia, Hx Unexplained Bleeding, Other Endocrine/Hematological Disorders Cardiovascular History: Reports: Hx Atrial Fibrillation, Hx Deep Vein Thrombosis , Hx Embolism - Pulmonary Embolism, Hx Hypercholesterolemia, Hx Hypertension - TAKES NO MEDS, Other Cardiovascular Problems/Disorders - HIGH CHOLESTEROL Denies: Hx Aneurysm, Hx Angina, Hx Auto Implanted Cardiovert Defib, Hx Cardiac Arrest, Hx Cardiomegaly, Hx Congenital Heart Disease, Hx Congestive Heart Failure, Hx Coronary Artery Disease, Hx Hypotension, Hx Pacemaker/ICD, Hx Peripheral Vascular Disease, Hx Rheumatic Fever, Hx Syncope, Hx Valvular Heart Disease Respiratory History: Reports: Hx Pleural Effusion, Hx Pulmonary Embolism Denies: Hx Asthma, Hx Chronic Bronchitis, Hx Chronic Obstructive Pulmonary Disease (COPD), Hx Cystic Fibrosis, Hx Lung Cancer, Hx Pneumonia, Hx Pulmonary Edema, Hx Seasonal Allergies, Hx Sleep Apnea, Other Respiratory Problems/ Disorders GI History: Denies: Hx Cirrhosis, Hx Crohn's Disease, Hx Diverticulosis, Hx Gall Bladder Disease, Hx Gastroesophageal Reflux Disease, Hx Gastrointestinal Bleed, Hx Hiatal Hernia, Hx Irritable Bowel, Hx Jaundice, Hx Obstructive Bowel, Hx Ileostomy, Hx Pyloric Stenosis, Hx Ulcer, Other GI Disorders History: Denies: Hx Acute Renal Failure, Hx Benign Prostatic Hyperplasia, Hx Chronic Renal Failure, Hx Dialysis, Hx Kidney Infection, Hx Kidney Stones, Hx Renal Disease, Other Problems/Disorders Musculoskeletal History: Reports: Other Musculoskeletal History - R hip relpacement Denies: Hx Arthritis, Hx Back Problems, Hx Bursitis, Hx Congenital Bone Abnormalities, Hx Fibromyalgia, Hx Gout, Hx Orthopedic Injury, Hx Osteoporosis, Hx Scoliosis, Hx Tendonitis Sensory History: Denies: Hx Cataracts, Hx Contacts or Glasses, Hx Eye Injury, Hx Eye Prosthesis, Hx Glaucoma, Hx Legally Blind, Hx Macular Degeneration, Hx Vision Problem, Hx Deafness, Hx Hearing Aid, Hx Hearing Problem, Other Sensory Impairments Opthamlomology History: Denies: Hx Cataracts, Hx Contacts or Glasses, Hx Eye Injury, Hx Eye Prosthesis, Hx Glaucoma, Hx Legally Blind, Hx Macular Degeneration, Hx Vision Problem, Other Sensory Impairments Neurological History: Reports: Other Neuro Impairments/Disorders - Bilateral foot numbness Denies: Hx Dementia, Hx Developmental Delay, Hx Headaches, Hx Migraine, Hx Nerve Disease, Hx Seizures, Hx Spinal Cord Injury, Hx Transient Ischemic Attacks (TIA) Psychiatric History: Reports: Hx Anxiety, Hx Depression, Hx Inpatient Treatment , Hx Community Mental Health Tx, Hx Suicide Attempt, Hx Substance Abuse - EtOH Denies: Hx Attention Deficit Hyperactivity Disorder, Hx Eating Disorder, Hx Panic Disorder, Hx Post Traumatic Stress Disorder, Hx Schizophrenia, Hx Bipolar Disorder, Hx of Violent Episodes Against Others, Other Psychiatric Issues/ Disorders - Surgical History Surgery Procedure, Year, and Place: RT HIP REPLACEMENT Hx Anesthesia Reactions: No - Immunization History Date of Tetanus Vaccine: Unk Date of Influenza Vaccine: Unk Infectious Disease History: No Infectious Disease History: Reports: Hx Hepatitis - Reported via blood bank upon donation, Hx Shingles Denies: Hx Clostridium Difficile, Hx Human Immunodeficiency Virus (HIV), Hx of Known/Suspected MRSA, Hx Tuberculosis, History Other Infectious Disease, Traveled Outside the [place] in Last 30 Days - Family History Known Family History: Positive: None Negative: Cardiac Disease, Hypertension, Diabetes - Social History Alcohol Use: Daily Alcohol Amount: gin Hx Substance Use: No Substance Use Type: Reports: None Hx Tobacco Use: No Smoking Status (MU): Never Smoked Tobacco Review of Systems Negative: Epistaxis Negative: Cough Negative: Abdominal Pain Musculoskeletal: Other - hip pain All Other Systems Reviewed And Are Negative: Yes Physical Exam - Summary Physical Exam Summary: Appearance: The patient is well-nourished in no acute distress and in no acute pain. The patient is clinically intoxicated. Skin: The skin is warm and dry and skin color reflects adequate perfusion. HEENT: The head is normocephalic and atraumatic. The pupils are equal and reactive. The conjunctivae are clear and without drainage. Nares are patent and without drainage. Mouth reveals moist mucous membranes and the throat is without erythema and exudate. The external ears are intact. The ear canals are patent and without drainage. The tympanic membranes are intact. Neck: the neck is supple with full range of motion and non-tender. There are no carotid bruits. There is no neck vein distension. Respiratory: Chest is non-tender. Lungs are clear to auscultation and breath sounds are symmetrical and equal. Cardiovascular: Heart is regular rate and rhythm. There is no murmur or rub auscultated. There is no peripheral edema and pulses are symmetrical and equal. Abdomen: The abdomen is soft and non-tender. There are normal bowel sounds heard in all four quadrants and there is no organomegaly palpated. Musculoskeletal: There is no back tenderness noted. Extremities are non-tender with full range of motion. There is good capillary refill. There is no peripheral edema or calf tenderness elicited. Neurological: Patient is alert and oriented to person, place and time. The patient has symmetrical motor strength in all four extremities. Cranial nerves are grossly intact. Deep tendon reflexes are symmetrical and equal in all four extremities. Psychiatric: The patient has an appropriate affect and does not exhibit any anxiety or depression. Triage Information Reviewed: Yes Vital Signs On Initial Exam: Initial Vitals Temp Pulse Resp BP Pulse Ox 97.9 F 73 14 121/80 95 12/09/17 17:36 12/09/17 17:36 12/09/17 17:36 12/09/17 17:36 12/09/17 17:36 Vital Signs Reviewed: Yes Diagnostics - Vital Signs Vital Signs Temp Pulse Resp BP Pulse Ox 12/09/17 17:36 97.9 F 73 14 121/80 95 - Laboratory Lab Results: Lab Results 12/09/17 12/09/17 12/09/17 Range/Units 18:24 18:24 18:24 WBC 6.6 (3.5-10.8) 10^3/ul RBC 3.46 L (4.0-5.4) 10^6/ul Hgb 11.8 L (14.0-18.0) g/dl Hct 35 L (42-52) % MCV 102 H (80-94) fL MCH 34 H (27-31) pg MCHC 34 (31-36) g/dl RDW 15 (10.5-15) % Plt Count 266 (150-450) 10^3/ul MPV 6.8 L (7.4-10.4) um3 Neut % (Auto) 62.2 (38-83) % Lymph % (Auto) 30.5 (25-47) % [place] % (Auto) 5.1 (0-7) % Eos % (Auto) 1.0 (0-6) % Baso % (Auto) 1.2 (0-2) % Absolute Neuts (auto) 4.1 (1.5-7.7) 10^3/ul Absolute Lymphs (auto) 2.0 (1.0-4.8) 10^3/ul Absolute Monos (auto) 0.3 (0-0.8) 10^3/ul Absolute Eos (auto) 0.1 (0-0.6) 10^3/ul Absolute Basos (auto) 0.1 (0-0.2) 10^3/ul Absolute Nucleated RBC 0 10^3/ul Nucleated RBC % 0 INR (Anticoag Therapy) 1.42 H (0.77-1.02) APTT 35.1 (26.0-36.3) seconds Sodium 139 (139-145) mmol/L Potassium 4.2 (3.5-5.0) mmol/L Chloride 102 (101-111) mmol/L Carbon Dioxide 27 (22-32) mmol/L Anion Gap 10 (2-11) mmol/L BUN 22 (6-24) mg/dL Creatinine 1.38 H (0.67-1.17) mg/dL Est GFR ( Amer) 65.5 (>60) Est GFR (Non-Af Amer) 50.9 (>60) BUN/Creatinine Ratio 15.9 (8-20) Glucose 96 (70-100) mg/dL Lactic Acid (0.5-2.0) mmol/L Calcium 8.6 (8.6-10.3) mg/dL Total Bilirubin 0.40 (0.2-1.0) mg/dL AST 17 (13-39) U/L ALT 8 (7-52) U/L Alkaline Phosphatase 58 (34-104) U/L Ammonia (16-53) mcmol/L Troponin I 0.01 (<0.04) ng/mL C-Reactive Protein 71.49 H (< 5.00) mg/L B-Natriuretic Peptide ( - 100) pg/mL Total Protein 7.3 (6.4-8.9) g/dL Albumin 3.5 (3.2-5.2) g/dL Globulin 3.8 (2-4) g/dL Albumin/Globulin Ratio 0.9 L (1-3) Serum Alcohol 421 H* (<10) mg/dL 12/09/17 12/09/17 Range/Units 18:24 18:24 WBC (3.5-10.8) 10^3/ul RBC (4.0-5.4) 10^6/ul Hgb (14.0-18.0) g/dl Hct (42-52) % MCV (80-94) fL MCH (27-31) pg MCHC (31-36) g/dl RDW (10.5-15) % Plt Count (150-450) 10^3/ul MPV (7.4-10.4) um3 Neut % (Auto) (38-83) % Lymph % (Auto) (25-47) % [place] % (Auto) (0-7) % Eos % (Auto) (0-6) % Baso % (Auto) (0-2) % Absolute Neuts (auto) (1.5-7.7) 10^3/ul Absolute Lymphs (auto) (1.0-4.8) 10^3/ul Absolute Monos (auto) (0-0.8) 10^3/ul Absolute Eos (auto) (0-0.6) 10^3/ul Absolute Basos (auto) (0-0.2) 10^3/ul Absolute Nucleated RBC 10^3/ul Nucleated RBC % INR (Anticoag Therapy) (0.77-1.02) APTT (26.0-36.3) seconds Sodium (139-145) mmol/L Potassium (3.5-5.0) mmol/L Chloride (101-111) mmol/L Carbon Dioxide (22-32) mmol/L Anion Gap (2-11) mmol/L BUN (6-24) mg/dL Creatinine (0.67-1.17) mg/dL Est GFR ( Amer) (>60) Est GFR (Non-Af Amer) (>60) BUN/Creatinine Ratio (8-20) Glucose (70-100) mg/dL Lactic Acid 1.9 (0.5-2.0) mmol/L Calcium (8.6-10.3) mg/dL Total Bilirubin (0.2-1.0) mg/dL AST (13-39) U/L ALT (7-52) U/L Alkaline Phosphatase (34-104) U/L Ammonia 36 (16-53) mcmol/L Troponin I (<0.04) ng/mL C-Reactive Protein (< 5.00) mg/L B-Natriuretic Peptide 225 H ( - 100) pg/mL Total Protein (6.4-8.9) g/dL Albumin (3.2-5.2) g/dL Globulin (2-4) g/dL Albumin/Globulin Ratio (1-3) Serum Alcohol (<10) mg/dL Result Diagrams: 12/09/17 18:24 12/09/17 18:24 Lab Statement: Any lab studies that have been ordered have been reviewed, and results considered in the medical decision making process. - Radiology CXR Xray Interpretation: No Acute Changes - IMPRESSION: CARDIOMEGALY, UNCHANGED. Dr. Wilburn has reviewed this report. Radiology Interpretation Completed By: Radiologist - EKG 18:28 Cardiac Rate: NL - at 70 BPM EKG Rhythm: Atrial Flutter EKG Interpretation: Atrial flutter with controlled response, unchanged from EKG on 11/20/17 Lower Extremity Course/Dx - Course Course Of Treatment: Mr. Bethea was brought to the ED by his girlfriend for severe right hip pain. She is concerned because of his recent infection and she doesn't think that he has been taking his antibiotics at home. He also C/O right hip pain but is bvery intoxicated and I can't get a lot of information out of him. His labs are fairly consistent with those done last week although his INR is creeping up. He will have to sober up to get a good story to know what his disposition will be. - Diagnoses Provider Diagnoses: Alcohol intoxication Discharge - Sign-Out/Discharge Documenting (check all that apply): Sign-Out Patient Signing out patient TO: Ravinder Armstrong - Discharge Plan Condition: Stable Referrals: Onur Rodriguez MD [Primary Care Provider] - - Billing Disposition and Condition Condition: STABLE The documentation as recorded by the Josef quintanilla Elizabeth accurately reflects the service I personally performed and the decisions made by me, Nino Wilburn MD.
[2017-12-09] MEDS ORDERED: LORazepam INJ* 2 MG/ML 1 ML VIAL IV ONE (20:44)
[2017-12-09] MEDS ORDERED: LORazepam TAB(*) 1 MG PO ONE (20:46)
--- NOTE | 2017-12-10 05:37 | ED ---
Cata Gallegos Rebecca, scribed for Ravinder Armstrong MD on 12/09/17 at 2235 . Progress - Progress Note Progress Note: Pt was signed out by Dr. Wilburn, pending dispo, awaiting XR and EtOH metabolism. - Results/Orders Results/Orders: Hip/Pelvis XR: As read by ED physician: Negative: no fracture. Pending official report. Re-Evaluation - Re-Evaluation First Eval Re-Evaluation Time: 05:32 Change: Improved Comment: Pt is awake, alert, oriented and conversational. Pt reports that he is able to ambulate at this time, though he has been experiencing R hip pain for about 4 weeks. Denies fever. States he had a hip replacement 10 years ago. Course/Dx - Course Course Of Treatment: Pt was signed out by Dr. Wilburn, pending dispo, awaiting XR and EtOH metabolism. Hip XR reveals no acute findings. Pt is awake, alert, oriented and conversational. Pt reports that he is able to ambulate at this time , though he has been experiencing R hip pain for about 4 weeks. Denies fever. States he had a hip replacement 10 years ago. Pt will be D/C to home with Dx of alcohol intoxication and right hip pain. He understands and agrees. - Diagnoses Provider Diagnoses: Alcohol intoxication, Right hip pain Discharge - Sign-Out/Discharge Documenting (check all that apply): Discharge/Admit/Transfer - Discharge, Receiving Sign-Out Receiving patient FROM: Nino Wilburn - Discharge Plan Condition: Stable Disposition: HOME Patient Education Materials: Alcohol Intoxication (ED), Hip Pain (ED) Referrals: Onur Rodriguez MD [Primary Care Provider] - 3 Days Additional Instructions: RETURN TO EMERGENCY DEPARTMENT FOR ANY RETURNING OR WORSENING SYMPTOMS. The documentation as recorded by the Cata quintanilla Rebecca accurately reflects the service I personally performed and the decisions made by , Ravinder Armstrong MD.
[2017-12-10 05:56] VITALS: BP 142/102
--- NOTE | 2017-12-10 07:30 | RAD ---
INDICATION: Right hip pain. COMPARISON: Comparison is made with a prior x-ray study of the right hip from March 11, 2004. TECHNIQUE: An AP view of the pelvis and frontal and lateral views of the right hip were obtained. FINDINGS: The patient is status post total right hip replacement surgery. The bones and prostheses are in normal alignment. No fracture is seen. There is no gross evidence for loosening. There is moderate osteoarthritic change in the left hip. IMPRESSION: STATUS POST TOTAL RIGHT HIP REPLACEMENT SURGERY, NO EVIDENCE FOR ACUTE FINDING.
== END 2017-12-10 06:00 | disposition home or self-care (01) ==
LOC: ED 17:32
DX: F10.129 Alcohol abuse with intoxication, unspecified (principal); M25.551 Pain in right hip; I48.91 Unspecified atrial fibrillation; Z86.711 Personal history of pulmonary embolism; Z86.718 Personal history of other venous thrombosis and embolism; I10 Essential (primary) hypertension; I51.7 Cardiomegaly
CPT/HCPCS: 36415; 71045; 80053; 80320; 82140; 83605; 83880; 84484; 85025; 85610; 85730; 86140; 87040; 93005; 99284; A9270-GY; G0480

== ENCOUNTER 2017-12-13 08:06 | Observation (INO) | payer MEDICARE, OTHER ==
[2017-12-13] MEDS ORDERED: oxyCODONE/Acetamin 5/325 MG* TAB PO ONE (09:03)
[2017-12-13 09:29] LABS: ABS Basophils 0.1 10^3/ul (0-0.2); ABS Eosinophils 0.2 10^3/ul (0-0.6); ABS Lymphocytes 1.4 10^3/ul (1.0-4.8); ABS Monocytes 0.3 10^3/ul (0-0.8); ABS Neutrophils 4.8 10^3/ul (1.5-7.7); ABS Nucleated RBC 0 10^3/ul; Eosinophil % 2.4 % (0-6); Hematocrit 34 % (42-52); Hemoglobin 11.6 g/dl (14.0-18.0); Lymphocyte % 20.7 % (25-47); Mean Corpuscular HGB Conc 34 g/dl (31-36); Mean Corpuscular Hemoglobin 35 pg (27-31); Mean Corpuscular Volume 102 fL (80-94); Mean Platelet Volume 6.9 um3 (7.4-10.4); Nucleated Red Blood Cells % 0.1; Platelet Count 170 10^3/ul (150-450); Red Blood Count 3.37 10^6/ul (4.0-5.4); Red Cell Distribution Width 15 % (10.5-15); White Blood Count 6.7 10^3/ul (3.5-10.8)
[2017-12-13 09:40] LABS: INR 1.59 (0.77-1.02)
[2017-12-13 09:46] LABS: EGFR Non-African American 62.9 (>60)
--- NOTE | 2017-12-13 09:53 | RAD ---
INDICATION: Pain and swelling. COMPARISON: November 25, 2017 TECHNIQUE: Duplex interrogation of the right lowerextremity was performed. FINDINGS: Deep veins: The common femoral, great saphenous, profunda femoris, proximal, mid, and distal deep femoral, popliteal, posterior tibial, and peroneal veins are patent. There is normal compressibility, augmentation, and phasic flow. Superficial veins: There are no findings of superficial thrombophlebitis. Popliteal fossa:There is no evidence of a popliteal cyst. Soft tissues:There are no soft tissue abnormalities. IMPRESSION: Normal examination. No evidence of deep venous thrombosis
[2017-12-13] MEDS ORDERED: Iohexol 350* (CONTRAST) 500 ML MDV IV ONE (10:21)
--- NOTE | 2017-12-13 11:46 | RAD ---
INDICATION: EtOH. Slurred speech. COMPARISON: CT brain January 11, 2017 TECHNIQUE: Noncontrast axial source images were acquired from the skull base to the vertex. FINDINGS: Ventricles/sulci: There is cortical atrophy with compensatory dilatation of the CSF spaces. Brain parenchyma: There is mild periventricular and subcortical white matter change compatible with chronic ischemia. Intracranial hemorrhage:None. Extra-axial spaces: There are no abnormal extra axial fluid collections or evidence of extra-axial mass. Calvarium: There is no calvarial fracture or other calvarial abnormality. Scalp: There is no evidence of scalp or extracalvarial soft tissue abnormality. Paranasal sinuses/mastoid: The paranasal sinuses and mastoid air cells are clear. Other: None. IMPRESSION: MODERATE CORTICAL ATROPHY. MINOR CHRONIC MICROVASCULAR ISCHEMIC NO ACUTE FINDINGS
--- NOTE | 2017-12-13 12:06 | RAD ---
INDICATION: Short of breath. Evaluate for pulmonary embolus.] Groin pain. COMPARISON: There are multiple CT examinations the chest. The most recent examination and is November 20, 2017; CTA of the abdomen and pelvis 08/16/2017 and 01/25/2016 CT of abdomen and pelvis. TECHNIQUE: Axial source images were obtained from the thoracic inlet to the symphysis pubis following administration of oral and intravenous contrast. CT angiographic technique was utilized for imaging of the chest with injection of 98 mL Omnipaque 350. Coronal and sagittal reconstructed images were acquired. CHEST FINDINGS: Neck/thyroid: The visualized neck to include the thyroid appear normal. Chest wall: There are no acute abnormalities of the bony thorax or chest wall. There is no supraclavicular, infraclavicular, or axillary lymphadenopathy. Lungs : There are no pulmonary parenchymal masses or infiltrates. There is minor gravity dependent atelectasis in the lung bases. The pulmonary interstitium appears normal. There are no endobronchial lesions. Cardiomediastinal structures: The heart is normal mildly enlarged. There is no pericardial effusion. There is no evidence of aortic aneurysm or dissection. There are aortic intimal and coronary artery calcifications. The pulmonary vessels appear normal. There is no CT evidence of acute pulmonary embolic disease. There is no mediastinal or hilar adenopathy. The esophagus appears normal. Pleura : There are no pleural-based masses or effusions. ABDOMINAL/PELVIC FINDINGS: Liver: The liver is normal in size. There are no masses. There is no ductal dilatation. Gallbladder: There are no calcified gallstones. There is no evidence of wall thickening or pericholecystic fluid. Spleen: The spleen is normal in size. There are no masses. Pancreas: There is no evidence of pancreatic mass or ductal dilatation. Adrenal glands: There is no evidence of adrenal mass. Kidneys: The kidneys are normal in size and position. There are prompt nephrograms and there is prompt excretion bilaterally. There are no renal parenchymal masses. There is no evidence of nephrolithiasis. There are bladder presumed embolization coils in the left perirenal space producing streak artifact. The appearance is unchanged there is mild diffuse perinephric stranding appearing slightly less conspicuous than noted previously Adenopathy: There is no evidence of adenopathy by size criteria. Fluid collections: There are no free or localized fluid collections. Vessels:The aorta and IVC appear normal GI tract: There are no CT abnormalities the upper GI tract. There are scattered diverticula involving the sigmoid and descending colon. Pelvic organs: The prostate and seminal vesicles appear normal Bladder: There are no bladder masses. Abdominal and pelvic soft tissues: The extraperitoneal abdominal and pelvic soft tissues appear normal.. Osseous structures: There is no acute osseous change. There is right knee arthroplasty producing beam hardening artifact. Other: There is a moderate-sized right-sided iliopsoas hematoma. A majority of the hemorrhagic component involves the iliacus muscle. The hematoma is estimated to measure approximately 6.5 x 3.1 x 4.2 cm IMPRESSION: 1. No CT evidence of acute pulmonary embolic disease. 2. Right-sided iliopsoas hematoma. 3. Presumed coil embolization left perinephric region. No interval change. 4. Scattered diverticula. 5. Right hip arthroplasty. Findings called to ED.
[2017-12-13] MEDS ORDERED: LORazepam INJ* 2 MG/ML 1 ML VIAL IV PUSH ONE (13:00)
[2017-12-13] MEDS ORDERED: PROCHLORPERAZINE INJ 5 MG/ML 2 ML VIAL IV ONE (13:00)
[2017-12-13] MEDS ORDERED: Thiamine IV* 100 MG/ML 2 ML VIAL IV ONE (15:03)
[2017-12-13] MEDS ORDERED: chlordiazePOXIDE CAP* 25 MG PO PRN (15:04)
[2017-12-13] MEDS ORDERED: LORazepam INJ* 2 MG/ML 1 ML VIAL IV PUSH PRN (15:06)
[2017-12-13] MEDS ORDERED: Ondansetron ODT TAB* 4 MG PO PRN (15:06)
--- NOTE | 2017-12-13 15:25 | ADMNOTE ---
Subjective Date of Service: 12/13/17 Interval History: ADMISSION HISTORY AND PHYSICAL EXAM: Allergies Allergy/AdvReac Type Severity Reaction Status Date / Time No Known Allergies Allergy Verified 12/09/17 19:12 Home Medications Medication Instructions Recorded Confirmed Type Apixaban* [Eliquis*] 5 mg PO BID #60 tab 10/11/15 12/13/17 Rx Aspirin 81 mg CHEW TAB* 81 mg PO DAILY #30 tab.chew 10/11/15 12/13/17 Rx Cyanocobalamin TAB* [Vitamin B12 500 mcg PO DAILY #30 tab 10/11/15 12/13/17 Rx TAB*] Folic Acid TAB* [Folvite TAB*] 1 mg PO DAILY #30 tab 10/11/15 12/13/17 Rx Magnesium Oxide TAB* [MagOx 400 400 mg PO BID 12/15/15 12/13/17 History TAB*] Metoprolol Succinate XL TAB* 25 mg PO BID 12/15/15 12/13/17 History [Toprol XL TAB*] Inpgn-9-Duld Ethyl Esters (NF) 2 gm PO BID 12/15/15 12/13/17 History [Lovaza (NF)] Sertraline* [Zoloft*] 50 mg PO DAILY 12/15/15 12/13/17 History Thiamine TAB* [Vitamin B-1 TAB 100 100 mg PO DAILY tab 02/12/16 12/13/17 Rx MG*] HPI: The patient states he came here because of his alcoholism and his RLQ pain. He has had the RLQ pain for about 4 weeks. He says he has been to alcohol rehab "too many times to count." He drinks ? a quart of gin daily. He denies blackouts or falls or any trauma. Family History: Findings - father had CAD. Social History: Findings - x 6 yrs. Alcohol as in hpi. Never smoked. SDM is his sister Jocelin Bethea. No children Review of Systems - Review of Systems Constitutional Symptoms: Negative: Weight Gain, Weight Loss, Weakness, Fatigue, Fever, Night Sweats, Unexplained Falls, Other Dermatology: Positive: Normal HEENT: Positive: Normal Eyes: Positive: Normal Thyroid: Positive: Normal Pulmonary: Positive: Normal Gastroenterology: Positive: Abdominal Pain Genital - Urinary: Positive: Normal Musculoskeletal: Negative: Joint Pain, Joint Stiffness, Arthritis, Osteoporosis, Low Back Pain , Sciatica, Joint Deformities, Kyphoscoliosis, Other Endocrinology: Positive: Normal Neurology: Positive: Normal Psychiatry: Positive: Normal Allergic/Immunologic: Negative: Hx Anaphylaxis, Hx Angioedema, Hx Environmental, Hx Seasonal, Athsma, Hx HIV, Immunocompromise, Swollen Glands LymphNodes, Other Objective Active Medications: Chlordiazepoxide (Librium Cap*) 50 mg PO Q2H PRN PRN Reason: ANXIETY Cyanocobalamin (Vitamin B12 Tab*) 500 mcg PO DAILY [facility] Potassium Chloride/Dextrose (D5w 1/2 Ns Kcl 20 Meq 1000 Ml*) 1,000 mls @ 125 mls/hr IV PER RATE JORGE LUIS Lorazepam (Ativan Inj*) 2 mg IV PUSH Q3H PRN PRN Reason: ANXIETY Metoprolol Succinate (Toprol Xl Tab*) 25 mg PO BID JORGE LUIS Ondansetron HCl (Zofran Inj*) 4 mg IV Q4H PRN PRN Reason: NAUSEA Thiamine HCl (Vitamin B-1 Tab*) 100 mg PO DAILY [facility] Vital Signs - 8 hr 12/13/17 12/13/17 13:16 15:09 Temperature 99.1 F Pulse Rate 95 Respiratory 18 17 Rate Blood Pressure 127/72 (mmHg) O2 Sat by Pulse 99 Oximetry Oxygen Devices in Use Now: Nasal Cannula Appearance: Alert, partly up on ED stretcher. In fair spirits. Looks comfortable. Eyes: No Scleral Icterus Ears/Nose/Mouth/Throat: Clear Oropharnyx, Mucous Membranes Moist Neck: NL Appearance and Movements; NL JVP, No Thyroid Enlargement, Masses Respiratory: Symmetrical Chest Expansion and Respiratory Effort, Clear to Auscultation, Clear to Percussion Cardiovascular: NL Sounds; No Murmurs; No JVD, RRR, No Edema, - Abdominal: NL Sounds; No Tenderness; No Distention, No Hepatosplenomegaly, - Extremities: No Edema, No Clubbing, Cyanosis, - Skin: No Rash or Ulcers, No Nodules or Sclerosis, - Neurological: Alert and Oriented x 3, NL Sensation - No tremor. Result Diagrams: 12/13/17 09:12 12/13/17 09:12 Assess/Plan/Problems-Billing Assessment: - Patient Problems (1) Iliopsoas muscle hematoma Current Visit: Yes Status: Acute Code(s): S70.10XA - CONTUSION OF UNSPECIFIED THIGH, INITIAL ENCOUNTER SNOMED Code(s): 687733334 Comment: Hold ASA, apixaban. CBC 12/14. Resumption of AC would depend on alcohol abstinence. (2) Chronic alcoholism Current Visit: No Status: Acute Code(s): F10.20 - ALCOHOL DEPENDENCE, UNCOMPLICATED SNOMED Code(s): 87335528 Comment: consult requested. PRN chlordiazepoxide for w/drawal sx's. Thiamine. ndansetron ODT for N&V, IV prochlorperazine also.
[2017-12-13] MEDS: D5W 1/2 NS KCl 20 Meq 1000 ML* 1,000 ML IV SCH (15:42)
[2017-12-13 18:11] LABS: Urine Appearance Clear; Urine Blood 1+ (Negative); Urine Color Yellow; Urine Ketones 1+ (Negative); Urine Protein Negative (Negative); Urine Red Blood Cell 2+(6-10/hpf) (Absent); Urine Specific Gravity 1.059 (1.010-1.030); Urine Urobilinogen Negative (Negative); Urine White Blood Cell Absent (Absent)
[2017-12-13] MEDS: Thiamine TAB* 100 MG TAB PO SCH (18:16)
[2017-12-13] MEDS ORDERED: CMCS: Melatonin (NF) 3 MG TAB PO PRN (20:00)
[2017-12-13] MEDS: PROCHLORPERAZINE INJ 5 MG/ML 2 ML VIAL IV PRN (21:32)
[2017-12-13] MEDS: Metoprolol Succinate XL TAB* 25 MG PO SCH (21:35)
[2017-12-13] MEDS: Acetaminophen TAB* 325 MG PO PRN (21:39)
[2017-12-14] MEDS: D5W 1/2 NS KCl 20 Meq 1000 ML* 1,000 ML IV SCH (01:30)
[2017-12-14] MEDS: Acetaminophen TAB* 325 MG PO PRN (04:06)
[2017-12-14 06:46] LABS: ABS Basophils 0.1 10^3/ul (0-0.2); ABS Eosinophils 0.1 10^3/ul (0-0.6); ABS Lymphocytes 1.1 10^3/ul (1.0-4.8); ABS Monocytes 0.5 10^3/ul (0-0.8); ABS Neutrophils 4.7 10^3/ul (1.5-7.7); ABS Nucleated RBC 0 10^3/ul; Eosinophil % 1.7 % (0-6); Hematocrit 31 % (42-52); Hemoglobin 10.9 g/dl (14.0-18.0); Lymphocyte % 16.4 % (25-47); Mean Corpuscular HGB Conc 35 g/dl (31-36); Mean Corpuscular Hemoglobin 35 pg (27-31); Mean Corpuscular Volume 101 fL (80-94); Mean Platelet Volume 7.2 um3 (7.4-10.4); Nucleated Red Blood Cells % 0; Platelet Count 155 10^3/ul (150-450); Red Cell Distribution Width 15 % (10.5-15); White Blood Count 6.4 10^3/ul (3.5-10.8)
[2017-12-14 07:04] LABS: EGFR Non-African American 76.5 (>60)
--- NOTE | 2017-12-14 07:37 | PN ---
Subjective Date of Service: 12/14/17 Interval History: Slept poorly, received IV lorazepam at 21:34 last evening and chlordiazepoxide 50 mg at 04:05 this AM. Appetite OK. Mccarty RLQ improved. Family History: Findings - father had CAD. Social History: Findings - x 6 yrs. Alcohol as in hpi. Never smoked. SDM is his sister Jocelin Bethea. No children Objective Active Medications: Acetaminophen (Tylenol Tab*) 650 mg PO Q6H PRN PRN Reason: PAIN/FEVER Last Admin: 12/14/17 04:06 Dose: 650 mg Chlordiazepoxide (Librium Cap*) 50 mg PO Q2H PRN PRN Reason: ANXIETY Last Admin: 12/14/17 04:05 Dose: 50 mg Chlordiazepoxide (Librium Cap*) 50 mg PO TID [facility] Cyanocobalamin (Vitamin B12 Tab*) 500 mcg PO DAILY [facility] Potassium Chloride/Dextrose (D5w 1/2 Ns Kcl 20 Meq 1000 Ml*) 1,000 mls @ 125 mls/hr IV PER RATE [facility] Last Admin: 12/14/17 01:30 Dose: 125 mls/hr Lorazepam (Ativan Inj*) 2 mg IV PUSH Q3H PRN PRN Reason: ANXIETY Last Admin: 12/13/17 21:34 Dose: 2 mg Metoprolol Succinate (Toprol Xl Tab*) 25 mg PO BID [facility] Last Admin: 12/13/17 21:35 Dose: 25 mg Ondansetron HCl (Zofran Odt Tab*) 4 mg PO Q4H PRN PRN Reason: NAUSEA Last Admin: 12/13/17 15:42 Dose: 4 mg Phytonadione (Vitamin K Oral Solution*) 5 mg PO DAILY [facility] Prochlorperazine Edisylate (Compazine Inj*) 10 mg IV Q6H PRN PRN Reason: NAUSEA/VOMITING Last Admin: 12/13/17 21:32 Dose: 10 mg Thiamine HCl (Vitamin B-1 Tab*) 100 mg PO DAILY [facility] Last Admin: 12/13/17 18:16 Dose: 100 mg Vital Signs - 8 hr 12/14/17 12/14/17 12/14/17 03:13 04:05 06:44 Temperature 98.8 F Pulse Rate 99 Respiratory 16 18 18 Rate Blood Pressure 155/87 (mmHg) O2 Sat by Pulse 92 Oximetry Oxygen Devices in Use Now: None Appearance: Alert, partly up in bed. In good spirits. Looks comfortable. Eyes: No Scleral Icterus Abdominal: NL Sounds; No Tenderness; No Distention, No Hepatosplenomegaly, - - No flank ecchymosis Extremities: No Edema, No Clubbing, Cyanosis, - Skin: No Rash or Ulcers, No Nodules or Sclerosis, - Neurological: Alert and Oriented x 3, NL Sensation, - - No tremor. Result Diagrams: 12/14/17 06:10 12/14/17 06:11 Assess/Plan/Problems-Billing Assessment: - Patient Problems (1) Iliopsoas muscle hematoma Current Visit: Yes Status: Acute Code(s): S70.10XA - CONTUSION OF UNSPECIFIED THIGH, INITIAL ENCOUNTER SNOMED Code(s): 357441784 Comment: Hold ASA, apixaban. Hct down to 31, likely due to IV fluids. Check CBC 12/17, Sunday as outpt. Resumption of AC would depend on alcohol abstinence, woll leave for Dr. Rodriguez to decide. (2) Chronic alcoholism Current Visit: No Status: Acute Code(s): F10.20 - ALCOHOL DEPENDENCE, UNCOMPLICATED SNOMED Code(s): 18984188 Comment: SW consult appreciated. Rx scheduled chlordiazepoxide for 9 doses at home. I explained to pt and his girlfriend that he cannot have even a drop of alcohol while taking chlordizepoxide. (3) Afib Current Visit: No Status: Acute Code(s): I48.91 - UNSPECIFIED ATRIAL FIBRILLATION SNOMED Code(s): 44614232 Comment: Continue metoprolol. Apixaban on hold as above
--- NOTE | 2017-12-14 07:40 | ED ---
Brigette Gallegos Gabriel scribed for Milan Lewis MD on 12/13/17 at 0901 . Lower Extremity - HPI Summary HPI Summary: This patient is a 72 year old M BIBA to [facility] with a chief complaint of increased groin pain on the right side that has been chronic for 10 years. Pt had a hip replacement in right hip several years ago. The patient rates the pain 10/10 in severity. Patient reports numbness in bilateral LE. He has had this issue before and it was deemed that it was not a vascular problem. Patient denies CP, melena, and SOB. 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 Pt was seen 4 days ago for the same pain and it did not resolve. Pt has had an unknown amount of etoh tonight. He was recent admitted to ICU for an infection. I reviewed patients records. Hx DVT, no hernias. - History of Current Complaint Chief Complaint: EDExtremityLower Stated Complaint: GROIN PAIN/ETOH Time Seen by Provider: 12/13/17 08:36 Hx Obtained From: Patient Onset of Pain: Immediate Onset/Duration: Still Present Severity Initially: Severe Severity Currently: Severe Pain Intensity: 10 Pain Scale Used: 0-10 Numeric Timing: Constant Associated Signs And Symptoms: Positive: Other - numbness in bilateral LE. - Allergies/Home Medications Allergies/Adverse Reactions: Allergies Allergy/AdvReac Type Severity Reaction Status Date / Time No Known Allergies Allergy Verified 12/09/17 19:12 PMH/Surg Hx/FS Hx/Imm Hx Endocrine/Hematology History: Denies: Hx Anticoagulant Therapy, Hx Blood Disorders, Hx Blood Transfusions, Hx Bone Marrow Disease, Hx Diabetes, Hx Systemic Lupus Erythematosus, Hx Sickle Cell Disease, Hx Thyroid Disease, Hx Anemia, Hx Unexplained Bleeding, Other Endocrine/Hematological Disorders Cardiovascular History: Reports: Hx Atrial Fibrillation, Hx Deep Vein Thrombosis , Hx Embolism - Pulmonary Embolism, Hx Hypercholesterolemia, Hx Hypertension - TAKES NO MEDS, Other Cardiovascular Problems/Disorders - HIGH CHOLESTEROL Denies: Hx Aneurysm, Hx Angina, Hx Auto Implanted Cardiovert Defib, Hx Cardiac Arrest, Hx Cardiomegaly, Hx Congenital Heart Disease, Hx Congestive Heart Failure, Hx Coronary Artery Disease, Hx Hypotension, Hx Pacemaker/ICD, Hx Peripheral Vascular Disease, Hx Rheumatic Fever, Hx Syncope, Hx Valvular Heart Disease Respiratory History: Reports: Hx Pleural Effusion, Hx Pulmonary Embolism Denies: Hx Asthma, Hx Chronic Bronchitis, Hx Chronic Obstructive Pulmonary Disease (COPD), Hx Cystic Fibrosis, Hx Lung Cancer, Hx Pneumonia, Hx Pulmonary Edema, Hx Seasonal Allergies, Hx Sleep Apnea, Other Respiratory Problems/ Disorders GI History: Denies: Hx Cirrhosis, Hx Crohn's Disease, Hx Diverticulosis, Hx Gall Bladder Disease, Hx Gastroesophageal Reflux Disease, Hx Gastrointestinal Bleed, Hx Hiatal Hernia, Hx Irritable Bowel, Hx Jaundice, Hx Obstructive Bowel, Hx Ileostomy, Hx Pyloric Stenosis, Hx Ulcer, Other GI Disorders History: Denies: Hx Acute Renal Failure, Hx Benign Prostatic Hyperplasia, Hx Chronic Renal Failure, Hx Dialysis, Hx Kidney Infection, Hx Kidney Stones, Hx Renal Disease, Other Problems/Disorders Musculoskeletal History: Reports: Other Musculoskeletal History - R hip relpacement Denies: Hx Arthritis, Hx Back Problems, Hx Bursitis, Hx Congenital Bone Abnormalities, Hx Fibromyalgia, Hx Gout, Hx Orthopedic Injury, Hx Osteoporosis, Hx Scoliosis, Hx Tendonitis Sensory History: Denies: Hx Cataracts, Hx Contacts or Glasses, Hx Eye Injury, Hx Eye Prosthesis, Hx Glaucoma, Hx Legally Blind, Hx Macular Degeneration, Hx Vision Problem, Hx Deafness, Hx Hearing Aid, Hx Hearing Problem, Other Sensory Impairments Opthamlomology History: Denies: Hx Cataracts, Hx Contacts or Glasses, Hx Eye Injury, Hx Eye Prosthesis, Hx Glaucoma, Hx Legally Blind, Hx Macular Degeneration, Hx Vision Problem, Other Sensory Impairments Neurological History: Reports: Other Neuro Impairments/Disorders - Bilateral foot numbness Denies: Hx Dementia, Hx Developmental Delay, Hx Headaches, Hx Migraine, Hx Nerve Disease, Hx Seizures, Hx Spinal Cord Injury, Hx Transient Ischemic Attacks (TIA) Psychiatric History: Reports: Hx Anxiety, Hx Depression, Hx Inpatient Treatment , Hx Community Mental Health Tx, Hx Suicide Attempt, Hx Substance Abuse - EtOH Denies: Hx Attention Deficit Hyperactivity Disorder, Hx Eating Disorder, Hx Panic Disorder, Hx Post Traumatic Stress Disorder, Hx Schizophrenia, Hx Bipolar Disorder, Hx of Violent Episodes Against Others, Other Psychiatric Issues/ Disorders - Surgical History Surgery Procedure, Year, and Place: RT HIP REPLACEMENT Hx Anesthesia Reactions: No - Immunization History Date of Tetanus Vaccine: Unk Date of Influenza Vaccine: Unk Infectious Disease History: No Infectious Disease History: Reports: Hx Hepatitis - Reported via blood bank upon donation, Hx Shingles Denies: Hx Clostridium Difficile, Hx Human Immunodeficiency Virus (HIV), Hx of Known/Suspected MRSA, Hx Tuberculosis, History Other Infectious Disease, Traveled Outside the [place] in Last 30 Days - Family History Known Family History: Negative: Cardiac Disease, Hypertension, Diabetes - Social History Alcohol Use: Daily Alcohol Amount: gin Hx Substance Use: No Substance Use Type: Reports: None Hx Tobacco Use: No Smoking Status (MU): Never Smoked Tobacco Review of Systems Negative: Fever, Chills Negative: Erythema Negative: Sore Throat Negative: Chest Pain Negative: Shortness Of Breath, Cough Negative: Abdominal Pain, Vomiting, Nausea Negative: dysuria, hematuria Positive: Other - groin pain . Negative: Myalgia, Edema Negative: Rash Neurological: Negative - dizziness Positive: Numbness All Other Systems Reviewed And Are Negative: Yes Physical Exam - Summary Physical Exam Summary: Constitutional: Well-developed, Well-nourished, Alert. (-) Distressed Skin: Warm, Dry HENT: Normocephalic; Atraumatic Eyes: Conjunctiva normal Neck: Musculoskeletal ROM normal neck. (-) JVD, (-) Stridor, (-) Tracheal deviation Cardio: Rhythm regular, rate normal, Heart sounds normal; Intact distal pulses; The pedal pulses are 2+ and symmetric. Radial pulses are 2+ and symmetric. (-) Murmur Pulmonary/Chest wall: Effort normal. (-) Respiratory distress, (-) Wheezes, (-) Rales Abd: Soft, (-) Tenderness, (-) Distension, (-) Guarding, (-) Rebound Musculoskeletal: (-) Edema, full ROM of the hip Lymph: (-) Cervical adenopathy Neuro: Alert, Oriented x3 Psych: Mood and affect Normal : No reproducible tenderness, no hernia Triage Information Reviewed: Yes Vital Signs On Initial Exam: Initial Vitals Temp Pulse Resp BP Pulse Ox 97.6 F 59 19 108/65 92 12/13/17 08:14 12/13/17 08:14 12/13/17 08:14 12/13/17 08:14 12/13/17 08:14 Vital Signs Reviewed: Yes Diagnostics - Vital Signs Vital Signs Temp Pulse Resp BP Pulse Ox 12/13/17 08:14 97.6 F 59 19 108/65 92 - Laboratory Result Diagrams: 12/13/17 09:12 12/13/17 09:12 Lab Statement: Any lab studies that have been ordered have been reviewed, and results considered in the medical decision making process. - CT CT Brain CT Interpretation Completed By: Radiologist - MODERATE CORTICAL ATROPHY. MINOR CHRONIC MICROVASCULAR ISCHEMIC NO ACUTE FINDINGS ED physician has reviewed this radiology report. CTA Chest/ABD/Pelvis CT Interpretation Completed By: Radiologist - 1. No CT evidence of acute pulmonary embolic disease. 2. Right-sided iliopsoas hematoma. 3. Presumed coil embolization left perinephric region. No interval change. 4. Scattered diverticula. 5. Right hip arthroplasty. ED physician has reviewed this radiology report. - Additional Comments Diagnostic Additional Comments: Venous Doppler Study reveals, per radiologist, Normal examination. No evidence of deep venous thrombosis ED physician has reviewed this radiology report. Lower Extremity Course/Dx - Course Assessment/Plan: This patient is a 72 year old M BIBA to [facility] with a chief complaint of increased groin pain on the right side that has been chronic for 10 years. Pt had a hip replacement in right hip several years ago. The patient rates the pain 10/10 in severity. Patient reports numbness in bilateral LE. He has had this issue before and it was deemed that it was not a vascular problem. Patient denies CP, melena, and SOB. 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 Pt was seen 4 days ago for the same pain and it did not resolve. Pt has had an unknown amount of etoh tonight. He was recent admitted to ICU for an infection. I reviewed patients records. Hx DVT , no hernias. Venous Doppler Study reveals, per radiologist, Normal examination. No evidence of deep venous thrombosis. Brain CT reveals, per radiology, MODERATE CORTICAL ATROPHY. MINOR CHRONIC MICROVASCULAR ISCHEMIC NO ACUTE FINDINGS. CTA Chest/ABD/Pelvis reveals, per radiologist, 1. No CT evidence of acute pulmonary embolic disease. 2. Right-sided iliopsoas hematoma. 3. Presumed coil embolization left perinephric region. No interval change. 4. Scattered diverticula. 5. Right hip arthroplasty. Test results with no significant abnormalities except for Hgb of 11.6. In the ED course the patient was given Ativan, oxycodone, Compazine. We discussed patient care with Dr. Stovall and they accepted the patient for admission. Patient will be admitted. The patient is agreeable with this plan. - Diagnoses Provider Diagnoses: Hematoma of right iliopsoas muscle, Alcohol intoxication - Physician Notifications Discussed Care Of Patient With: Jose Juan Stovall Time Discussed With Above Provider: 13:01 Discharge - Sign-Out/Discharge Documenting (check all that apply): Discharge/Admit/Transfer - admitted - Discharge Plan Condition: Fair Disposition: ADMITTED TO [facility] Referrals: Onur Rodriguez MD [Primary Care Provider] - The documentation as recorded by the Brigette quintanilla Gabriel accurately reflects the service I personally performed and the decisions made by me, Milan Lewis MD.
[2017-12-14] MEDS: PROCHLORPERAZINE INJ 5 MG/ML 2 ML VIAL IV PRN (08:17)
[2017-12-14] MEDS: Thiamine TAB* 100 MG TAB PO SCH (08:20)
[2017-12-14] MEDS: Metoprolol Succinate XL TAB* 25 MG PO SCH (08:20)
[2017-12-14] MEDS ORDERED: Cyanocobalamin TAB* 500 MCG PO SCH (09:00)
[2017-12-14] MEDS ORDERED: chlordiazePOXIDE CAP* 25 MG PO SCH (09:00)
[2017-12-14] MEDS ORDERED: Phytonadione Oral Solution* 5 MG/25 ML UDC PO SCH (09:00)
[2017-12-14 09:35] VITALS: BP 150/89
--- NOTE | 2017-12-14 10:24 | PN ---
"Progress Note - Progress Note Date of Service: 12/14/17 Note: Search Terms: pedro lanier, 1945 Search Date: 12/14/2017 10:23:12 AM The Drug Utilization Report below displays all of the controlled substance prescriptions, if any, that your patient has filled in the last twelve months. The information displayed on this report is compiled from pharmacy submissions to the Department, and accurately reflects the information as submitted by the pharmacies. This report was requested by: Jose Juan Stovall | Reference #: [id number] There are no results for the search terms that you entered."
--- NOTE | 2017-12-15 03:54 | DS ---
CC: Dr. Rodriguez * DISCHARGE SUMMARY: DATE OF ADMISSION: 12/13/17 DATE OF DISCHARGE: 12/14/17 HOSPITAL COURSE: This 72-year-old male came to the emergency room because of right lower quadrant pain and in addition, he was concerned about his alcoholism. He was very intoxicated in the emergency room. He said he had the right lower quadrant pain for about 4 weeks. He denied any falls. He denied blackouts, any history of trauma. He also told me he had been in alcohol rehab too many times to count. CT scan showed a right iliopsoas muscle hematoma. His INR was elevated possibly due to his Eliquis, although I cannot be sure he did not have liver disease as well. He did get a dose of vitamin K here. His hematocrit on admission was 34, similar to prior results, it was 31 at the day of discharge, possibly due to intravenous fluids. He really did not have much pain. He was less intoxicated on the day of discharge. He received a dose of IV lorazepam and a couple of doses of p.o. chlordiazepoxide before being discharged. I am going to give him chlordiazepoxide 25 mg t.i.d. for 9 doses. It should self taper itself after that. He should have the most mild withdrawal symptoms during and after his home dosing of chlordiazepoxide. The social worker delinquency prevention is to see him as well to discuss his alcoholism before discharge. I am recommending he not take Eliquis until he can demonstrate that he can be sober consistently. I suspect that he does have blackouts and/or simply does not remember when he falls. I have put in an order for him to have a CBC in 3 days on 12/17/17, with a report to Dr. Rodriguez. FINAL DIAGNOSES: 1. Iliopsoas muscle abscess. 2. Acute and chronic alcoholism. 3. History of atrial fibrillation. 4. History of pulmonary embolism. DISCHARGE MEDICATIONS: 1. Chlordiazepoxide 25 mg t.i.d. for 9 doses. 2. Aspirin 81 mg daily. 3. Folic acid 1 mg daily. 4. Vitamin B12, 500 mcg daily. 5. Magnesium oxide 400 mg b.i.d. 6. Lovaza as prescribed. 7. Metoprolol succinate 25 mg b.i.d. 8. Sertraline 50 mg daily. 9. Thiamine 100 mg daily. Apixaban or Eliquis has been discontinued. [id number]/[facility] #: [id number] [facility]
== END 2017-12-14 11:15 | disposition home or self-care (01) ==
LOC: ED 08:06 → MED 13:13
PROVIDERS: ADMIT Internal Medicine; ATTEND Internal Medicine
DX: M60.003 Infective myositis, unspecified right leg (principal); F10.20 Alcohol dependence, uncomplicated; I48.91 Unspecified atrial fibrillation; Z86.711 Personal history of pulmonary embolism; Z79.82 Long term (current) use of aspirin
CPT/HCPCS: 36415; 70450; 71275; 74177; 80048; 80053; 80320; 81003; 81015; 83605; 84484; 85025; 85610; 85730; 87040; 99283; A9270-GY; G0378; G0480; J0780; J2060; J3411; Q9967

== ENCOUNTER 2018-01-07 22:55 | Emergency (ER) | payer MEDICARE, OTHER ==
[2018-01-07] MEDS ORDERED: Thiamine IV 100 MG, Folic Acid IV* 1 MG, Multiple Vitamin IV ADULT* 10 ML in NS 0.9% 10... IV ONE (23:55)
[2018-01-07] MEDS ORDERED: LORazepam INJ* 2 MG/ML 1 ML VIAL IV PUSH ONE (23:56)
[2018-01-08 00:40] LABS: ABS Basophils 0.1 10^3/ul (0-0.2); ABS Eosinophils 0.1 10^3/ul (0-0.6); ABS Lymphocytes 1.3 10^3/ul (1.0-4.8); ABS Monocytes 0.4 10^3/ul (0-0.8); ABS Neutrophils 2.3 10^3/ul (1.5-7.7); ABS Nucleated RBC 0 10^3/ul; Eosinophil % 2.1 % (0-6); Hematocrit 36 % (42-52); Hemoglobin 11.9 g/dl (14.0-18.0); Lymphocyte % 31.7 % (25-47); Mean Corpuscular HGB Conc 33 g/dl (31-36); Mean Corpuscular Hemoglobin 35 pg (27-31); Mean Corpuscular Volume 105 fL (80-94); Mean Platelet Volume 7.2 um3 (7.4-10.4); Nucleated Red Blood Cells % 0.1; Platelet Count 106 10^3/ul (150-450); Red Blood Count 3.41 10^6/ul (4.0-5.4); Red Cell Distribution Width 19 % (10.5-15); White Blood Count 4.2 10^3/ul (3.5-10.8)
[2018-01-08 01:01] LABS: EGFR Non-African American 70.6 (>60)
[2018-01-08 01:32] LABS: INR 0.9 (0.77-1.02)
[2018-01-08 04:53] VITALS: BP 158/97
--- NOTE | 2018-01-08 05:59 | ED ---
Ting Gallegos Emily, scribed for Ravinder Armstrong MD on 01/07/18 at 2342 . Lower Extremity - HPI Summary HPI Summary: This patient is a 72 year old M presenting to [facility] with a chief complaint of bilateral lower extremity weakness that worsened today. The patient rates the pain 0/10 in severity. Symptoms aggravated by ambulation. Symptoms alleviated by nothing. Patient denies nausea and vomiting. Pt reports that he has been an alcoholic all his life, and his last drink was this morning. Pt reports that he has fallen twice today. - History of Current Complaint Chief Complaint: EDGeneral Stated Complaint: UNABLE TO WALK Time Seen by Provider: 01/07/18 23:26 Hx Obtained From: Patient Onset/Duration: Hours Severity Initially: Mild Severity Currently: Mild Pain Intensity: 0 Pain Scale Used: 0-10 Numeric Timing: Constant Location: Is Diffuse Associated Signs And Symptoms: Positive: Other - Negative nausea and vomiting Aggravating Factor(s): Ambulation Alleviating Factor(s): Nothing Able to Bear Weight: No - Allergies/Home Medications Allergies/Adverse Reactions: Allergies Allergy/AdvReac Type Severity Reaction Status Date / Time No Known Allergies Allergy Verified 01/07/18 23:39 PMH/Surg Hx/FS Hx/Imm Hx Previously Healthy: No Endocrine/Hematology History: Denies: Hx Anticoagulant Therapy, Hx Blood Disorders, Hx Blood Transfusions, Hx Bone Marrow Disease, Hx Diabetes, Hx Systemic Lupus Erythematosus, Hx Sickle Cell Disease, Hx Thyroid Disease, Hx Anemia, Hx Unexplained Bleeding, Other Endocrine/Hematological Disorders Cardiovascular History: Reports: Hx Atrial Fibrillation, Hx Deep Vein Thrombosis , Hx Embolism - Pulmonary Embolism, Hx Hypercholesterolemia, Hx Hypertension - TAKES NO MEDS, Other Cardiovascular Problems/Disorders - HIGH CHOLESTEROL Denies: Hx Aneurysm, Hx Angina, Hx Auto Implanted Cardiovert Defib, Hx Cardiac Arrest, Hx Cardiomegaly, Hx Congenital Heart Disease, Hx Congestive Heart Failure, Hx Coronary Artery Disease, Hx Hypotension, Hx Pacemaker/ICD, Hx Peripheral Vascular Disease, Hx Rheumatic Fever, Hx Syncope, Hx Valvular Heart Disease Respiratory History: Reports: Hx Pleural Effusion, Hx Pulmonary Embolism Denies: Hx Asthma, Hx Chronic Bronchitis, Hx Chronic Obstructive Pulmonary Disease (COPD), Hx Cystic Fibrosis, Hx Lung Cancer, Hx Pneumonia, Hx Pulmonary Edema, Hx Seasonal Allergies, Hx Sleep Apnea, Other Respiratory Problems/ Disorders GI History: Denies: Hx Cirrhosis, Hx Crohn's Disease, Hx Diverticulosis, Hx Gall Bladder Disease, Hx Gastroesophageal Reflux Disease, Hx Gastrointestinal Bleed, Hx Hiatal Hernia, Hx Irritable Bowel, Hx Jaundice, Hx Obstructive Bowel, Hx Ileostomy, Hx Pyloric Stenosis, Hx Ulcer, Other GI Disorders History: Denies: Hx Acute Renal Failure, Hx Benign Prostatic Hyperplasia, Hx Chronic Renal Failure, Hx Dialysis, Hx Kidney Infection, Hx Kidney Stones, Hx Renal Disease, Other Problems/Disorders Musculoskeletal History: Reports: Other Musculoskeletal History - R hip relpacement Denies: Hx Arthritis, Hx Back Problems, Hx Bursitis, Hx Congenital Bone Abnormalities, Hx Fibromyalgia, Hx Gout, Hx Orthopedic Injury, Hx Osteoporosis, Hx Scoliosis, Hx Tendonitis Sensory History: Denies: Hx Cataracts, Hx Contacts or Glasses, Hx Eye Injury, Hx Eye Prosthesis, Hx Glaucoma, Hx Legally Blind, Hx Macular Degeneration, Hx Vision Problem, Hx Deafness, Hx Hearing Aid, Hx Hearing Problem, Other Sensory Impairments Opthamlomology History: Denies: Hx Cataracts, Hx Contacts or Glasses, Hx Eye Injury, Hx Eye Prosthesis, Hx Glaucoma, Hx Legally Blind, Hx Macular Degeneration, Hx Vision Problem, Other Sensory Impairments Neurological History: Reports: Other Neuro Impairments/Disorders - Bilateral foot numbness Denies: Hx Dementia, Hx Developmental Delay, Hx Headaches, Hx Migraine, Hx Nerve Disease, Hx Seizures, Hx Spinal Cord Injury, Hx Transient Ischemic Attacks (TIA) Psychiatric History: Reports: Hx Anxiety, Hx Depression, Hx Inpatient Treatment , Hx Community Mental Health Tx, Hx Suicide Attempt, Hx Substance Abuse - EtOH Denies: Hx Attention Deficit Hyperactivity Disorder, Hx Eating Disorder, Hx Panic Disorder, Hx Post Traumatic Stress Disorder, Hx Schizophrenia, Hx Bipolar Disorder, Hx of Violent Episodes Against Others, Other Psychiatric Issues/ Disorders - Surgical History Surgery Procedure, Year, and Place: RT HIP REPLACEMENT Hx Anesthesia Reactions: No - Immunization History Date of Tetanus Vaccine: Unk Date of Influenza Vaccine: Unk Infectious Disease History: No Infectious Disease History: Reports: Hx Hepatitis - Reported via blood bank upon donation, Hx Shingles Denies: Hx Clostridium Difficile, Hx Human Immunodeficiency Virus (HIV), Hx of Known/Suspected MRSA, Hx Tuberculosis, History Other Infectious Disease, Traveled Outside the [place] in Last 30 Days - Family History Known Family History: Negative: Cardiac Disease, Hypertension, Diabetes - Social History Occupation: Retired Lives: Alone Alcohol Use: Daily Alcohol Amount: gin Hx Substance Use: No Substance Use Type: Reports: None Hx Tobacco Use: No Smoking Status (MU): Never Smoked Tobacco Review of Systems Negative: Vomiting, Nausea Positive: Edema All Other Systems Reviewed And Are Negative: Yes Physical Exam - Summary Physical Exam Summary: VITAL SIGNS: Reviewed. GENERAL: ~Patient is a well-developed and nourished male who is lying comfortable in the stretcher. Patient is not in any acute respiratory distress. HEAD AND FACE: No signs of trauma. No ecchymosis, hematomas or skull depressions. No sinus tenderness. EYES: PERRLA, EOMI x 2, No injected conjunctiva, no nystagmus. EARS: Hearing grossly intact. Ear canals and tympanic membranes are within normal limits. MOUTH: Oropharynx within normal limits. NECK: Supple, trachea is midline, no adenopathy, no JVD, no carotid bruit, no c- spine tenderness, neck with full ROM. CHEST: Symmetric, no tenderness at palpation LUNGS: Clear to auscultation bilaterally. No wheezing or crackles. CVS: Regular rate and rhythm, S1 and S2 present, no murmurs or gallops appreciated. ABDOMEN: Soft, non-tender. No signs of distention. No rebound no guarding, and no masses palpated. Bowel sounds are normal. EXTREMITIES: Bilateral lower extremity edema. Bilateral feet cold. Small abrasion/skin tear with loss of skin over the knee, no bleeding. no cyanosis or clubbing. NEURO: Alert and oriented x 3. No acute neurological deficits. Speech is normal and follows commands. Tremulous. He has glove stocking anesthesia consistent with neuropathy. SKIN: Dry and warm Triage Information Reviewed: Yes Vital Signs On Initial Exam: Initial Vitals Temp Pulse Resp BP Pulse Ox 98.6 F 95 16 157/88 97 01/07/18 22:57 01/07/18 22:57 01/07/18 22:57 01/07/18 22:57 01/07/18 22:57 Vital Signs Reviewed: Yes Diagnostics - Vital Signs Vital Signs Temp Pulse Resp BP Pulse Ox 01/07/18 23:11 81 19 142/92 97 01/07/18 23:10 77 18 97 01/07/18 22:57 98.6 F 95 16 157/88 97 - Laboratory Result Diagrams: 01/08/18 00:35 01/08/18 00:34 Lab Statement: Any lab studies that have been ordered have been reviewed, and results considered in the medical decision making process. Re-Evaluation - Re-Evaluation First Eval Re-Evaluation Time: 05:30 Change: Improved Comment: Pt is able to walk around the ED with a mild and steady gait. Pt reports this being his baseline, as he ambulates with a walker at home. Lower Extremity Course/Dx - Course Course Of Treatment: This patient is a 72 year old M presenting to [facility] with a chief complaint of bilateral lower extremity weakness that worsened today. In physical exam, glove stocking anesthesia consistent with neuropathy. Pt is able to walk around the ED with a mild and steady gait. Pt reports this being his baseline, as he ambulates with a walker at home. Pt will be discharge home with folow up from PCP. The patient is agreeable with this plan. - Diagnoses Provider Diagnoses: Neuropathy, alcoholic, Alcohol intoxication Discharge - Sign-Out/Discharge Documenting (check all that apply): Discharge/Admit/Transfer - Discharge home - Discharge Plan Condition: Stable Disposition: HOME Patient Education Materials: Alcohol Intoxication (ED), Peripheral Neuropathy ( ED) Referrals: Onur Rodriguez MD [Primary Care Provider] - 3 Days Additional Instructions: RETURN TO THE EMERGENCY DEPARTMENT FOR NEW OR WORSENING SYMPTOMS The documentation as recorded by the Ting quintanilla Emily accurately reflects the service I personally performed and the decisions made by me, Ravinder Armstrong MD.
== END 2018-01-08 06:19 | disposition home or self-care (01) ==
LOC: ED 22:55
DX: G62.9 Polyneuropathy, unspecified (principal); F10.229 Alcohol dependence with intoxication, unspecified; I48.91 Unspecified atrial fibrillation; Z86.718 Personal history of other venous thrombosis and embolism; Z86.711 Personal history of pulmonary embolism; I10 Essential (primary) hypertension; E78.00 Pure hypercholesterolemia, unspecified; Z79.82 Long term (current) use of aspirin; Z79.899 Other long term (current) drug therapy
CPT/HCPCS: 36415; 80053; 80320; 82550; 84443; 85025; 85610; 85730; 96365; 96375; 99283; G0480; J2060; J3411

== ENCOUNTER 2018-03-27 15:55 | Observation (INO) | payer MEDICARE, OTHER ==
[2018-03-27] MEDS ORDERED: Tetan/Diph/Pertus SYR(Tdap)* 0.5 ML SYR(BOOSTRIX) use SYR IM ONE (16:44)
[2018-03-27] MEDS ORDERED: LORazepam INJ* 2 MG/ML 1 ML VIAL IV PUSH ONE (16:44)
[2018-03-27] MEDS ORDERED: Thiamine IV* 100 MG, Folic Acid IV* 1 MG, Multiple Vitamin IV ADULT* 10 ML in NS 0.9% 1... IV ONE (16:44)
--- NOTE | 2018-03-27 16:49 | ED ---
Adult Trauma - HPI Summary HPI Summary: This patient is a 73 year old M presenting to ED with a chief complaint of head laceration s/p fall 2 days ago. The CC is described as actively bleeding of a 3 cm gaped laceration on right eyebrow from his metal glasses. Prior treatment includes Neosporin. The patient rates the pain 0/10 in severity. Symptoms aggravated by nothing. Symptoms alleviated by nothing. Patient reports nausea, being progressively very shaky within the last day and ataxic with limb movement. Patient denies neck pain, NANCE, and visual changes. PMHx of alcoholism. He has been drinking gin for about a week now. He has not had anything for 24 hours though. He is seeing a counselor currently, Antony Kiser, and saw him a month ago. Has an appointment with him on 03/29/18. Last tetanus shot was many years ago. - History of Current Complaint Chief Complaint: EDHeadInjury Stated Complaint: HEAD INJURY Time Seen by Provider: 03/27/18 16:25 Hx Obtained From: Patient Mechanism of Injury: Fall Current Severity: None Pain Intensity: 0 Pain Scale Used: 0-10 Numeric Location: Other - Laceration above R eyebrow Aggravating Factor(s): Nothing Alleviating Factor(s): Nothing Associated Signs & Symptoms: Positive: Other: - Patient reports nausea, being progressively very shaky within the last day and ataxic with limb movement. Patient denies neck pain, nausea, NANCE, and visual changes. - Additional Pertinent History Primary Care Physician: [id number] - Allergy/Home Medications Allergies/Adverse Reactions: Allergies Allergy/AdvReac Type Severity Reaction Status Date / Time No Known Allergies Allergy Verified 01/07/18 23:39 Home Medications: Home Medications Disulfiram TAB* [Antabuse 250 MG TAB*] 500 mg PO DAILY 03/27/18 [History Confirmed 03/27/18] PMH/Surg Hx/FS Hx/Imm Hx Endocrine/Hematology History: Denies: Hx Anticoagulant Therapy, Hx Blood Disorders, Hx Blood Transfusions, Hx Bone Marrow Disease, Hx Diabetes, Hx Systemic Lupus Erythematosus, Hx Sickle Cell Disease, Hx Thyroid Disease, Hx Anemia, Hx Unexplained Bleeding, Other Endocrine/Hematological Disorders Cardiovascular History: Reports: Hx Atrial Fibrillation, Hx Deep Vein Thrombosis , Hx Embolism - Pulmonary Embolism, Hx Hypercholesterolemia, Hx Hypertension - TAKES NO MEDS, Other Cardiovascular Problems/Disorders - HIGH CHOLESTEROL Denies: Hx Aneurysm, Hx Angina, Hx Auto Implanted Cardiovert Defib, Hx Cardiac Arrest, Hx Cardiomegaly, Hx Congenital Heart Disease, Hx Congestive Heart Failure, Hx Coronary Artery Disease, Hx Hypotension, Hx Pacemaker/ICD, Hx Peripheral Vascular Disease, Hx Rheumatic Fever, Hx Syncope, Hx Valvular Heart Disease Respiratory History: Reports: Hx Pleural Effusion, Hx Pulmonary Embolism Denies: Hx Asthma, Hx Chronic Bronchitis, Hx Chronic Obstructive Pulmonary Disease (COPD), Hx Cystic Fibrosis, Hx Lung Cancer, Hx Pneumonia, Hx Pulmonary Edema, Hx Seasonal Allergies, Hx Sleep Apnea, Other Respiratory Problems/ Disorders GI History: Denies: Hx Cirrhosis, Hx Crohn's Disease, Hx Diverticulosis, Hx Gall Bladder Disease, Hx Gastroesophageal Reflux Disease, Hx Gastrointestinal Bleed, Hx Hiatal Hernia, Hx Irritable Bowel, Hx Jaundice, Hx Obstructive Bowel, Hx Ileostomy, Hx Pyloric Stenosis, Hx Ulcer, Other GI Disorders History: Denies: Hx Acute Renal Failure, Hx Benign Prostatic Hyperplasia, Hx Chronic Renal Failure, Hx Dialysis, Hx Kidney Infection, Hx Kidney Stones, Hx Renal Disease, Other Problems/Disorders Musculoskeletal History: Reports: Other Musculoskeletal History - R hip relpacement Denies: Hx Arthritis, Hx Back Problems, Hx Bursitis, Hx Congenital Bone Abnormalities, Hx Fibromyalgia, Hx Gout, Hx Orthopedic Injury, Hx Osteoporosis, Hx Scoliosis, Hx Tendonitis Sensory History: Denies: Hx Cataracts, Hx Contacts or Glasses, Hx Eye Injury, Hx Eye Prosthesis, Hx Glaucoma, Hx Legally Blind, Hx Macular Degeneration, Hx Vision Problem, Hx Deafness, Hx Hearing Aid, Hx Hearing Problem, Other Sensory Impairments Opthamlomology History: Denies: Hx Cataracts, Hx Contacts or Glasses, Hx Eye Injury, Hx Eye Prosthesis, Hx Glaucoma, Hx Legally Blind, Hx Macular Degeneration, Hx Vision Problem, Other Sensory Impairments Neurological History: Reports: Other Neuro Impairments/Disorders - Bilateral foot numbness Denies: Hx Dementia, Hx Developmental Delay, Hx Headaches, Hx Migraine, Hx Nerve Disease, Hx Seizures, Hx Spinal Cord Injury, Hx Transient Ischemic Attacks (TIA) Psychiatric History: Reports: Hx Anxiety, Hx Depression, Hx Inpatient Treatment , Hx Community Mental Health Tx, Hx Suicide Attempt, Hx Substance Abuse - EtOH Denies: Hx Attention Deficit Hyperactivity Disorder, Hx Eating Disorder, Hx Panic Disorder, Hx Post Traumatic Stress Disorder, Hx Schizophrenia, Hx Bipolar Disorder, Hx of Violent Episodes Against Others, Other Psychiatric Issues/ Disorders - Surgical History Surgery Procedure, Year, and Place: RT HIP REPLACEMENT Hx Anesthesia Reactions: No - Immunization History Date of Tetanus Vaccine: Unk Date of Influenza Vaccine: Unk Infectious Disease History: No Infectious Disease History: Reports: Hx Hepatitis - Reported via blood bank upon donation, Hx Shingles Denies: Hx Clostridium Difficile, Hx Human Immunodeficiency Virus (HIV), Hx of Known/Suspected MRSA, Hx Tuberculosis, History Other Infectious Disease, Traveled Outside the [place] in Last 30 Days - Family History Known Family History: Negative: Cardiac Disease, Hypertension, Diabetes - Social History Alcohol Use: Daily Alcohol Amount: gin Hx Substance Use: No Substance Use Type: Reports: None Hx Tobacco Use: No Smoking Status (MU): Never Smoked Tobacco Review of Systems Positive: Other - denies visual changes Positive: Other - denies neck pain Positive: Nausea Positive: Other - 3 cm gaped laceration above the R eyebrow Neurological: Other - progressively very shaky within the last day and ataxic with limb movement Negative: Headache All Other Systems Reviewed And Are Negative: Yes Physical Exam - Summary Physical Exam Summary: Appearance: Well appearing, no pain distress Skin: warm, dry, reflects adequate perfusion, Bruise to posterior L thorax Head/face: 3 cm C-shaped laceration over his R eyebrow Eyes: EOMI, MEILSSA ENT: normal, No hemotympanum Neck: supple, non-tender, No tenderness to midline neck Respiratory: CTA, breath sounds present Cardiovascular: RRR, pulses symmetrical Abdomen: non-tender, soft Bowel Sounds: present Musculoskeletal: normal, strength/ROM intact, ROM is normal without pain Neuro: sensory motor intact, A&Ox3, Ataxic with wide base gait and pass pointing GCS 15 Triage Information Reviewed: Yes Vital Signs On Initial Exam: Initial Vitals Temp Pulse Resp BP Pulse Ox 97.9 F 75 16 142/87 99 03/27/18 16:20 03/27/18 16:20 03/27/18 16:20 03/27/18 16:20 03/27/18 16:20 Vital Signs Reviewed: Yes Procedures - Laceration/Wound Repair 1 Location: Other - above R eyebrow Anesthesia: .5%, Lido - supraorbital nerve block Length, Depth and Shape: 3.2 cm C-shaped laceration above the R eyebrow Laceration/Wound Explored: clean - Cleaned extensively with chlorhexidine and sterile water Suture Type: Prolene - Put 3 5.0 simple interrupted prolenes Number of Sutures: 3 Layer Closure?: Yes - loose closure Diagnostics - Vital Signs Vital Signs Temp Pulse Resp BP Pulse Ox 03/27/18 16:20 97.9 F 75 16 142/87 99 - Laboratory Result Diagrams: 03/27/18 16:55 03/27/18 16:55 Lab Statement: Any lab studies that have been ordered have been reviewed, and results considered in the medical decision making process. - CT Brain CT CT Interpretation Completed By: Radiologist - Age-appropriate atrophy. No evidence of intracranial mass or hemorrhage is noted. ED physician has reviewed this radiology report. - EKG 1800 Cardiac Rate: NL - [address] Segment: Normal EKG Interpretation: normal axis, baseline artifact Adult Trauma Course/Dx - Course Course Of Treatment: Patient with old laceration sustained likely while intoxicated. Grossly ataxic now. Evidence for alcohol withdrawal in spite of a positive alcohol level. Head CT negative. Laceration was cleaned and loosely repaired given its age. There is no evidence for infection. He is given Ativan for his alcohol withdrawal. He will be admitted through the hospitalist service who knows the patient from previous admission. - Diagnoses Provider Diagnoses: Facial laceration, Fall, Alcohol withdrawal syndrome, Alcoholism - Physician Notifications Discussed Care Of Patient With: Jose Juan Stovall Time Discussed With Above Provider: 17:56 Instructed by Provider To: Other - Consulted Dr. Stovall who accepts the patient for admission. Discharge - Sign-Out/Discharge Documenting (check all that apply): Patient Departure - Discharge Plan Condition: Guarded Disposition: TRANSFER TO [facility] ([facility]) - Billing Disposition and Condition Condition: GUARDED Disposition: Transfer to OB ([facility]) - Attestation Statements Document Initiated by Scribe: Yes Documenting Scribe: Terry Edmonds Provider For Whom Scribe is Documenting (Include Credential): Troy Jimenez MD Scribe Attestation: Terry Gallegos, scribed for Troy Jimenez MD on 03/27/18 at 1921. Scribe Documentation Reviewed: Yes Provider Attestation: The documentation as recorded by the scribeTerry accurately reflects the service I personally performed and the decisions made by Troy garcia MD
[2018-03-27 17:03] LABS: ABS Basophils 0 10^3/ul (0-0.2); ABS Eosinophils 0 10^3/ul (0-0.6); ABS Lymphocytes 1.4 10^3/ul (1.0-4.8); ABS Monocytes 0.6 10^3/ul (0-0.8); ABS Neutrophils 2.7 10^3/ul (1.5-7.7); ABS Nucleated RBC 0 10^3/ul; Eosinophil % 0.6 % (0-6); Hematocrit 40 % (42-52); Hemoglobin 13.5 g/dl (14.0-18.0); Lymphocyte % 30.8 % (25-47); Mean Corpuscular HGB Conc 34 g/dl (31-36); Mean Corpuscular Hemoglobin 34 pg (27-31); Mean Corpuscular Volume 101 fL (80-94); Mean Platelet Volume 7.6 um3 (7.4-10.4); Nucleated Red Blood Cells % 0.2; Platelet Count 100 10^3/ul (150-450); Red Blood Count 3.97 10^6/ul (4.00-5.40); Red Cell Distribution Width 15 % (10.5-15); White Blood Count 4.7 10^3/ul (3.5-10.8)
[2018-03-27 17:11] LABS: INR 0.93 (0.77-1.02)
[2018-03-27 17:24] LABS: EGFR Non-African American 57.5 (>60)
--- NOTE | 2018-03-27 17:24 | RAD ---
Indication: Fall, ataxia. CT of the brain was performed without IV contrast. Ventricular structures are midline. No midline shift is noted. There is central and cortical atrophy noted. There is no evidence of intracranial mass or hemorrhage. No other high or low density lesions are identified. Mastoid air cells and paranasal sinuses are otherwise unremarkable. When compared to previous exam of December 13, 2017 no significant change is noted. IMPRESSION: Age-appropriate atrophy. No evidence of intracranial mass or hemorrhage is noted.
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
[2018-03-27] MEDS: Metoprolol Succinate XL TAB* 25 MG PO SCH (20:27)
[2018-03-27] MEDS: chlordiazePOXIDE CAP* 25 MG PO SCH (20:27)
[2018-03-27] MEDS: Enoxaparin(*) 40 MG/0.4 ML SYR SUBCUT SCH (20:27)
[2018-03-27] MEDS ORDERED: Atorvastatin* 20 MG TAB PO SCH (21:00)
[2018-03-27] MEDS: Ibuprofen TAB* 400 MG PO SCH (23:06)
--- NOTE | 2018-03-28 07:58 | PN ---
Subjective Date of Service: 03/28/18 Interval History: Mr. Bethea reports feeling better this morning than on arrival. He notes that this episode of alcohol withdrawal seems less severe than in the past. He identifies several stressors that contribute to continued alcohol abuse including the loss of his 6 years ago. However, he does endorse support from Dr. Rodriguez's office and his counselor. He expresses an intention to abstain from alcohol at discharge. Objective Active Medications: Aspirin (Aspirin 81 Mg Chew Tab*) 81 mg PO DAILY JORGE LUIS Atorvastatin Calcium (Lipitor*) 20 mg PO 2100 JORGE LUIS Chlordiazepoxide (Librium Cap*) 25 mg PO TID JOR[facility] LU[facility] Enoxaparin Sodium (Lovenox(*)) 40 mg SUBCUT Q24H JOR[facility] LUIS Ibuprofen (Motrin Tab*) 400 mg PO QPM JORGE LUIS Metoprolol Succinate (Toprol Xl Tab*) 25 mg PO BID JOR[facility] Sertraline HCl (Zoloft*) 50 mg PO DAILY [facility] Thiamine HCl (Vitamin B-1 Tab*) 100 mg PO DAILY [facility]OR[facility]IS Oxygen Devices in Use Now: None Appearance: Male lying in bed eating breakfast in NAD Eyes: No Scleral Icterus Ears/Nose/Mouth/Throat: Mucous Membranes Moist Neck: Trachea Midline Respiratory: Symmetrical Chest Expansion and Respiratory Effort, Clear to Auscultation Cardiovascular: NL Sounds; No Murmurs; No JVD, No Edema Lymphatic: No Cervical Adenopathy Extremities: No Edema Skin: No Rash or Ulcers Neurological: Alert and Oriented x 3, NL Muscle Strength and Tone, - - Very mild resting tremor noted Nutrition: Taking PO's Result Diagrams: 03/27/18 16:55 03/27/18 16:55 Assess/Plan/Problems-Billing Assessment: Mr. Bethea is a 73 yo M with a PMH of alcoholism who was admitted on 03/27/18 with alcohol withdrawal. - Patient Problems (1) Alcohol withdrawal Comment: - Symptoms well controlled thus far, has some mild ataxia but is oriented x 3, no hallucinations, no seizures. - Scheduled chlordiazepoxide 25 mg tid, began taper. - Patient adamant about going home. Has close support from family and friends. (2) Laceration of head Comment: - Occurred a couple of days ago, healing, stiches placed in ED. - Follow up Dr. Rodriguez for removal in 10 days (3) Hyperlipidemia Comment: - Continue atorvastatin. (4) Afib Comment: - Continue metoprolol - Patient only on aspirin for stroke prevention due to alcoholism and frequent falls. (5) Depression Comment: - Continue sertraline. (6) DVT prophylaxis Comment: - Lovenox. (7) Full code status Status and Disposition: OBV. Discharge to home.
[2018-03-28] MEDS: Metoprolol Succinate XL TAB* 25 MG PO SCH (08:40)
[2018-03-28] MEDS: chlordiazePOXIDE CAP* 25 MG PO SCH ×2 (08:40→13:10)
[2018-03-28] MEDS ORDERED: Thiamine TAB* 100 MG TAB PO SCH (09:00)
[2018-03-28] MEDS ORDERED: Sertraline* 50 MG TAB PO SCH (09:00)
[2018-03-28] MEDS ORDERED: Aspirin 81 mg CHEW TAB* 81 MG TAB.CHEW PO SCH (09:00)
[2018-03-28 11:41] VITALS: BP 129/78
[2018-03-28] MEDS: Ibuprofen TAB* 400 MG PO SCH (17:28)
[2018-03-28] MEDS: Enoxaparin(*) 40 MG/0.4 ML SYR SUBCUT SCH (17:29)
--- NOTE | 2018-03-29 02:41 | DS ---
CC: Dr. Rodriguez * [facility] MEDICINE DISCHARGE SUMMARY: DATE OF ADMISSION: 03/27/18 DATE OF DISCHARGE: 03/28/18 PRIMARY CARE PHYSICIAN: Dr. Rodriguez. ATTENDING PHYSICIAN: Dr. Silva Orozco * (dictation provided by Rachel Baldwin NP ). PRIMARY DIAGNOSIS: Alcohol withdrawal. SECONDARY DIAGNOSES: 1. Hypertension. 2. Hyperlipidemia. 3. Depression. MEDICATIONS: 1. Librium 25 mg p.o. b.i.d. x2 days, then Librium 25 mg p.o. daily x2 days, then stop. 2. [place]-3 fatty acid 2 g p.o. b.i.d. 3. Metoprolol succinate 25 mg p.o. b.i.d. 4. Aspirin 81 mg p.o. daily. 5. Sertraline 50 mg p.o. daily. 6. Thiamine 100 mg p.o. daily. HOSPITAL COURSE: Mr. Bethea is a 73-year-old male with a past medical history of alcoholism and hypertension who presented to the hospital on with concern for a fall at home. The patient states that he had fallen while inebriated and hit his head. He was having what he felt was difficulty controlling the bleeding and therefore presented to the ED for evaluation. In the ED, the patient was noted to have a laceration to his forehead, to which stitches were applied. He had a CT of his brain, which showed "age appropriate atrophy, no evidence of intracranial mass or hemorrhages noted." He had good hemostasis. However, the patient was evidencing signs of alcohol withdrawal with significant tremor and ataxia. Mr. Bethea was admitted to the hospital. He was treated with Librium p.o. t.i.d. With this, he has had good control of his alcohol withdrawal symptoms. He states he feels that this is a very mild episode of withdrawal for him given his history. This afternoon, he is only evidencing some very mild ataxia. His vital signs are stable. He is not hypertensive. He is not tachycardic. I recommended to him that he consider staying in the hospital overnight as alcohol withdrawal symptoms can intensify in the 48 to 72-hour period. However , he is adamant that he would like to be discharged today. He is oriented x3. He has good capacity to make medical decisions. He states that he has good support from family and friends who will be checking in on him and then he plans to follow up with Dr. Rodriguez on 04/03/18 for preexisting appointment. He also has support from counselors in the community. Plan to discharge Mr. Bethea home on a brief taper of Librium to help with alcohol withdrawal symptoms. He has also used disulfiram in the past, which he could continue. Mr. Bethea is medically stable for discharge to home. DISPOSITION: To home. DIET: Regular. ACTIVITY: As tolerated. FOLLOWUP PLANS: Please follow up with Dr. Rodriguez for your scheduled appointment on 04/03/18. TIME SPENT: Approximately 60 minutes were spent in the discharge of this patient, more than half time was spent with the patient at the bedside reviewing the events leading up to this hospitalization, performing the physical examination, and reviewing my plan of care. RACHEL BALDWIN, ROGERIO [id number]/CPS #: [id number] TIAN
== END 2018-03-28 17:45 | disposition home or self-care (01) ==
LOC: ED 15:55 → MED 18:43
PROVIDERS: ADMIT Internal Medicine; ATTEND Internal Medicine
DX: F10.239 Alcohol dependence with withdrawal, unspecified (principal); I10 Essential (primary) hypertension; E78.5 Hyperlipidemia, unspecified; R11.0 Nausea; F32.9 Major depressive disorder, single episode, unspecified; S01.111A Laceration without foreign body of right eyelid and periocular area, initial encounter; W19.XXXA Unspecified fall, initial encounter; Y92.9 Unspecified place or not applicable; Z79.82 Long term (current) use of aspirin
CPT/HCPCS: 36415; 70450; 80053; 80320; 82977; 85025; 85610; 85730; 90715; 93005; 99284; A9270-GY; G0378; G0480; G8978-GP-CI; G8979-GP-CI; G8980-GP-CI; J1650; J2060; J3411